=== PATIENT | male | born 1955 | race African-American/Black ===

== ENCOUNTER 2016-12-28 23:58 | Emergency (ER) | payer MEDICAID, OTHER ==
[2016-12-29] MEDS ORDERED: TRAMADOL HCL 50 MG TABLET PO ONE (01:18)
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
[2016-12-29 02:20] VITALS: BP 159/90
== END 2016-12-29 02:20 | disposition home or self-care (01) ==
LOC: ER 23:58
DX: S32.10XA Unspecified fracture of sacrum, initial encounter for closed fracture (principal); J98.11 Atelectasis; F07.81 Postconcussional syndrome; R51 Headache; M54.5 Low back pain; R10.2 Pelvic and perineal pain; M79.604 Pain in right leg; M79.605 Pain in left leg; V89.2XXA Person injured in unspecified motor-vehicle accident, traffic, initial encounter
CPT/HCPCS: 70450; 72125; 72131; 74176; 99284

== ENCOUNTER 2017-01-03 18:38 | Emergency (ER) | payer MEDICAID, OTHER ==
[2017-01-03 18:46] VITALS: BP 170/76
[2017-01-03] MEDS ORDERED: ACETAMINOPHEN 325 MG TABLET PO ONE (19:13)
[2017-01-03] MEDS ORDERED: IBUPROFEN 600 MG TABLET PO ONE (19:13)
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
== END 2017-01-03 20:01 | disposition home or self-care (01) ==
LOC: ER 18:38
DX: L03.116 Cellulitis of left lower limb (principal); M79.672 Pain in left foot
CPT/HCPCS: 99283

== ENCOUNTER 2017-01-04 14:15 | Emergency (ER) | payer MEDICAID, OTHER ==
[2017-01-04 14:33] VITALS: BP 128/86
[2017-01-04] MEDS ORDERED: IBUPROFEN 800 MG TABLET PO ONE (15:31)
[2017-01-04] MEDS ORDERED: SULFAMETHOXAZOLE/TRIMETHOPRIM 800-160 MG TABLET PO ONE (16:19)
[2017-01-04] MEDS ORDERED: CEPHALEXIN 500 MG CAPSULE PO ONE (16:19)
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
== END 2017-01-04 16:34 | disposition home or self-care (01) ==
LOC: ER 14:15
PROC: 0H9KXZZ Drainage of Right Lower Leg Skin, External Approach (ICD-10-PCS; principal; 2017-01-04)
DX: L02.415 Cutaneous abscess of right lower limb (principal); M79.604 Pain in right leg; F17.200 Nicotine dependence, unspecified, uncomplicated; Z59.8 Other problems related to housing and economic circumstances
CPT/HCPCS: 99284; 10060; J3490 ×2

== ENCOUNTER 2017-03-18 13:46 | Emergency (ER) | payer MEDICAID ==
--- NOTE | 2017-03-18 14:09 | ER Document Report ---
HPI - HPI Pain Level: 5 Past Medical History - Social History Family History: Reviewed & Not Pertinent - Past Medical History Cardiac Medical History: Reports: Hx Hypertension - not treated Renal/ Medical History: Denies: Hx Peritoneal Dialysis - Immunizations Hx Diphtheria, Pertussis, Tetanus Vaccination: No Hx Pneumococcal Vaccination: 01/13/15 Vertical Provider Document - INFECTION CONTROL TRAVEL OUTSIDE OF THE [place]. IN LAST 30 DAYS: No - RESPIRATORY O2 Sat by Pulse Oximetry: 92 Course - Vital Signs Vital signs: Temp Pulse Resp BP Pulse Ox 98.1 F 87 16 155/112 H 92 03/18/17 14:03 03/18/17 14:03 03/18/17 14:03 03/18/17 14:03 03/18/17 14:03
--- NOTE | 2017-03-18 14:33 | ER Document Report ---
ED General - General Chief Complaint: Foot Pain Stated Complaint: LEFT FOOT PAIN Time Seen by Provider: 03/18/17 14:05 Mode of Arrival: Ambulatory Information source: Patient Notes: 62-year-old male complaining of leg weakness, giving out on him since december, and shortness of breath when he walks long distances. He has a history of hypertension that is untreated. He does not have a doctor. His roommate encouraged him to come to the hospital today because this morning he had difficulty getting out of bed because of his legs and a headache. He denies headache, shortness of breath, chest pain, abdominal pain, dysuria or groin pain , or rash. TRAVEL OUTSIDE OF THE [place] IN LAST 30 DAYS: No - Related Data Allergies/Adverse Reactions: No Known Allergies Allergy (Verified 03/18/17 13:50) Past Medical History - General Information source: Patient - Social History Smoking Status: Current Every Day Smoker Frequency of alcohol use: Occasional Drug Abuse: None Lives with: Spouse/Significant other Family History: Reviewed & Not Pertinent Patient has suicidal ideation: No Patient has homicidal ideation: No - Past Medical History Cardiac Medical History: Reports: Hx Hypertension - not treated Renal/ Medical History: Denies: Hx Peritoneal Dialysis Surgical Hx: Negative - Immunizations Hx Diphtheria, Pertussis, Tetanus Vaccination: No Hx Pneumococcal Vaccination: 01/13/15 Review of Systems - Review of Systems Constitutional: No symptoms reported EENT: No symptoms reported Cardiovascular: No symptoms reported Respiratory: See HPI Gastrointestinal: No symptoms reported Genitourinary: No symptoms reported Male Genitourinary: No symptoms reported Musculoskeletal: See HPI Skin: No symptoms reported Hematologic/Lymphatic: No symptoms reported Neurological/Psychological: No symptoms reported Physical Exam - Vital signs Vitals: Temp Pulse Resp BP Pulse Ox 98.1 F 87 16 155/112 H 92 03/18/17 14:03 03/18/17 14:03 03/18/17 14:03 03/18/17 14:03 03/18/17 14:03 Interpretation: Hypertensive - General General appearance: Appears well, Alert In distress: None - HEENT Head: Normocephalic, Atraumatic Eyes: Normal Conjunctiva: Normal Pupils: PERRL Tympanic membrane: Normal Mucous membranes: Normal Pharynx: Normal Neck: Supple. No: Lymphadenopathy, Thyromegally - Respiratory Respiratory status: No respiratory distress Chest status: Nontender Breath sounds: Normal Chest palpation: Normal - Cardiovascular Rhythm: Regular Heart sounds: Normal auscultation Murmur: No - Abdominal Inspection: Normal Distension: No distension Bowel sounds: Normal Tenderness: Nontender. No: Tender Organomegaly: No organomegaly - Back Back: Normal, Nontender. No: Vertebra tenderness - Extremities General upper extremity: Normal inspection, Nontender, Normal color, Normal ROM , Normal temperature General lower extremity: Normal inspection, Nontender, Normal color, Normal ROM , Normal temperature, Normal weight bearing. No: Russell's sign - Neurological Neuro grossly intact: Yes Cognition: Normal Orientation: AAOx4 [place] Coma Scale Eye Opening: Spontaneous Cristal Coma Scale Verbal: Oriented [place] Coma Scale Motor: Obeys Commands [place] Coma Scale Total: 15 Speech: Normal Motor strength normal: LUE, RUE, LLE, RLE Sensory: Normal - Psychological Associated symptoms: Normal affect, Normal mood - Skin Skin Temperature: Warm Skin Moisture: Dry Skin Color: Normal Skin irregularity: negative: Rash Course - Re-evaluation Re-evalutation: 03/18/17 16:20 Patient states he feels better after the albuterol nebulizer I will prescribe a metered-dose inhaler. The lab work is negative the chest x-ray is negative the EKG is normal sinus rhythm I discussed this case with Dr. Rosen and he stated the patient can be discharged home with a internal medicine follow-up. - Vital Signs Vital signs: Temp Pulse Resp BP Pulse Ox 97.8 F 88 20 183/90 H 92 03/18/17 16:56 03/18/17 16:56 03/18/17 16:56 03/18/17 16:56 03/18/17 16:56 - Laboratory Result Diagrams: 03/18/17 14:49 03/18/17 14:49 Laboratory results interpreted by me: 03/18/17 03/18/17 03/18/17 14:49 14:49 14:49 Hgb 12.6 L Hct 37.5 L RDW 14.1 H Potassium 3.5 L Glucose 112 H Creatine Kinase 332 H Urine Blood SMALL H Ur Leukocyte Esterase MODERATE H - EKG Interpretation by Me EKG shows normal: Sinus rhythm Rate: Normal Rhythm: NSR Discharge - Discharge Clinical Impression: episodes of shortness of breath Leg weakness Qualifiers: Laterality: bilateral Qualified Code(s): R29.898 - Other symptoms and signs involving the musculoskeletal system Hypertension Qualifiers: Hypertension type: essential hypertension Qualified Code(s): I10 - Essential ( primary) hypertension Condition: Good Disposition: HOME, SELF-CARE Instructions: Family Physicians / Practices, Inhaled Bronchodilators ([facility]) Additional Instructions: see family practice of internal medicine doctor as soon as possible copy of all lags, ekg , chest xray given to you use the albuterol meter dose inhaler quit smoking to er if worse Prescriptions: Albuterol Sulfate [Proair HFA Inhalation Aerosol 8.5 gm MDI] 2 puff IH Q3HP PRN #1 [email or web address] PRN Reason: Referrals: JASPAL ORTIZ MD [ACTIVE STAFF] - Follow up tomorrow
[2017-03-18] MEDS ORDERED: ALBUTEROL SULFATE 0.083% NEB 2.5 MG/3 ML AMPUL NEB ONE (14:58)
[2017-03-18 15:13] LABS: ABSOLUTE EOSINOPHILS # (AUTO) 0.1 10^3/uL (0.0-0.6); ABSOLUTE LYMPHOCYTES (AUTO) 1.2 10^3/uL (0.5-4.7); ABSOLUTE MONOCYTES (AUTO) 0.6 10^3/uL (0.1-1.4); ABSOLUTE NEUT (AUTO) 3.8 10^3/uL (1.7-8.2); BASOPHILS % (AUTO) 0.5 % (0-2); EOSINOPHILS % (AUTO) 2.4 % (0-6); HEMATOCRIT 37.5 % (37.9-51.0); HEMOGLOBIN 12.6 g/dL (13.5-17.0); LYMPHOCYTES % (AUTO) 20.3 % (13-45); MEAN CORPUSCULAR HEMOGLOBIN 27.1 pg (27.0-33.4); MEAN CORPUSCULAR HGB CONC 33.6 g/dL (32.0-36.0); MEAN CORPUSCULAR VOLUME 81 fl (80-97); MONOCYTES % (AUTO) 10.5 % (3-13); PLATELET COUNT 271 10^3/uL (150-450); RED BLOOD COUNT 4.66 10^6/uL (4.35-5.55); RED CELL DISTRIBUTION WIDTH 14.1 % (11.5-14.0); SEGMENTED NEUTROPHILS % (AUTO) 66.3 % (42-78); TOTAL CELLS COUNTED % (AUTO) 100 %; WHITE BLOOD COUNT 5.8 10^3/uL (4.0-10.5)
[2017-03-18 15:14] LABS: APPEARANCE,URINE CLEAR; BILIRUBIN,URINE NEGATIVE (NEGATIVE); COLOR,URINE YELLOW; GLUCOSE, URINE NEGATIVE (NEGATIVE); KETONES,URINE NEGATIVE (NEGATIVE); LEUKOCYTE ESTERASE,URINE MODERATE (NEGATIVE); NITRITE,URINE NEGATIVE (NEGATIVE); PROTEIN,URINE NEGATIVE (NEGATIVE); URINE SPECIFIC GRAVITY 1.013; UROBILINOGEN,URINE NEGATIVE mg/dL (<2.0)
--- NOTE | 2017-03-18 15:23 | RADIOLOGY REPORT (SQ) ---
EXAM DESCRIPTION: CHEST PA/LAT COMPLETED DATE/TIME: 03/18/2017 3:10 pm REASON FOR STUDY: sob with exertion COMPARISON: 07/31/2014 EXAM PARAMETERS: NUMBER OF VIEWS: two views TECHNIQUE: Digital Frontal and Lateral radiographic views of the chest acquired. RADIATION DOSE: NA LIMITATIONS: none FINDINGS: LUNGS AND PLEURA: No opacities, masses or pneumothorax. No pleural effusion. MEDIASTINUM AND HILAR STRUCTURES: No masses or contour abnormalities. HEART AND VASCULAR STRUCTURES: Heart normal size. No evidence for failure. BONES: No acute findings. Moderate thoracic spondylosis. HARDWARE: None in the chest. OTHER: No other significant finding. IMPRESSION: NO SIGNIFICANT RADIOGRAPHIC FINDING IN THE CHEST. TECHNICAL DOCUMENTATION: JOB ID: [id number] [employer]- All Rights Reserved
[2017-03-18 15:30] LABS: ALANINE AMINOTRANSFERASE 26 U/L (21-72); ALBUMIN 3.6 g/dL (3.5-5.0); ALKALINE PHOSPHATASE 95 U/L (38-126); ANION GAP 12 (5-19); ASPARTATE AMINO TRANSFERASE 22 U/L (17-59); BILIRUBIN,DIRECT 0.2 mg/dL (0.0-0.4); BILIRUBIN,TOTAL 0.3 mg/dL (0.2-1.3); BLOOD UREA NITROGEN 10 mg/dL (7-20); CALCIUM 9.3 mg/dL (8.4-10.2); CARBON DIOXIDE 26 mmol/L (22-30); CHLORIDE 107 mmol/L (98-107); CREATINE KINASE 332 U/L (55-170); GLUCOSE 112 mg/dL (75-110); MAGNESIUM 1.8 mg/dL (1.6-2.3); POTASSIUM 3.5 mmol/L (3.6-5.0); SODIUM 144.5 mmol/L (137-145); TOTAL PROTEIN 6.6 g/dL (6.3-8.2)
[2017-03-18 15:41] LABS: CREATINE KINASE MB 3.04 ng/mL (<4.55); TROPONIN I 0.016 ng/mL
[2017-03-18] MEDS ORDERED: ALBUTEROL SULFATE HFA (90 MCG/PUFF) 200 PUFF/8.5 GM MDI IH ONE (16:23)
[2017-03-18 16:56] VITALS: BP 183/90
--- NOTE | 2017-03-19 09:22 | EKG REPORT ---
SEVERITY:- ABNORMAL ECG - SINUS RHYTHM PROBABLE LEFT ATRIAL ABNORMALITY LVH WITH SECONDARY REPOLARIZATION ABNORMALITY ANTERIOR ST ELEVATION, PROBABLY DUE TO LVH : Confirmed by: Daren Higginbotham 19-Mar-2017 09:21:08
== END 2017-03-18 16:55 | disposition home or self-care (01) ==
LOC: ER 13:46
DX: R06.02 Shortness of breath (principal); R53.1 Weakness; I10 Essential (primary) hypertension; R51 Headache; F17.200 Nicotine dependence, unspecified, uncomplicated
CPT/HCPCS: 93005; 94640; 99284; 36415; 82553; 82550; 83735; 85025; 80053; 81001; 84484; 71046; 93010; J3490

== ENCOUNTER 2017-03-19 15:39 | Emergency (ER) | payer MEDICAID ==
[2017-03-19] MEDS ORDERED: LISINOPRIL 10 MG TABLET PO ONE (16:35)
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
--- NOTE | 2017-03-19 17:52 | RADIOLOGY REPORT (SQ) ---
EXAM DESCRIPTION: CT HEAD WITHOUT COMPLETED DATE/TIME: 03/19/2017 5:29 pm REASON FOR STUDY: Left leg keeps giving out COMPARISON: None. TECHNIQUE: Axial images acquired through the brain without intravenous contrast. Images reviewed wi th bone, brain and subdural windows. Images stored on PACS. All CT scanners at this facility use dose modulation, iterative reconstruction, and/or weight based d osing when appropriate to reduce radiation dose to as low as reasonably achievable (ALARA). [facility]: Dose Right [facility]: CareDose [facility]: Dose Right [facility]: Teradose 4D [facility]: Smart PDV RADIATION DOSE: CT Rad equipment meets quality standard of care and radiation dose reduction techniq ues were employed. CTDIvol: 64.6 mGy. DLP: 1034 mGy-cm. mGy. LIMITATIONS: None. FINDINGS: VENTRICLES: Generalize compression bilateral. CEREBRUM: No masses. No hemorrhage. 3.9 mm midline shift. No evidence for acute infarction. Normal escobedo/white matter differentiation. No areas of low density in the white matter. CEREBELLUM: No masses. No hemorrhage. No alteration of density. No evidence for acute infarction. EXTRAAXIAL SPACES: There are bilateral acute and subacute mixed subdural hematomas. The largest is o n the right. Measures 2 cm. Frontal component is more acute with an isodense component along the co nvexities. Left subdural is 1.3 cm. Frontal component more acute with an isodense component along t he convexities. ORBITS AND GLOBE: No intra- or extraconal masses. Normal contour of globe without masses. CALVARIUM: No fracture. PARANASAL SINUSES: Chronic right maxillary sinus disease. SOFT TISSUES: No mass or hematoma. OTHER: No other significant finding. IMPRESSION: Bilateral combination acute/subacute subdural hematomas right larger than left with 3.9 mm midline shift. No herniation. Compression of the ipsilateral ventricles. EVIDENCE OF ACUTE STROKE: NO. COMMENT: Pertinent findings on the imaging study reported as a CRITICAL RESULT to REYNA HUNT MD at17:46 on 03/19/2017. Category of Critical Result: Subdural hematomas. Quality ID # [id number]: Final reports with documentation of one or more dose reduction techniques (e.g., Au tomated exposure control, adjustment of the mA and/or kV according to patient size, use of iterative reconstruction technique) TECHNICAL DOCUMENTATION: JOB ID: [id number] [employer]- All Rights Reserved
[2017-03-19] MEDS ORDERED: LEVETIRACETAM 500 MG TABLET PO ONE (19:29)
[2017-03-19] MEDS ORDERED: NICOTINE 14 MG/24 HR PATCH.TD24 TD ONE (22:53)
[2017-03-20 00:33] VITALS: BP 152/94
== END 2017-03-20 00:42 | disposition short-term general hospital (02) ==
LOC: ER 15:39
DX: S06.5X0A Traumatic subdural hemorrhage without loss of consciousness, initial encounter (principal); R42 Dizziness and giddiness; R51 Headache; F17.200 Nicotine dependence, unspecified, uncomplicated; V29.40XA Motorcycle driver injured in collision with unspecified motor vehicles in traffic accident, initial encounter
CPT/HCPCS: 99284; 70450; J3490 ×2

== ENCOUNTER 2017-04-19 09:45 | Emergency (ER) | payer MEDICAID ==
--- NOTE | 2017-04-19 11:03 | ER Document Report ---
HPI - HPI Pain Level: 5 - MUSCULOSKELETAL Musculoskeletal: REPORTS: Extremity pain Past Medical History - Social History Smoking Status: Current Every Day Smoker Chew tobacco use (# tins/day): No Frequency of alcohol use: None Drug Abuse: None Family History: Reviewed & Not Pertinent Patient has suicidal ideation: No Patient has homicidal ideation: No - Past Medical History Cardiac Medical History: Reports: Hx Hypertension - not treated Denies: Hx Congestive Heart Failure Pulmonary Medical History: Denies: Hx COPD Neurological Medical History: Denies: Hx Cerebrovascular Accident Endocrine Medical History: Denies: Hx Diabetes Mellitus Type 1, Hx Diabetes Mellitus Type 2 Renal/ Medical History: Denies: Hx Peritoneal Dialysis - Immunizations Hx Diphtheria, Pertussis, Tetanus Vaccination: No Hx Pneumococcal Vaccination: 01/13/15 Vertical Provider Document - INFECTION CONTROL TRAVEL OUTSIDE OF THE [place]. IN LAST 30 DAYS: No - RESPIRATORY O2 Sat by Pulse Oximetry: 97 Course - Vital Signs Vital signs: Temp Pulse Resp BP Pulse Ox 98.1 F 73 18 151/74 H 97 04/19/17 10:16 04/19/17 10:16 04/19/17 10:16 04/19/17 10:16 04/19/17 10:16
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
--- NOTE | 2017-04-19 11:58 | RADIOLOGY REPORT (SQ) ---
EXAM DESCRIPTION: CT HEAD WITHOUT COMPLETED DATE/TIME: 04/19/2017 11:36 am REASON FOR STUDY: recent dx subdural hematoma COMPARISON: 03/19/2017, 12/29/2016, 12/24/2016 CT brain exams TECHNIQUE: Axial images acquired through the brain without intravenous contrast. Images reviewed wi th bone, brain and subdural windows. Images stored on PACS. All CT scanners at this facility use dose modulation, iterative reconstruction, and/or weight based d osing when appropriate to reduce radiation dose to as low as reasonably achievable (ALARA). [facility]: Dose Right [facility]: CareDose [facility]: Dose Right [facility]: Teradose 4D [facility]: Smart Bubbl RADIATION DOSE: CT Rad equipment meets quality standard of care and radiation dose reduction techniq ues were employed. CTDIvol: 64.6 mGy. DLP: 1163 mGy-cm. mGy. LIMITATIONS: None. FINDINGS: Since the prior study 03/19/2017, patient has had surgery to extract bilateral subdural hemo rrhages. On the right side, an anterior frontal and posterior frontal kendell hole are present. In the inferior aspect of the right frontal region, a thin rim of residual subacute subdural hemorrhage is present 8 mm in thickness on axial image 19 (was 17 mm in thickness). On the left side, no residual subdural hemorrhage is identified. There is a left posterior frontal/t emporal kendell hole. Left posterior frontal dural calcification without hemorrhage is present adjacent to the coronal. VENTRICLES: Normal size and contour. CEREBRUM: No masses. No hemorrhage. No midline shift. No evidence for acute infarction. Old ischem ic change in the right caudate. Minimal bifrontal small vessel ischemic change. Mild bilateral basa l ganglia calcifications. No CT evidence of acute large territory ischemic change. CEREBELLUM: No masses. No hemorrhage. No alteration of density. No evidence for acute infarction. EXTRAAXIAL SPACES: As above. ORBITS AND GLOBE: No intra- or extraconal masses. Normal contour of globe without masses. CALVARIUM: No fracture. PARANASAL SINUSES: Right maxillary sinus mucous membrane thickening. SOFT TISSUES: No mass or hematoma. OTHER: No other significant finding. IMPRESSION: Post surgery for extraction of bilateral subdural hemorrhages since 03/19/2017. Minimal t hin rim right anterior frontal subdural fluid collection is present today, smaller than on 03/19/2017. No local mass effect. No significant left subdural fluid collection today. No CT evidence of acute large territory ischemic change, acute intracranial hemorrhage, mass effect, or midline shift. EVIDENCE OF ACUTE STROKE: NO. COMMENT: Quality ID # [id number]: Final reports with documentation of one or more dose reduction techniques (e.g., Automated exposure control, adjustment of the mA and/or kV according to patient size, use of iterative reconstruction technique) TECHNICAL DOCUMENTATION: JOB ID: [id number] [employer]- All Rights Reserved
--- NOTE | 2017-04-19 12:42 | EKG REPORT ---
SEVERITY:- ABNORMAL ECG - SINUS RHYTHM PROBABLE LEFT ATRIAL ABNORMALITY LEFT VENTRICULAR HYPERTROPHY ANTERIOR ST ELEVATION, PROBABLY DUE TO LVH : Confirmed by: Daren Higginbotham 19-Apr-2017 12:41:37
[2017-04-19 14:06] LABS: ABSOLUTE BASOPHILS # (AUTO) 0.1 10^3/uL (0.0-0.2); ABSOLUTE EOSINOPHILS # (AUTO) 0.1 10^3/uL (0.0-0.6); ABSOLUTE LYMPHOCYTES (AUTO) 1.2 10^3/uL (0.5-4.7); ABSOLUTE MONOCYTES (AUTO) 0.5 10^3/uL (0.1-1.4); ABSOLUTE NEUT (AUTO) 2.7 10^3/uL (1.7-8.2); BASOPHILS % (AUTO) 1.2 % (0-2); EOSINOPHILS % (AUTO) 3.1 % (0-6); HEMATOCRIT 34.8 % (37.9-51.0); HEMOGLOBIN 11.7 g/dL (13.5-17.0); LYMPHOCYTES % (AUTO) 25.7 % (13-45); MEAN CORPUSCULAR HEMOGLOBIN 26.7 pg (27.0-33.4); MEAN CORPUSCULAR HGB CONC 33.7 g/dL (32.0-36.0); MEAN CORPUSCULAR VOLUME 79 fl (80-97); MONOCYTES % (AUTO) 10.2 % (3-13); PLATELET COUNT 266 10^3/uL (150-450); RED BLOOD COUNT 4.39 10^6/uL (4.35-5.55); RED CELL DISTRIBUTION WIDTH 13.6 % (11.5-14.0); SEGMENTED NEUTROPHILS % (AUTO) 59.8 % (42-78); TOTAL CELLS COUNTED % (AUTO) 100 %; WHITE BLOOD COUNT 4.6 10^3/uL (4.0-10.5)
[2017-04-19 14:10] LABS: INTERNATIONAL RATION (INR) 1.01
[2017-04-19 14:11] LABS: PARTIAL THROMBOPLASTIN TIME 37.2 SEC (23.5-35.8)
[2017-04-19 14:30] LABS: ALANINE AMINOTRANSFERASE 29 U/L (21-72); ALBUMIN 3.8 g/dL (3.5-5.0); ALKALINE PHOSPHATASE 104 U/L (38-126); ANION GAP 8 (5-19); ASPARTATE AMINO TRANSFERASE 22 U/L (17-59); BILIRUBIN,DIRECT 0.1 mg/dL (0.0-0.4); BILIRUBIN,TOTAL 0.3 mg/dL (0.2-1.3); BLOOD UREA NITROGEN 8 mg/dL (7-20); CALCIUM 9.5 mg/dL (8.4-10.2); CARBON DIOXIDE 27 mmol/L (22-30); CHLORIDE 107 mmol/L (98-107); CREATINE KINASE 252 U/L (55-170); GLUCOSE 94 mg/dL (75-110); LIPASE 35.5 U/L (23-300); POTASSIUM 4.1 mmol/L (3.6-5.0); SODIUM 142.4 mmol/L (137-145); TOTAL PROTEIN 6.7 g/dL (6.3-8.2)
[2017-04-19 14:48] LABS: TROPONIN I < 0.012 ng/mL
--- NOTE | 2017-04-19 16:10 | ER Document Report ---
ED General - General Chief Complaint: Leg Pain Stated Complaint: LEG PAIN Time Seen by Provider: 04/19/17 11:03 Mode of Arrival: Ambulatory TRAVEL OUTSIDE OF THE [place] IN LAST 30 DAYS: No - HPI Patient complains to provider of: Patient complained of bilateral leg pain, head pain, chest pain Onset: This morning Associated symptoms: Body/muscle aches, Chest pain. denies: Diarrhea, Fever, Nausea, Vomiting, Shortness of breath, Weakness Exacerbated by: Movement Relieved by: Denies - Related Data Allergies/Adverse Reactions: No Known Allergies Allergy (Verified 04/19/17 09:53) Past Medical History - General Information source: Patient - Social History Smoking Status: Current Every Day Smoker Chew tobacco use (# tins/day): No Frequency of alcohol use: None Drug Abuse: None Family History: Reviewed & Not Pertinent Patient has suicidal ideation: No Patient has homicidal ideation: No - Past Medical History Cardiac Medical History: Reports: Hx Hypertension - not treated Denies: Hx Congestive Heart Failure Pulmonary Medical History: Reports: Hx Bronchitis Denies: Hx COPD Neurological Medical History: Reports: Other - Bilateral subdural hematomas recently drained. Denies: Hx Cerebrovascular Accident Endocrine Medical History: Denies: Hx Diabetes Mellitus Type 1, Hx Diabetes Mellitus Type 2 Renal/ Medical History: Denies: Hx Peritoneal Dialysis Malignancy Medical History: Reports None Musculoskeltal Medical History: Reports Hx Muscle Weakness Skin Medical History: Reports None Psychiatric Medical History: Reports: None Traumatic Medical History: Reports: None Past Surgical History: Reports: Hx Neurologic Surgery - drainage SDH - Immunizations Hx Diphtheria, Pertussis, Tetanus Vaccination: No Hx Pneumococcal Vaccination: 01/13/15 Review of Systems - Review of Systems Constitutional: Weakness. denies: Fever EENT: No symptoms reported Cardiovascular: See HPI Respiratory: No symptoms reported Gastrointestinal: No symptoms reported Genitourinary: No symptoms reported Male Genitourinary: No symptoms reported Musculoskeletal: See HPI Skin: No symptoms reported Hematologic/Lymphatic: No symptoms reported Neurological/Psychological: No symptoms reported Physical Exam - Vital signs Vitals: Temp Pulse Resp BP Pulse Ox 98.1 F 73 18 151/74 H 97 04/19/17 10:16 04/19/17 10:16 04/19/17 10:16 04/19/17 10:16 04/19/17 10:16 - Notes Notes: PHYSICAL EXAMINATION: GENERAL: Well-appearing, well-nourished and in no acute distress. HEAD: Atraumatic, normocephalic. EYES: Pupils equal round and reactive to light, extraocular movements intact, sclera anicteric, conjunctiva are normal. ENT: Nares patent, oropharynx clear without exudates. Moist mucous membranes. NECK: Normal range of motion, supple without lymphadenopathy LUNGS: Breath sounds clear to auscultation bilaterally and equal. No wheezes rales or rhonchi. HEART: Regular rate and rhythm without murmurs ABDOMEN: Soft, nontender, nondistended abdomen. No guarding, no rebound. No masses appreciated. Musculoskeletal: Normal range of motion, no pitting or edema. No cyanosis. No calf swelling or tenderness with palpation NEUROLOGICAL: Cranial nerves grossly intact. Normal speech, normal gait. Normal sensory, motor exams PSYCH: Normal mood, normal affect. SKIN: Warm, Dry, normal turgor, no rashes or lesions noted. Course - Re-evaluation Re-evalutation: 04/19/17 16:09 We did call [id number] in the electrical instrument technician stated that there was a left popliteal cyst no DVTs bilaterally. 04/19/17 20:24 Prior to discharge patient was up and ambulating the halls. He stated that he had a appointment with his humane agent and he had to leave. 04/19/17 20:27 Labs- All tests 24 hr 04/19/17 04/19/17 04/19/17 13:52 13:52 13:52 WBC 4.6 RBC 4.39 Hgb 11.7 L Hct 34.8 L MCV 79 L MCH 26.7 L MCHC 33.7 RDW 13.6 Plt Count 266 Seg Neutrophils % 59.8 Lymphocytes % 25.7 Monocytes % 10.2 Eosinophils % 3.1 Basophils % 1.2 Absolute Neutrophils 2.7 Absolute Lymphocytes 1.2 Absolute Monocytes 0.5 Absolute Eosinophils 0.1 Absolute Basophils 0.1 PT 14.0 INR 1.01 APTT 37.2 H Sodium 142.4 Potassium 4.1 Chloride 107 Carbon Dioxide 27 Anion Gap 8 BUN 8 Creatinine 0.75 Est GFR ( Amer) > 60 Est GFR (Non-Af Amer) > 60 Glucose 94 Calcium 9.5 Total Bilirubin 0.3 Direct Bilirubin 0.1 Neonat Total Bilirubin Not Reportable Neonat Direct Bilirubin Not Reportable Neonat Indirect Bili Not Reportable AST 22 ALT 29 Alkaline Phosphatase 104 Creatine Kinase 252 H CK-MB (CK-2) Troponin I Total Protein 6.7 Albumin 3.8 Lipase 35.5 04/19/17 13:52 WBC RBC Hgb Hct MCV MCH MCHC RDW Plt Count Seg Neutrophils % Lymphocytes % Monocytes % Eosinophils % Basophils % Absolute Neutrophils Absolute Lymphocytes Absolute Monocytes Absolute Eosinophils Absolute Basophils PT INR APTT Sodium Potassium Chloride Carbon Dioxide Anion Gap BUN Creatinine Est GFR ( Amer) Est GFR (Non-Af Amer) Glucose Calcium Total Bilirubin Direct Bilirubin Neonat Total Bilirubin Neonat Direct Bilirubin Neonat Indirect Bili AST ALT Alkaline Phosphatase Creatine Kinase CK-MB (CK-2) 1.20 Troponin I < 0.012 Total Protein Albumin Lipase 04/19/17 20:[address] 04/19/17 11:15 IMPRESSION: Post surgery for extraction of bilateral subdural hemorrhages since 03/19/2017. Minimal thin rim right anterior frontal subdural fluid collection is present today, smaller than on 03/19/2017. No local mass effect. No significant left subdural fluid collection today. No CT evidence of acute large territory ischemic change, acute intracranial hemorrhage, mass effect, or midline shift. EVIDENCE OF ACUTE STROKE: NO. - Vital Signs Vital signs: Temp Pulse Resp BP Pulse Ox 97.4 F 72 20 150/92 H 97 04/19/17 16:12 04/19/17 16:12 04/19/17 16:12 04/19/17 16:12 04/19/17 16:12 - Laboratory Result Diagrams: 04/19/17 13:52 04/19/17 13:52 Laboratory results interpreted by me: 04/19/17 04/19/17 04/19/17 13:52 13:52 13:52 Hgb 11.7 L Hct 34.8 L MCV 79 L MCH 26.7 L APTT 37.2 H Creatine Kinase 252 H - EKG Interpretation by Fl EKG shows normal: Sinus rhythm Rate: Normal Voltage: Consistant with LVH When compared to previous EKG there are: No significant change Discharge - Discharge Clinical Impression: Leg pain Disposition: HOME, SELF-CARE Instructions: Leg Pain Nonspecific ([facility]) Additional Instructions: Follow up with your physician tomorrow for further care or return to the ED IMMEDIATELY if symptoms worsen or new concerns occur. If you cannot afford to follow up with your primary care physician a list of low cost clinics have been provided at the end of your discharge papers as well. Referrals: [facility] [Provider Group] - Follow up as needed
[2017-04-19 16:13] VITALS: BP 150/92
--- NOTE | 2017-04-20 09:09 | XCELERA REPORT ---
[address] [address] Lower Extremity Venous Evaluation Name: GORDON HERNANDEZ Age: 62 yrs Gender: Male : 1955 Patient Status: Emergency Patient Location: ER Study Date: 04/19/2017 11:50 AM Procedure: Color flow and duplex imaging bilaterally of the veins of the lower extremities as well as the Common Femoral veins. Reason For Study: bilateral calf pain Ordering Physician: REEMA JOAQUIN Performed By: Karrie Rodrigues Right Sided Venous Evaluation Normal vessel filling wall to wall, compression and augmentation as well as Colour flow down to the infrageniculate veins. Left Sided Venous Evaluation Noon vascular mass, in Popliteal fossa, 2.2 x 2.6 x 3.6 cms. Normal vessel filling wall to wall, compression and augmentation as well as Colour flow down to the infrageniculate veins. Interpretation Summary No duplex evidence of DVT or obstruction in the bilateral lower extremities. Incidental finding of Left Bakers cyst. : REEMA JOAQUIN > Antonio Alas
== END 2017-04-19 16:19 | disposition home or self-care (01) ==
LOC: ER 09:45
DX: M79.605 Pain in left leg (principal); M79.604 Pain in right leg; M79.1 Myalgia; R07.9 Chest pain, unspecified; F17.200 Nicotine dependence, unspecified, uncomplicated
CPT/HCPCS: 36415; 70450; 80053; 82550; 82553; 83690; 84484; 85025; 85610; 85730; 93005; 93010; 93970; 99285

== ENCOUNTER 2018-03-23 23:02 | Emergency (ER) | payer MEDICARE, MEDICAID ==
[2018-03-23] MEDS ORDERED: HYDROCHLOROTHIAZIDE 25 MG TABLET PO ONE (23:42)
[2018-03-23] MEDS ORDERED: AMLODIPINE BESYLATE 10 MG TABLET PO ONE (23:42)
[2018-03-23] MEDS ORDERED: ALBUTEROL SULFATE 0.083% NEB 2.5 MG/3 ML AMPUL NEB ONE (23:43)
--- NOTE | 2018-03-23 23:49 | ER Document Report ---
ED General - General Chief Complaint: Shortness Of Breath Stated Complaint: SHORTNESS OF BREATH Time Seen by Provider: 03/23/18 23:37 Notes: Patient is a 63-year-old male presents with complaint of difficulty breathing. He is also has some nausea. No vomiting. He says he just feels weak or than normal. He says he feels as if he has been going downhill over the course of a year. He is noted to have very high blood pressure when he arrives. Patient says that he used to be on blood pressure medication but he still follow-up with his doctor stopped taking medication and she did not feel it was any help to him. He denies any chest pain. He says he is been coughing a lot has some shortness of breath. No fevers. He has some sore throat. Some nausea. No vomiting. No diarrhea. Last bowel movement was today and was normal. No blood in the stool. On exam his abdomen looks a little bit distended however the patient himself says this is normal. His says that this may be a little bit more distended than normal. Patient says he will occasionally have a headache but has not had any headache today. No weakness or numbness into the extremities. TRAVEL OUTSIDE OF THE [place] IN LAST 30 DAYS: No - Related Data Allergies/Adverse Reactions: No Known Allergies Allergy (Verified 03/24/18 05:47) Past Medical History - Social History Smoking Status: Current Every Day Smoker Frequency of alcohol use: Occasional Drug Abuse: None Family History: Reviewed & Not Pertinent - Past Medical History Cardiac Medical History: Reports: Hx Hypertension - not treated Denies: Hx Congestive Heart Failure Pulmonary Medical History: Reports: Hx Bronchitis Denies: Hx COPD Neurological Medical History: Denies: Hx Cerebrovascular Accident Endocrine Medical History: Denies: Hx Diabetes Mellitus Type 1, Hx Diabetes Mellitus Type 2 Renal/ Medical History: Denies: Hx Peritoneal Dialysis Musculoskeletal Medical History: Reports Hx Muscle Weakness Past Surgical History: Reports: Hx Neurologic Surgery - drainage SDH - Immunizations Hx Diphtheria, Pertussis, Tetanus Vaccination: No Hx Pneumococcal Vaccination: 01/13/15 Review of Systems - Review of Systems Notes: My Normal Review Basic REVIEW OF SYSTEMS: CONSTITUTIONAL : Denies fever, chills, or sweats. Denies recent illness. EENT: Throat. CARDIOVASCULAR: Denies chest pain. RESPIRATORY: Cough. Some shortness of breath. GASTROINTESTINAL: Denies abdominal pain. Nausea. Some mild abdominal distention. GENITOURINARY: Denies difficulty urinating, painful urination, burning, frequency, or blood in urine. MUSCULOSKELETAL: Denies neck or back pain or joint pain or swelling. SKIN: Denies rash or skin lesions. NEUROLOGICAL: Denies altered mental status or loss of consciousness. Denies headache. Denies weakness or paralysis or loss of use of either side. Denies problems with gait or speech. Denies sensory or motor loss. ALL OTHER SYSTEMS REVIEWED AND NEGATIVE. Physical Exam - Vital signs Vitals: Temp Pulse Resp BP Pulse Ox 98.0 F 70 29 H 215/91 H 93 03/23/18 23:13 03/23/18 23:13 03/23/18 23:13 03/23/18 23:13 03/23/18 23:13 - Notes Notes: General Appearance: Well nourished, alert, cooperative, no acute distress, no obvious discomfort. Vitals: reviewed, See vital signs table. Head: no swelling or tenderness to the head Eyes: PERRL, EOMI, Conjuctiva clear Mouth: No decreasd moisture Throat: No tonsillar inflammation, No airway obstruction, No lymphadenopathy Neck: Supple, no neck tenderness, No thyromegaly Lungs: Mucousy sounding breath sounds bilaterally. No wheezing. Slight tachypn ea. Heart: Normal rate, Regular rythm, No murmur, no rub Abdomen: Normal BS, soft, No rigidity, No abdominal tenderness, slightly distended abdomen, no guarding, no rebound, no abdominal masses, no organomegaly Extremities: strength 5/5 in all extremities, good pulses in all extremities, no swelling or tenderness in the extremities, no edema. Skin: warm, dry, appropriate color, no rash Neuro: speech clear, oriented x 3, normal affect, responds appropriately to questions. Cranial nerves II through XII are intact. Distal sensation intact. Patient moves all extremities without difficulty. Course - Re-evaluation Re-evalutation: 03/23/18 23:45 Patient does have some changes on his EKG. I did not suspect acute ST elevation NH at this time. Patient has no chest pain. He looks clinically well. He does have some shortness of breath however he does have what sounds to be a lot of mucus in his lungs and therefore given breathing treatment. Being his chest pain-free and the mild ST segment elevation he has is similar to his previous EKG I do not feel that he is a candidate for thrombolytics going forward for STEMI workup. I suspect a lot of this is related to his untreated hypertension. I will place him on medication for his hypertension. Blood work has been drawn including cardiac enzymes. He will get a breathing treatment. Chest x-rays been ordered. We will keep on the monitor and progress from here. 03/24/18 03:18 Patient was given some Lasix. He has urinated several times since then. Breathing is improving. He is currently resting comfortably with oxygen saturation 97%. He looks well. Is no distress. His blood pressure is improving since the blood pressure medications. His current blood pressure is 166/89. Patient any chest pain however I still did a troponin and delta troponin because of the nausea and weakness in the significant hypertension. His troponins have remained stable and did not show any evidence of him having any form of myocardial infarction. I informed patient that he needs to continue take the blood pressure medication as prescribed. Also prescribe him a low-dose Lasix to take every day. I will refer him to the milk receiver for further evaluation and management of his blood pressure. Patient currently does not have a primary care physician. Patient agrees to follow-up with a milk receiver. I strongly encouraged him to return to ER immediately if he has fevers, vomiting, any abdominal pain, or feels unwell. Dictation of this chart was performed using voice recognition software; therefore, there may be some unintended grammatical errors. - Vital Signs Vital signs: Temp Pulse Resp BP Pulse Ox 97.7 F 70 21 H 166/89 H 96 03/24/18 03:16 03/23/18 23:13 03/24/18 03:16 03/24/18 03:16 03/24/18 03:16 - Laboratory Result Diagrams: 03/23/18 23:35 03/23/18 23:35 Laboratory results interpreted by me: 03/23/18 03/23/18 23:35 23:35 Hgb 13.2 L RDW 14.2 H Chloride 110 H Glucose 129 H - EKG Interpretation by Me Additional EKG results interpreted by me: 03/23/18 23:44 EKG is reviewed and interpreted by me. EKG shows sinus rhythm with a rate of 60 bpm. Patient does have some ST segment elevation in the anterior precordial leads. These had this in the past and his previous EKG from 07/20/2017. He does have some increased elevation in lead V3 especially on the initial QRS complex however the next 2 within that lead look more like his previous EKG. No reciprocal ST segment depression. He does have some T wave inversions in the lateral leads that are new comparison to his previous EKG. He does have increasing LVH on his EKG likely causing a lot of these T wave inversions and changes. Discharge - Discharge Clinical Impression: Pulmonary vascular congestion, Nausea Hypertension Qualifiers: Hypertension type: unspecified Qualified Code(s): I10 - Essential (primary) hypertension Condition: Good Disposition: HOME, SELF-CARE Additional Instructions: You have high blood pressure. Fortunately this is responding to medications have given you. I will prescribe you the same medications and is important that you do take them. If you continue to not treat your blood pressure will eventually have long-term complications such as kidney problems, heart attacks, possible strokes, and other things that could prove fatal. Please take the blood pressure medications as prescribed. I have prescribed you small water pill. Please take this as prescribed and please follow-up with the milk receiver, Dr. Abdi. Please call his office this morning to make a close follow-up appointment. Please return to the ER immediately if you have chest pain, difficulty breathing, vomiting, any abdominal pain, any weakness or numbness into your legs or arms, headache, or if you feel unwell. Prescriptions: RX: Amlodipine Besylate [Norvasc 10 mg Tablet] 10 mg PO DAILY #30 tablet Furosemide [Lasix 20 mg Tablet] 20 mg PO QAM #30 tablet RX: Hydrochlorothiazide [Hydrodiuril 25 mg Tablet] 25 mg PO QAM #30 tablet RX: Potassium Chloride 10 meq PO DAILY #30 capsule.er Referrals: IVETH ABDI MD [ACTIVE STAFF] - 03/28/18 (call office this am to make the follow up appointment.)
[2018-03-23 23:56] LABS: ABSOLUTE EOSINOPHILS # (AUTO) 0.2 10^3/uL (0.0-0.6); ABSOLUTE LYMPHOCYTES (AUTO) 1.3 10^3/uL (0.5-4.7); ABSOLUTE MONOCYTES (AUTO) 0.5 10^3/uL (0.1-1.4); ABSOLUTE NEUT (AUTO) 3.4 10^3/uL (1.7-8.2); BASOPHILS % (AUTO) 0.6 % (0-2); EOSINOPHILS % (AUTO) 2.9 % (0-6); HEMATOCRIT 39.1 % (37.9-51.0); HEMOGLOBIN 13.2 g/dL (13.5-17.0); LYMPHOCYTES % (AUTO) 24.2 % (13-45); MEAN CORPUSCULAR HEMOGLOBIN 28.1 pg (27.0-33.4); MEAN CORPUSCULAR HGB CONC 33.8 g/dL (32.0-36.0); MEAN CORPUSCULAR VOLUME 83 fl (80-97); MONOCYTES % (AUTO) 9.5 % (3-13); PLATELET COUNT 247 10^3/uL (150-450); RED CELL DISTRIBUTION WIDTH 14.2 % (11.5-14.0); SEGMENTED NEUTROPHILS % (AUTO) 62.8 % (42-78); TOTAL CELLS COUNTED % (AUTO) 100 %; WHITE BLOOD COUNT 5.4 10^3/uL (4.0-10.5)
[2018-03-23 23:59] LABS: ALANINE AMINOTRANSFERASE 37 U/L (21-72); ALBUMIN 3.9 g/dL (3.5-5.0); ALKALINE PHOSPHATASE 106 U/L (38-126); ANION GAP 7 (5-19); ASPARTATE AMINO TRANSFERASE 26 U/L (17-59); BILIRUBIN,DIRECT 0.2 mg/dL (0.0-0.4); BILIRUBIN,TOTAL 0.3 mg/dL (0.2-1.3); BLOOD UREA NITROGEN 20 mg/dL (7-20); CARBON DIOXIDE 24 mmol/L (22-30); CHLORIDE 110 mmol/L (98-107); GLUCOSE 129 mg/dL (75-110); POTASSIUM 3.7 mmol/L (3.6-5.0); SODIUM 141.3 mmol/L (137-145); TOTAL PROTEIN 6.6 g/dL (6.3-8.2)
--- NOTE | 2018-03-24 00:27 | RADIOLOGY REPORT (SQ) ---
EXAM DESCRIPTION: XR ABDOMEN SUPINE AND ERECT WITH CHEST (ABD ACUTE SERIES) COMPLETED DATE/TME: 03/23/2018 23:48 CLINICAL HISTORY: 63 years, Male, abdominal distention, shortness of breath COMPARISON: Chest x-ray 03/18/2017 NUMBER OF VIEWS: 4 TECHNIQUE: Upright chest with supine and erect views of the abdomen LIMITATIONS: None. FINDINGS: Cardiomegaly. Coarse interstitial changes bilaterally with equivocal groundglass opacities in the perihilar regions, likely reflecting pulmonary edema. Atheromatous change thoracic aorta. No pneumothorax. No free air under the hemidiaphragms. Nonspecific bowel gas pattern. Nondilated air-filled loops of large and small bowel with scattered air-fluid levels likely reflect ileus. No free air IMPRESSION: Cardiomegaly with pulmonary edema pattern. Probable ileus. copyright 2010 [employer]- All Rights Reserved
[2018-03-24] MEDS ORDERED: FUROSEMIDE INJ/PF 40 MG/4 ML SDV IV ONE (00:50)
[2018-03-24] MEDS ORDERED: ONDANSETRON HCL INJ/PF 4 MG/2 ML SDV IV ONE (00:56)
[2018-03-24 03:41] VITALS: BP 166/89
--- NOTE | 2018-03-24 07:43 | EKG REPORT ---
SEVERITY:- ABNORMAL ECG - SINUS RHYTHM PROBABLE LEFT ATRIAL ABNORMALITY LVH WITH SECONDARY REPOLARIZATION ABNORMALITY : Confirmed by: Paul Carr MD 24-Mar-2018 07:42:57
== END 2018-03-24 03:38 | disposition home or self-care (01) ==
LOC: ER 23:02
DX: I11.9 Hypertensive heart disease without heart failure (principal); R09.89 Other specified symptoms and signs involving the circulatory and respiratory systems; R06.02 Shortness of breath; R11.0 Nausea; R53.1 Weakness; R05 Cough; J02.9 Acute pharyngitis, unspecified; F17.200 Nicotine dependence, unspecified, uncomplicated
CPT/HCPCS: 93005; 94640; 99285; 96374; 96375; 36415; 85025; 80053; 84484; 83880; 74022; 93010; J1940; J2405; A9270 ×2

== ENCOUNTER 2018-03-24 05:42 | Emergency (ER) | payer MEDICARE, MEDICAID ==
[2018-03-24 06:32] VITALS: BP 181/87
[2018-03-24] MEDS ORDERED: ACETAMINOPHEN 325 MG TABLET PO ONE (06:33)
--- NOTE | 2018-03-24 06:38 | ER Document Report ---
ED General - General Chief Complaint: Hand Pain Stated Complaint: CRAMPING Time Seen by Provider: 03/24/18 06:28 TRAVEL OUTSIDE OF THE [place] IN LAST 30 DAYS: No - HPI Notes: Patient is a 63-year-old male that presents to the emergency department for chief complaint of hand cramping. Patient states he was sitting in our waiting room and started to have cramping in both of his hands. He states the right was greater than the left. He is also complaining of some cramping in his neck. He states that he was just discharged from the emergency room and was laying in 1 of the chairs which is why his neck is hurting. He has not had any ride home since his previous visit in the ER. He states he is still not sure how he is going to get home. Patient is requesting a dose of Tylenol. He denies any current chest pain, shortness of breath, abdominal pain, nausea, vomiting, fevers or chills. Past Medical History: Reviewed in chart Past Surgical History: Reviewed in chart Social History: Reviewed in chart Family History: Reviewed and noncontributory for presenting illness Allergies: Reviewed, see documented allergy list. REVIEW OF SYSTEMS: CONSTITUTIONAL : No fever No chills No diaphoresis No recent illness EENT: No vision changes No congestion No sore throat CARDIOVASCULAR: No chest pain No palpitations RESPIRATORY: No shortness of breath No cough No difficulty breathing GASTROINTESTINAL: No abdominal pain No nausea No vomiting No diarrhea GENITOURINARY: No dysuria No hematuria No difficulty urinating MUSCULOSKELETAL: No back pain No leg pain Bilateral hand pain Neck pain SKIN: No rashes No lesions LYMPHATIC: No swollen, enlarged glands. NEUROLOGICAL: No lightheadedness No headache No weakness No paresthesias PSYCHIATRIC: No anxiety No depression PHYSICAL EXAMINATION: Vital signs reviewed, nursing noted reviewed. GENERAL: Well-appearing, well-nourished and in no acute distress. HEAD: Atraumatic, normocephalic. EYES: Eyes appear normal, extraocular movements intact, sclera anicteric, conjunctiva are normal. ENT: nares patent, oropharynx clear without exudates. Moist mucous membranes. NECK: Normal range of motion, supple without lymphadenopathy LUNGS: Breath mildly diminished bilaterally. No accessory muscle use. No wheezes rales or rhonchi. HEART: Regular rate and rhythm without murmurs ABDOMEN: Soft, nontender, normoactive bowel sounds. No rebound, guarding, or rigidity. No masses appreciated. EXTREMITIES: Nontender, good range of motion, no pitting or edema. NEUROLOGICAL: No focal neurological deficits. Moves all extremities spontaneously Motor and sensory grossly intact on exam. PSYCH: Normal mood, normal affect. SKIN: Warm, Dry, normal turgor, no rashes or lesions noted on exposed skin - Related Data Allergies/Adverse Reactions: No Known Allergies Allergy (Verified 03/24/18 05:47) Past Medical History - Social History Smoking Status: Unknown if Ever Smoked Family History: Reviewed & Not Pertinent Patient has suicidal ideation: No Patient has homicidal ideation: No - Past Medical History Cardiac Medical History: Reports: Hx Hypertension - not treated Denies: Hx Congestive Heart Failure Pulmonary Medical History: Reports: Hx Bronchitis Denies: Hx COPD Neurological Medical History: Denies: Hx Cerebrovascular Accident Endocrine Medical History: Denies: Hx Diabetes Mellitus Type 1, Hx Diabetes Mellitus Type 2 Renal/ Medical History: Denies: Hx Peritoneal Dialysis Musculoskeletal Medical History: Reports Hx Muscle Weakness Past Surgical History: Reports: Hx Neurologic Surgery - drainage SDH - Immunizations Hx Diphtheria, Pertussis, Tetanus Vaccination: No Hx Pneumococcal Vaccination: 01/13/15 Physical Exam - Vital signs Vitals: Temp Pulse Resp BP Pulse Ox 97.9 F 75 20 198/84 H 93 03/24/18 05:47 03/24/18 05:47 03/24/18 05:47 03/24/18 05:47 03/24/18 05:47 Course - Re-evaluation Re-evalutation: 03/24/18 06:38 Vitals reviewed. Nursing notes reviewed. Patient is hemodynamically stable. He was just discharged from the emergency room after having his troponins trended. He is hypertensive with history of hypertension and noncompliance with medication. Patient had no endorgan damage on blood work drawn just a few hours ago. He is in no respiratory distress. Currently he has no appreciable spasm in his hands or neck. He is not having chest pain and I do not feel this neck issue is related to ACS. He was laying in a chair trying to sleep which likely caused his neck pain. Patient was given a dose of Tylenol for his symptoms. He did receive Lasix prior to being discharged however his potassium was 3.7. I do not feel that repeating his potassium is currently indicated since he has no observable signs of spasm. Patient was encouraged to continue following with his primary care doctor as previously recommended. He is stable at discharge. - Vital Signs Vital signs: Temp Pulse Resp BP Pulse Ox 97.9 F 75 20 181/87 H 97 03/24/18 05:47 03/24/18 05:47 03/24/18 05:47 03/24/18 06:25 03/24/18 06:25 Discharge - Discharge Clinical Impression: Hand cramps, Neck pain Condition: Stable Disposition: HOME, SELF-CARE Additional Instructions: Please return to the emergency department if you have any worsening, or concern of your symptoms. Please return to the emergency department if you develop chest pain, difficulty breathing, severe abdominal pain, or ongoing vomiting. Please follow-up with your primary care physician in 2-3 days and any other recommended physicians. If prescribed, take all medications as directed. If you have any questions or concerns do not hesitate to return the emergency department for evaluation. Continue to follow with a primary care doctor for further blood pressure management. Take Tylenol or ibuprofen at home as needed for pain Stay well-hydrated
== END 2018-03-24 07:07 | disposition home or self-care (01) ==
LOC: ER 05:42
DX: R25.2 Cramp and spasm (principal); M54.2 Cervicalgia
CPT/HCPCS: 99283; A9270

== ENCOUNTER 2018-05-02 14:22 | Emergency (ER) | payer MEDICAID, MEDICARE ==
[2018-05-02] MEDS ORDERED: NORMAL SALINE 500 ML IV ONE (17:12)
--- NOTE | 2018-05-02 17:17 | ER Document Report ---
ED Medical Screen (RME) - General Chief Complaint: Dizziness Stated Complaint: DIZZY Time Seen by Provider: 05/02/18 17:08 Notes: Patient is a 63 year old male that presents to the emergency department for chief complaint of weakness. Symptoms have been going on for some time, even up to a year, but most recently in the past few weeks has been feeling more weak generally, not one side of the other. ROS: Other than noted above, the 12 point review of systems was reviewed with the patient and were negative, all pertinent findings are included in the HPI. PHYSICAL EXAMINATION: Vital signs reviewed. GENERAL: Well-appearing, well-nourished and in no acute distress. HEAD: Atraumatic, normocephalic. EYES: Pupils equal round extraocular movements intact, conjunctiva are normal. ENT: Nares patent NECK: Normal range of motion CV: Heart regular rate and rhythm LUNGS: No respiratory distress Musculoskeletal: Normal range of motion NEUROLOGICAL: Normal speech PSYCH: Normal mood, normal affect. MDM: Patient seen and examined for rapid initial assessment. Vital signs reviewed. A comprehensive ED assessment and evaluation of the patient, analysis of test results and completion of the medical decision making process will be conducted by additional ED providers. *Note is created using voice recognition software and may contain spelling, syntax or grammatical errors. TRAVEL OUTSIDE OF THE [place] IN LAST 30 DAYS: No - Related Data Allergies/Adverse Reactions: No Known Allergies Allergy (Verified 05/02/18 14:27) Past Medical History - Social History Frequency of alcohol use: None Drug Abuse: None - Past Medical History Cardiac Medical History: Reports: Hx Hypertension - not treated Denies: Hx Congestive Heart Failure Pulmonary Medical History: Reports: Hx Bronchitis Denies: Hx COPD Neurological Medical History: Denies: Hx Cerebrovascular Accident Endocrine Medical History: Denies: Hx Diabetes Mellitus Type 1, Hx Diabetes Mellitus Type 2 Renal/ Medical History: Denies: Hx Peritoneal Dialysis Musculoskeltal Medical History: Reports Hx Muscle Weakness Past Surgical History: Reports: Hx Neurologic Surgery - drainage SDH - Immunizations Hx Diphtheria, Pertussis, Tetanus Vaccination: No Physical Exam - Vital signs Vitals: Temp Pulse Resp BP Pulse Ox 97.7 F 58 L 20 161/83 H 97 05/02/18 15:11 05/02/18 15:11 05/02/18 15:11 05/02/18 15:11 05/02/18 15:11 Course - Vital Signs Vital signs: Temp Pulse Resp BP Pulse Ox 97.7 F 58 L 20 161/83 H 97 05/02/18 15:11 05/02/18 15:11 05/02/18 15:11 05/02/18 15:11 05/02/18 15:11
--- NOTE | 2018-05-02 17:36 | RADIOLOGY REPORT (SQ) ---
EXAM DESCRIPTION: CHEST SINGLE VIEW COMPLETED DATE/TIME: 05/02/2018 5:28 pm REASON FOR STUDY: weakness COMPARISON: 03/18/2017 EXAM PARAMETERS: NUMBER OF VIEWS: One view. TECHNIQUE: Single frontal radiographic view of the chest acquired. RADIATION DOSE: NA LIMITATIONS: None. FINDINGS: LUNGS AND PLEURA: No opacities, masses or pneumothorax. No pleural effusion. MEDIASTINUM AND HILAR STRUCTURES: No masses. Contour normal. HEART AND VASCULAR STRUCTURES: Heart normal in size. Normal vasculature. BONES: No acute findings. HARDWARE: None in the chest. OTHER: No other significant finding. IMPRESSION: NO ACUTE RADIOGRAPHIC FINDING IN THE CHEST. TECHNICAL DOCUMENTATION: JOB ID: [id number] [employer]- All Rights Reserved Reading location - IP/workstation name: [email or web address]
[2018-05-02 18:19] LABS: ABSOLUTE EOSINOPHILS # (AUTO) 0.2 10^3/uL (0.0-0.6); ABSOLUTE LYMPHOCYTES (AUTO) 1.3 10^3/uL (0.5-4.7); ABSOLUTE MONOCYTES (AUTO) 0.6 10^3/uL (0.1-1.4); BASOPHILS % (AUTO) 0.5 % (0-2); EOSINOPHILS % (AUTO) 3.3 % (0-6); HEMATOCRIT 40.1 % (37.9-51.0); HEMOGLOBIN 13.7 g/dL (13.5-17.0); LYMPHOCYTES % (AUTO) 24.9 % (13-45); MEAN CORPUSCULAR HEMOGLOBIN 27.8 pg (27.0-33.4); MEAN CORPUSCULAR HGB CONC 34.1 g/dL (32.0-36.0); MEAN CORPUSCULAR VOLUME 82 fl (80-97); MONOCYTES % (AUTO) 12.5 % (3-13); PLATELET COUNT 248 10^3/uL (150-450); RED BLOOD COUNT 4.92 10^6/uL (4.35-5.55); RED CELL DISTRIBUTION WIDTH 13.6 % (11.5-14.0); SEGMENTED NEUTROPHILS % (AUTO) 58.8 % (42-78); TOTAL CELLS COUNTED % (AUTO) 100 %; WHITE BLOOD COUNT 5.1 10^3/uL (4.0-10.5)
[2018-05-02 18:22] LABS: ALANINE AMINOTRANSFERASE 28 U/L (21-72); ALKALINE PHOSPHATASE 89 U/L (38-126); ANION GAP 7 (5-19); ASPARTATE AMINO TRANSFERASE 25 U/L (17-59); BILIRUBIN,DIRECT 0.1 mg/dL (0.0-0.4); BILIRUBIN,TOTAL 0.2 mg/dL (0.2-1.3); BLOOD UREA NITROGEN 25 mg/dL (7-20); CALCIUM 9.4 mg/dL (8.4-10.2); CARBON DIOXIDE 28 mmol/L (22-30); CHLORIDE 107 mmol/L (98-107); CREATINE KINASE 188 U/L (55-170); GLUCOSE 102 mg/dL (75-110); POTASSIUM 4.3 mmol/L (3.6-5.0); SODIUM 141.6 mmol/L (137-145); TOTAL PROTEIN 6.9 g/dL (6.3-8.2)
[2018-05-02] MEDS ORDERED: ASPIRIN 81 MG TABLET, CHEWABLE PO ONE (18:22)
--- NOTE | 2018-05-02 18:31 | EKG REPORT ---
SEVERITY:- ABNORMAL ECG - SINUS RHYTHM LEFT VENTRICULAR HYPERTROPHY : Confirmed by: Paul Carr MD 02-May-2018 18:30:17
--- NOTE | 2018-05-02 19:08 | ER Document Report ---
ED Dizziness/Weakness - General Chief Complaint: Dizziness Stated Complaint: DIZZY Time Seen by Provider: 05/02/18 19:08 Mode of Arrival: Ambulatory Information source: Patient Notes: HISTORY OF PRESENT ILLNESS: Patient is a 63-year-old male with a past medical history of several chronic health conditions including hypertension who presents with intermittent episodes of dizziness and "having no energy." Location: Global Onset: Sudden Provocation: None Quality: "Don't have no energy" Radiation: None Severity: Mild Timing: Intermittent Associated symptoms: Denies chest pain, shortness of breath, abdominal pain, nausea/vomiting REVIEW OF SYSTEMS: CONSTITUTIONAL : Denies fever or chills, no sweats. Denies recent illness. EENT: Denies eye, ear, throat, or mouth pain or symptoms. Denies nasal or sinus congestion. CARDIOVASCULAR: Denies chest pain. RESPIRATORY: Denies cough, cold, or chest congestion. Denies shortness of breath, difficulty breathing, or wheezing. GASTROINTESTINAL: Denies abdominal pain. Denies nausea, vomiting, or diarrhea. Denies constipation. GENITOURINARY: Denies difficulty urinating, painful urination, burning, frequency, or blood in urine. MUSCULOSKELETAL: Denies neck or back pain or joint pain or swelling. SKIN: Denies rash or skin lesions. HEMATOLOGIC : Denies easy bruising or bleeding. LYMPHATIC: Denies swollen, enlarged glands. NEUROLOGICAL: Denies altered mental status or loss of consciousness. Denies headache. Denies weakness or paralysis or loss of use of either side. Denies problems with gait or speech. Denies sensory or motor loss. PSYCHIATRIC: Denies anxiety or stress or depression. All other systems reviewed and negative. PHYSICAL EXAMINATION: GENERAL: Well-appearing, well-nourished and in no acute distress. HEAD: Atraumatic, normocephalic. No scalp deformity, depression, or crepitance. EYES: Pupils are 3 mm and equal/round/reactive to light, extraocular movements intact, sclera anicteric, conjunctiva are normal. ENT: Nares patent bilaterally, oropharynx clear without exudates or palatal petechia. Moist mucous membranes. No tonsil hypertrophy. NECK: Normal range of motion, supple without lymphadenopathy. LUNGS: Breath sounds present, equal, and clear to auscultation bilaterally. No wheezes, rales, or rhonchi. HEART: Regular rate and rhythm without murmurs, rubs, or gallops. 2+ peripheral pulses. Normal capillary refill. ABDOMEN: Soft, nontender, nondistended. Normoactive bowel sounds. No guarding, no rebound. No masses appreciated. BACK: Normal contour, no midline tenderness. Rectal exam deferred. GENITAL: Deferred. EXTREMITIES: Normal range of motion, no pitting or edema. No cyanosis. NEUROLOGICAL: No focal neurological deficits. Moves all extremities spontaneously and on command. PSYCH: Normal mood, normal affect. No suicidal thoughts/ideations. No homocidal thoughts/ideations. No hallucinations. SKIN: Warm, dry, normal turgor, no rashes or lesions noted. ASSESSMENT AND PLAN: This patient is a 63-year-old male who presents with general weakness and dizziness. Most likely represents viral syndrome versus UTI, cardiac is remote possibility but needs to be excluded. 1. Will obtain labs, urine, chest x-ray, EKG, cardiac enzymes, and CT head. 2. Will reassess after workup is complete. TRAVEL OUTSIDE OF THE [place] IN LAST 30 DAYS: No - Related Data Allergies/Adverse Reactions: No Known Allergies Allergy (Verified 05/02/18 14:27) Past Medical History - General Information source: Patient - Social History Smoking Status: Current Every Day Smoker Chew tobacco use (# tins/day): No Frequency of alcohol use: None Drug Abuse: None Lives with: Family Family History: Reviewed & Not Pertinent Patient has suicidal ideation: No Patient has homicidal ideation: No - Past Medical History Cardiac Medical History: Reports: Hx Hypertension - not treated Denies: Hx Congestive Heart Failure Pulmonary Medical History: Reports: Hx Bronchitis Denies: Hx COPD EENT Medical History: Reports: None Neurological Medical History: Reports: None. Denies: Hx Cerebrovascular Accident Endocrine Medical History: Reports: None. Denies: Hx Diabetes Mellitus Type 1, Hx Diabetes Mellitus Type 2 Renal/ Medical History: Reports: None. Denies: Hx Peritoneal Dialysis Malignancy Medical History: Reports None GI Medical History: Reports: None Musculoskeletal Medical History: Reports Hx Muscle Weakness Skin Medical History: Reports None Psychiatric Medical History: Reports: None Traumatic Medical History: Reports: None Infectious Medical History: Reports: None Past Surgical History: Reports: Hx Neurologic Surgery - drainage SDH - Immunizations Immunizations up to date: Yes Hx Diphtheria, Pertussis, Tetanus Vaccination: No Hx Pneumococcal Vaccination: 01/13/15 Physical Exam - Vital signs Vitals: Temp Pulse Resp BP Pulse Ox 97.7 F 58 L 20 161/83 H 97 05/02/18 15:11 05/02/18 15:11 05/02/18 15:11 05/02/18 15:11 05/02/18 15:11 Course - Re-evaluation Re-evalutation: 05/03/18 01:58 Blood work, including cardiac enzymes and urinalysis with drug screen, are normal. A head CT and chest x-ray are also both normal. Patient will be discharged home with return precautions and follow-up with his primary physician. Patient reports understanding and agreeing with the plan. - Vital Signs Vital signs: Temp Pulse Resp BP Pulse Ox 97.7 F 58 L 25 H 143/55 H 95 05/02/18 15:11 05/02/18 15:11 05/03/18 00:00 05/02/18 23:02 05/02/18 23:02 - Laboratory Result Diagrams: 05/02/18 17:45 05/02/18 17:45 Laboratory results interpreted by me: 05/02/18 05/03/18 17:45 00:25 BUN 25 H Creatine Kinase 188 H Ur Leukocyte Esterase TRACE H - Diagnostic Test Radiology reviewed: Image reviewed, Reports reviewed - EKG Interpretation by Me EKG shows normal: Sinus rhythm Rate: Normal Rhythm: NSR [place]/QRS: No: Right axis deviation, Left axis deviation, RBBB, LBBB, IVCD, LAHB/LAFB, LPHB/LPFB, Bifasicular block Voltage: No: Increased voltage, Consistant with LVH, Decreased voltage, Throughout, Limb leads P Waves: No: LSOANE, LAE, Absent, AV Dissociation, Other Heart block present: No: 1st Degree, Mobitz 1, Mobitz 2, CHB (3rd degree block) When compared to previous EKG there are: Previous EKG unavailable Discharge - Discharge Clinical Impression: Dizziness Condition: Good Disposition: HOME, SELF-CARE Instructions: Dizziness ([facility]) Additional Instructions: You have been evaluated in the Emergency Department for dizziness and weakness in your left leg. All of your blood work, including heart numbers and urine tests, were normal. A CT scan of your head and chest x-ray were also normal. Please follow-up with your primary physician as instructed in 1 week to be rechecked. Return to the Emergency Department if you experience confusion, disorientation, vision changes, difficulty walking, chest pain, difficulty breathing, or any other concerning symptoms. Print Language: Burkinan
[2018-05-03 00:56] LABS: APPEARANCE,URINE CLEAR; BILIRUBIN,URINE NEGATIVE (NEGATIVE); COLOR,URINE YELLOW; GLUCOSE, URINE NEGATIVE (NEGATIVE); KETONES,URINE NEGATIVE (NEGATIVE); LEUKOCYTE ESTERASE,URINE TRACE (NEGATIVE); NITRITE,URINE NEGATIVE (NEGATIVE); PROTEIN,URINE NEGATIVE (NEGATIVE); URINE SPECIFIC GRAVITY 1.014; UROBILINOGEN,URINE NEGATIVE mg/dL (<2.0)
--- NOTE | 2018-05-03 01:05 | RADIOLOGY REPORT (SQ) ---
EXAM DESCRIPTION: CT HEAD WITHOUT IV CONTRAST COMPLETED DATE/TME: 05/03/2018 00:08 CLINICAL HISTORY: 63 years, Male, Dizziness COMPARISON: April 19, 2017 Technique: Contiguous axial images of the brain were obtained without the administration of intravenous contrast. Coronal and sagittal reformats obtained and reviewed. This exam was performed according to our departmental dose-optimization program which includes use of Automated Exposure Control, adjustment of the mA and/or kV according to patient size and/or use of iterative reconstruction technique. Findings: Brain: Periventricular and deep white matter hypodensities, most commonly due to nonspecific white matter chronic microvascular ischemia.No hemorrhage. No territorial infarct. No mass effect. No herniation. Ventricles: Within normal limits for patient's age. Bones: No acute osseous abnormality. Multiple old kendell holes are noted. Paranasal sinuses: Unremarkable. Mastoid air cells: Unremarkable. Soft tissues: No acute abnormality. IMPRESSION: No acute intracranial abnormalities.
[2018-05-03 01:15] LABS: URINE AMPHETAMINES SCREEN NEGATIVE; URINE BARBITURATES SCREEN NEGATIVE; URINE BENZODIAZEPINES SCREEN NEGATIVE; URINE COCAINE SCREEN NEGATIVE; URINE MARIJUANA (THC) SCREEN NEGATIVE; URINE METHADONE SCREEN NEGATIVE; URINE PHENCYCLIDINE SCREEN NEGATIVE
[2018-05-03 02:18] VITALS: BP 165/72
== END 2018-05-03 02:18 | disposition home or self-care (01) ==
LOC: ER 14:22
DX: R42 Dizziness and giddiness (principal); R53.1 Weakness; I10 Essential (primary) hypertension; F17.200 Nicotine dependence, unspecified, uncomplicated
CPT/HCPCS: 93005; 99284; 96360; 96361; 36415; 80307 ×2; 82550; 84443; 85025; 80053; 81001; 84484; 71045; 70450; 93010; A9270; J7040

== ENCOUNTER 2018-05-03 16:48 | Inpatient (IN) | payer MEDICARE ==
--- NOTE | 2018-05-03 20:05 | ER Document Report ---
ED Medical Screen (RME) - General Chief Complaint: Dizziness Stated Complaint: DIZZINESS Time Seen by Provider: 05/03/18 19:50 Mode of Arrival: Wheelchair Information source: Patient Notes: Patient is a 63-year-old male who presents the emergency department with slurred speech and right sided weakness. Patient reports his symptoms started several days ago. He states he cannot walk. It is hard to understand patient as he is slurring his speech significantly. Patient was seen in this emergency department yesterday and had a full workup. I did speak with the physician who saw him last night to inquire what patient's presentation was at that time. We will proceed at this time with a head CT. Exam: Slurred speech. Alert, answering questions. Equal junior administrative assistant bilaterally. I have greeted and performed a rapid initial assessment of this patient. A comprehensive ED assessment and evaluation of the patient, analysis of test results and completion of the medical decision making process will be conducted by additional ED providers. Dictation of this chart was performed using voice recognition software; therefore, there may be some unintended grammatical errors. TRAVEL OUTSIDE OF THE [place] IN LAST 30 DAYS: No - Related Data Allergies/Adverse Reactions: No Known Allergies Allergy (Verified 05/03/18 16:51) Past Medical History - Social History Chew tobacco use (# tins/day): No Frequency of alcohol use: None Drug Abuse: None - Past Medical History Cardiac Medical History: Reports: Hx Hypertension - not treated Denies: Hx Congestive Heart Failure Pulmonary Medical History: Reports: Hx Bronchitis Denies: Hx COPD Neurological Medical History: Denies: Hx Cerebrovascular Accident Endocrine Medical History: Denies: Hx Diabetes Mellitus Type 1, Hx Diabetes Mellitus Type 2 Renal/ Medical History: Denies: Hx Peritoneal Dialysis Musculoskeltal Medical History: Reports Hx Muscle Weakness Past Surgical History: Reports: Hx Neurologic Surgery - drainage SDH - Immunizations Immunizations up to date: Yes Hx Diphtheria, Pertussis, Tetanus Vaccination: No Physical Exam - Vital signs Vitals: Temp Pulse Resp BP Pulse Ox 97.8 F 62 18 145/119 H 100 05/03/18 16:57 05/03/18 16:57 05/03/18 16:57 05/03/18 16:57 05/03/18 16:57 Course - Vital Signs Vital signs: Temp Pulse Resp BP Pulse Ox 97.8 F 62 18 145/119 H 100 05/03/18 16:57 05/03/18 19:55 05/03/18 19:55 05/03/18 19:55 05/03/18 19:55
--- NOTE | 2018-05-03 20:35 | RADIOLOGY REPORT (SQ) ---
EXAM DESCRIPTION: CT HEAD WITHOUT IV CONTRAST COMPLETED DATE/TME: 05/03/2018 20:03 CLINICAL HISTORY: 63 years, Male, SLURRED SPEECH COMPARISON: 04/19/2017 CT brain, CT brain from earlier on today's date TECHNIQUE: 196 Images stored on PACS. All CT scanners at this facility use dose modulation, iterative reconstruction, and/or weight based dosing when appropriate to reduce radiation dose to as low as reasonably achievable (ALARA). [facility]: Dose Right [facility]: CareDose [facility]: Dose Right [facility]: Teradose 4D [facility]: [employer] LIMITATIONS: None. FINDINGS: The globes are intact. Minor mucosal thickening of the ethmoid air cells and right maxillary sinus. No displaced or depressed skull fracture. Multiple kendell hole are present. Negative for intra or extra-axial hemorrhage. CT is limited for evaluation of acute infarct. No CT evidence for large or territorial acute infarct. No mass or midline shift. Mild age-appropriate atrophy with minor small vessel ischemic change. IMPRESSION: Negative for acute intracranial abnormality. Mild atrophy and small vessel ischemic change TECHNICAL DOCUMENTATION: Quality ID # [id number]: Final reports with documentation of one or more dose reduction techniques (e.g., Automated exposure control, adjustment of the mA and/or kV according to patient size, use of iterative reconstruction technique) copyright 2011 [employer]- All Rights Reserved
--- NOTE | 2018-05-04 00:19 | ER Document Report ---
ED General - General Chief Complaint: Dizziness Stated Complaint: DIZZINESS Time Seen by Provider: 05/03/18 19:50 Mode of Arrival: Wheelchair TRAVEL OUTSIDE OF THE [place] IN LAST 30 DAYS: No - HPI Notes: Patient is a 63-year-old male that presents to the emergency department for ief complaint of right-sided weakness and slurred speech. Patient states that he has had progressive weakness over the last few days. He believes Wednesday is when he started having a difficult time speaking. He states that his right arm and leg have also been weak for the last few days. He denies history of stroke in the past. He does have hypertension and has been noncompliant on medications. Patient is not under the care of a physician currently. Past Medical History: Hypertension Past Surgical History: Drainage of subdural hematoma Social History: Daily tobacco. Denies alcohol Family History: Reviewed and noncontributory for presenting illness Allergies: Reviewed, see documented allergy list. REVIEW OF SYSTEMS: CONSTITUTIONAL : No fever No chills No diaphoresis No recent illness EENT: No vision changes No congestion No sore throat CARDIOVASCULAR: No chest pain No palpitations RESPIRATORY: No shortness of breath No cough No difficulty breathing GASTROINTESTINAL: No abdominal pain No nausea No vomiting No diarrhea GENITOURINARY: No dysuria No hematuria No difficulty urinating MUSCULOSKELETAL: No back pain No leg pain No arm pain SKIN: No rashes No lesions LYMPHATIC: No swollen, enlarged glands. NEUROLOGICAL: No lightheadedness No headache weakness paresthesias Slurred speech PSYCHIATRIC: No anxiety No depression PHYSICAL EXAMINATION: Vital signs reviewed, nursing noted reviewed. GENERAL: Well-appearing, well-nourished and in no acute distress. HEAD: Atraumatic, normocephalic. EYES: Eyes appear normal, extraocular movements intact, sclera anicteric, conjunctiva are normal. ENT: nares patent, oropharynx clear without exudates. Moist mucous membranes. NECK: Normal range of motion, supple without lymphadenopathy LUNGS: Breath sounds clear to auscultation bilaterally and equal. No wheezes rales or rhonchi. HEART: Regular rate and rhythm without murmurs ABDOMEN: Soft, nontender, normoactive bowel sounds. No rebound, guarding, or rigidity. No masses appreciated. EXTREMITIES: Nontender, good range of motion, no pitting or edema. NEUROLOGICAL: NIH = 6, right upper and lower extremity weakness, right arm paresthesias, slurred speech PSYCH: Normal mood, normal affect. SKIN: Warm, Dry, normal turgor, no rashes or lesions noted on exposed skin - Related Data Allergies/Adverse Reactions: No Known Allergies Allergy (Verified 05/03/18 16:51) Past Medical History - General Information source: Patient - Social History Smoking Status: Current Every Day Smoker Chew tobacco use (# tins/day): No Frequency of alcohol use: None Drug Abuse: None Family History: Reviewed & Not Pertinent Patient has suicidal ideation: No Patient has homicidal ideation: No - Past Medical History Cardiac Medical History: Reports: Hx Hypertension - not treated Denies: Hx Congestive Heart Failure Pulmonary Medical History: Reports: Hx Bronchitis Denies: Hx COPD Neurological Medical History: Denies: Hx Cerebrovascular Accident Endocrine Medical History: Denies: Hx Diabetes Mellitus Type 1, Hx Diabetes Mellitus Type 2 Renal/ Medical History: Denies: Hx Peritoneal Dialysis Musculoskeletal Medical History: Reports Hx Muscle Weakness Past Surgical History: Reports: Hx Neurologic Surgery - drainage SDH - Immunizations Immunizations up to date: Yes Hx Diphtheria, Pertussis, Tetanus Vaccination: No Hx Pneumococcal Vaccination: 01/13/15 Physical Exam - Vital signs Vitals: Temp Pulse Resp BP Pulse Ox 97.8 F 62 18 145/119 H 100 05/03/18 16:57 05/03/18 16:57 05/03/18 16:57 05/03/18 16:57 05/03/18 16:57 Course - Re-evaluation Re-evalutation: 05/04/18 00:18 Vitals reviewed. Nursing notes reviewed. Patient symptoms started reportedly a few days ago. He was seen in the ED and on chart review had a normal workup yesterday. Patient has a history of subdural hematoma. His symptoms started greater than 4.5 hours ago when he is outside the window for TPA therefore it is not indicated. Repeat CT brain today is unchanged from yesterday. Plan to repeat blood work and admit to the hospital for stroke evaluation. Patient given aspirin in the ED. Head CT 05/03/18 20:03 IMPRESSION: Negative for acute intracranial abnormality. Mild atrophy and small vessel ischemic change TECHNICAL DOCUMENTATION: Quality ID # 436: Final reports with documentation of one or more dose reduction techniques (e.g., Automated exposure control, adjustment of the mA and/or kV according to patient size, use of iterative reconstruction technique) copyright 2010 [employer]- All Rights Reserved 05/04/18 01:39 Patient's EKG findings were discussed with Dr. Galvez who feels that this is LVH with strain and not acute STEMI. 05/04/18 02:29 Patient's lab work is unremarkable. His troponin is still negative. Patient passed swallow study. Patient will be admitted to the hospital for further management. 05/04/18 02:54 Patient's care discussed with Dr. Gamboa who accepted admission - Vital Signs Vital signs: Temp Pulse Resp BP Pulse Ox 97.8 F 76 22 H 147/83 H 98 05/03/18 16:57 05/04/18 02:36 05/04/18 02:36 05/04/18 02:36 05/04/18 02:36 - Laboratory Result Diagrams: 05/04/18 01:29 05/04/18 01:29 Laboratory results interpreted by me: 05/04/18 01:29 Chloride 110 H ALT 20 L - EKG Interpretation by Me Additional EKG results interpreted by me: 05/04/18 01:28 Interpreted by myself 0120: Normal sinus rhythm, rate 53, LVH, new T wave inversion in V6, again shown ST elevation V2-5 with J point transition Discharge - Discharge Clinical Impression: Right-sided muscle weakness, Right arm numbness, Slurred speech, Acute electrocardiogram changes Condition: Stable Disposition: ADMITTED INPATIENT Admitting Provider: Hospitalist Unit Admitted: Telemetry ED NIH Stroke Scale - NIH Stroke Scale *: 1. NIH scale should be completed with appropriate accompanying assessment tools. *: 2. The NIH should reflect what the patient is capable of doing and should not be coached by the clinician. 1a. Level of Consciousness: 0=Alert;keenly responsive -: 1=Drowsy -: 2=Obtunded -: 3=Coma/unresponsive or reflex to noxious stimuli. 1a. Responses: 0 1b. Orientation Questions: a. What month is it? -: b. How old are you? -: 0=Answers both questions correctly. -: 1=Answers one question correctly or patient is intubated or has orotracheal trauma. -: 2=Answers neither question correctly. 1b. Responses: 0 1c. Response to commands: a. Open and close eyes? -: b. Acid Plant Helper and release hand? -: Credit is given despite weakness. Demonstration of task is permitted. Substitute command if hands cannot be used. -: 0=Performs both tasks correctly -: 1=Performs one task correctly -: 2=Performs neither task correctly 1c. Responses: 0 2. Gaze: Establish eye contact and instruct patient to "Follow my finger" -: 0=Normal -: 1=Partial gaze palsy. Gaze is abnormal in one or both eyes, but where forced deviation or total gaze paresis is not present. -: 2=Forced deviation or total gaze paresis. 2. Responses: 0 3. Visual Lal: Sees fingers in all four quadrants. -: 0=No visual loss. -: 1=Partial hemianopsia. -: 2=Complete hemianopsia. -: 3=Bilateral hemianopsia (including Cortical blindness) 3. Responses: 0 4. Facial Movement: Instruct patient to: -: a. Show me your teeth -: b. Raise your eyebrows -: c. Close your eyes -: d. Smile -: 0=Normal symmetrical movement -: 1=Minor paralysis (flattened nasolabial fold, asymmetry on smiling). -: 2=Partial paralysis (total or near total paralysis of lower face). -: 3=Complete paralysis of upper and lower face 4. Responses: 0 5. Motor functions (left arm): Alternate sides and extend each arm with palms down (90 degrees if sitting or 45 degrees for supine). -: 0=No drift;limb holds for full 10 seconds. -: 1=Drift; limb holds but drifts down before full 10 seconds, but does not hit bed. -: 2=Some effort against gravity; limb cannot get to or maintain position. -: 3=No effort against gravity; limb falls. -: 4=No movement. -: UN=Amputation, joint fusion, explain in comments. 5. Responses (left arm): 0 5. Motor Functions (right arm): Alternate sides and extend each arm with palms down (90 degrees if sitting or 45 degrees for supine). -: 0=No drift;limb holds for full 10 seconds. -: 1=Drift; limb holds but drifts down before full 10 seconds, but does not hit bed. -: 2=Some effort against gravity; limb cannot get to or maintain position. -: 3=No effort against gravity; limb falls. -: 4=No movement. -: UN=Amputation, joint fusion, explain in comments. 5. Responses (right arm): 2 6. Motor Functions (left leg): With patient lying supine, alternate sides and extend each leg (30 degrees always while supine). -: 0=No drift, leg holds position for full 5 seconds -: 1=Drift; leg falls before full 5 seconds but does not hit bed. -: 2=Some effort against gravity, leg falls to bed but some effort against gravity. -: 3=No effort against gravity, leg falls to bed immediately. -: 4=No movement. -: UN=Amputation, joint fusion; explain in comments. 6. Responses (left leg): 0 6. Motor Functions (right leg): With patient lying supine, alternate sides and extend each leg (30 degrees always while supine). -: 0=No drift, leg holds position for full 5 seconds -: 1=Drift; leg falls before full 5 seconds but does not hit bed. -: 2=Some effort against gravity, leg falls to bed but some effort against gravity. -: 3=No effort against gravity, leg falls to bed immediately. -: 4=No movement. -: UN=Amputation, joint fusion; explain in comments. 6. Responses (right leg): 2 7. Limb Ataxia: With eyes open instruct patient to: -: a. "Touch your finger to your nose". -: b. "Touch your heel to your bowie" -: 0=Absent -: 1=Present in one limb. -: 2=Present in two limbs. -: UN=Amputation or joint fusion; explain in comments. 7. Responses: 0 8. Sensory: Test sensation using pinprick or noxious stimuli. Test as many body parts as possible. -: 0=Normal;no sensory loss -: 1=Mile to moderate sensory loss (patient feels pin prick but is less sharp on affected side). -: 2=Severe or total sensory loss. 8. Responses: 1 9. Best Language: Instruct patient to: -: a. "Describe what you see in this picture." -: b. "Name the items in this picture." -: c. "Read these sentences." -: 0=No aphasia, normal -: 1=Mild to moderate aphasia. -: 2=Severe aphasia -: 3=Mute, global aphasia, no usable speech or auditory comprehension. 9. Responses: 0 10. Articulation, Dysarthia: Instruct patient to: -: "Read these words" or "Repeat these words" -: 0=Normal -: 1=Mild to moderate; patient may slur some words but can be understood without difficulty. -: 2=Severe; patients speech so slurred as to be unintelligible in the absence of dysphasia. -: UN=Intubated or other physical barrier, explain in comments. 10. Responses: 1 11. Extinction or inattention: 0=No abnormality -: 1= Visual, tactile, auditory, spatial, or personal inattention or extinction to bilateral simulation in one or the sensory modalities. -: 2=Profound marty-inattention or marty-inattention to more than one modality; does not recognize own hand. 11. Responses: 0 Total Score: 6
--- NOTE | 2018-05-04 00:54 | RADIOLOGY REPORT (SQ) ---
EXAM DESCRIPTION: XR CHEST 1 VIEW COMPLETED DATE/TME: 05/04/2018 00:04 CLINICAL HISTORY: 63 years, Male, slurred speech Comparison: May 02, 2017 5:37 PM FINDINGS: No focal lung consolidation. No pleural effusion. No pneumothorax. Cardiac and mediastinal silhouette is unremarkable. No acute osseous abnormality. Soft tissues are unremarkable. IMPRESSION: No acute findings. No focal lung consolidation.
[2018-05-04 01:41] LABS: ABSOLUTE EOSINOPHILS # (AUTO) 0.1 10^3/uL (0.0-0.6); ABSOLUTE LYMPHOCYTES (AUTO) 1.4 10^3/uL (0.5-4.7); ABSOLUTE MONOCYTES (AUTO) 0.5 10^3/uL (0.1-1.4); ABSOLUTE NEUT (AUTO) 3.1 10^3/uL (1.7-8.2); BASOPHILS % (AUTO) 0.8 % (0-2); EOSINOPHILS % (AUTO) 2.3 % (0-6); HEMATOCRIT 40.1 % (37.9-51.0); HEMOGLOBIN 13.6 g/dL (13.5-17.0); LYMPHOCYTES % (AUTO) 26.6 % (13-45); MEAN CORPUSCULAR HEMOGLOBIN 27.5 pg (27.0-33.4); MEAN CORPUSCULAR HGB CONC 33.9 g/dL (32.0-36.0); MEAN CORPUSCULAR VOLUME 81 fl (80-97); MONOCYTES % (AUTO) 10.1 % (3-13); PLATELET COUNT 228 10^3/uL (150-450); RED BLOOD COUNT 4.96 10^6/uL (4.35-5.55); RED CELL DISTRIBUTION WIDTH 13.4 % (11.5-14.0); SEGMENTED NEUTROPHILS % (AUTO) 60.2 % (42-78); TOTAL CELLS COUNTED % (AUTO) 100 %; WHITE BLOOD COUNT 5.1 10^3/uL (4.0-10.5)
[2018-05-04] MEDS ORDERED: ASPIRIN 81 MG TABLET, CHEWABLE PO ONE ×2 (01:48→02:02)
[2018-05-04 01:57] LABS: ALANINE AMINOTRANSFERASE 20 U/L (21-72); ALBUMIN 3.9 g/dL (3.5-5.0); ALKALINE PHOSPHATASE 80 U/L (38-126); ANION GAP 7 (5-19); ASPARTATE AMINO TRANSFERASE 24 U/L (17-59); BILIRUBIN,DIRECT 0.2 mg/dL (0.0-0.4); BILIRUBIN,TOTAL 0.5 mg/dL (0.2-1.3); BLOOD UREA NITROGEN 20 mg/dL (7-20); CALCIUM 9.1 mg/dL (8.4-10.2); CARBON DIOXIDE 27 mmol/L (22-30); CHLORIDE 110 mmol/L (98-107); GLUCOSE 92 mg/dL (75-110); POTASSIUM 3.9 mmol/L (3.6-5.0); SODIUM 143.5 mmol/L (137-145); TOTAL PROTEIN 6.8 g/dL (6.3-8.2)
[2018-05-04 01:58] LABS: PROTHROMBIN TIME 14.3 SEC (11.4-15.4)
[2018-05-04 01:59] LABS: INTERNATIONAL RATION (INR) 1.06; PARTIAL THROMBOPLASTIN TIME 32.3 SEC (23.5-35.8)
[2018-05-04] MEDS ORDERED: ASPIRIN 600 MG SUPP, RECTAL PR ONE (01:59)
[2018-05-04] MEDS ORDERED: ONDANSETRON HCL INJ/PF 4 MG/2 ML SDV IV PRN (02:57)
[2018-05-04] MEDS ORDERED: DOCUSATE SODIUM 100 MG CAPSULE PO PRN (02:57)
[2018-05-04] MEDS ORDERED: LABETALOL HCL INJ 20 MG/4 ML DISP.SYRIN IV PRN (02:57)
[2018-05-04] MEDS ORDERED: ONDANSETRON 4 MG TAB.RAPDIS PO PRN (02:57)
[2018-05-04] MEDS ORDERED: ACETAMINOPHEN 325 MG TABLET PO PRN (02:57)
[2018-05-04] MEDS ORDERED: MAGNESIUM HYDROXIDE SUSP 30 ML UDCUP PO PRN (02:57)
[2018-05-04] MEDS ORDERED: TRAMADOL HCL 50 MG TABLET PO PRN (02:57)
[2018-05-04] MEDS ORDERED: NALBUPHINE HCL INJ 10 MG/1 ML AMPULE IV PRN (03:10)
[2018-05-04] MEDS ORDERED: MAG HYDROX/AL HYDROX/SIMETH SUSP 30 ML UDCUP PO PRN (03:10)
[2018-05-04] MEDS ORDERED: ALBUTEROL SULFATE 0.083% NEB 2.5 MG/3 ML AMPUL NEB PRN (03:10)
--- NOTE | 2018-05-04 06:50 | PDOC H&P ---
History of Present Illness Admission Date/PCP: 05/04/2018 No PCP Patient complains of: Right-sided weakness with slurred speech History of Present Illness: GORDON HERNANDEZ is a 63 year old male who presented to the emergency room with a 3-day history of right-sided weakness and slurring of speech. He indicates that his problem began when he woke 3 days ago and noticed that his right side d id not want to move well and was very weak and he was unable to stand up or walk. He also noticed that he had slurred speech when he tried to call for help. His symptoms have persisted unchanged since onset. He rates his weakness as severe. He denies accompanying symptoms: specifically denying chest pain, palpitations, syncope and seizure activity. He admits to a history of hypertension and further admits that he has not taken medications for quite some time. He denies prior similar episodes and has not identified any aggravating or ameliorating factors for his current weakness or slurring of speech. In the emergency room he was found to have a negative initial evaluation on CT scan and no significant abnormalities on his laboratory workup. Patient was subsequently admitted to the [facility] for further evaluation and treatment. Past Medical History Cardiac Medical History: Reports: Hypertension - not treated Denies: Atrial Fibrillation, Congestive Heart Failure, Coronary Artery Disease Pulmonary Medical History: Reports: Bronchitis Denies: Asthma, Chronic Obstructive Pulmonary Disease (COPD) EENT Medical History: Reports: None Neurological Medical History: Denies: Hemorrhagic CVA, Ischemic CVA, Seizures Endocrine Medical History: Denies: Diabetes Mellitus Type 1, Diabetes Mellitus Type 2, Hyperthyroidism, Hypothyroidism Renal/ Medical History: Denies: Chronic Kidney Disease, Nephrolithiasis Malignancy Medical History: Reports: None GI Medical History: Denies: Cirrhosis, Hepatitis Musculoskeltal Medical History: Denies: Arthritis, Gout Skin Medical History: Denies: Eczema, Psoriasis Psychiatric Medical History: Reports: Tobacco Dependency Denies: Alcohol Dependency, Substance Abuse Traumatic Medical History: Reports: None Hematology: Denies: Anemia, Bleeding Tendencies Infectious Medical History: Reports: None Past Surgical History Past Surgical History: Reports: None Social History Information Source: Patient Lives with: Alone Smoking Status: Current Every Day Smoker Frequency of Alcohol Use: Occasional Hx Recreational Drug Use: No Drugs: None Hx Prescription Drug Abuse: No - Advance Directive Resuscitation Status: Full Code Surrogate healthcare decision maker:: His friend Sheron Peguero Family History Family History: Malignancy. denies: CAD, DM, Hypertension Parental Family History Reviewed: Yes Children Family History Reviewed: No Sibling(s) Family History Reviewed.: Yes Medication/Allergy Home Medications: Cyclobenzaprine HCl [Flexeril 5 mg Tablet] 5 mg PO TID #15 tablet 11/22/15 Hydrocodone/Acetaminophen [Vicodin 5-300 mg Tablet] 0.5 - 2 tab PO ASDIR PRN #10 tab 11/22/15 Hydrocodone/Acetaminophen [Liberty 5-325 mg Tablet] 2 tab PO Q6H PRN #15 tab 12/29/16 Walker [Folding Walker] 1 each MC ASDIR PRN #1 each 12/29/16 Cephalexin Monohydrate [Keflex 500 mg Capsule] 500 mg PO BID #20 capsule 01/03/17 Sulfamethoxazole/Trimethoprim [Bactrim Ds Tablet] 1 each PO BID #20 tablet 01/03/17 Silver Sulfadiazine [Silvadene 1% Cream 400 gm] 1 applic TP BID 14 Days #1 jar 01/19/17 Albuterol Sulfate [Proair HFA Inhalation Aerosol 8.5 gm MDI] 2 puff IH Q3HP PRN #1 hfa.aer.ad 03/18/17 Amlodipine Besylate [Norvasc 10 mg Tablet] 10 mg PO DAILY #30 tablet 03/24/18 Furosemide [Lasix 20 mg Tablet] 20 mg PO QAM #30 tablet 03/24/18 Hydrochlorothiazide [Hydrodiuril 25 mg Tablet] 25 mg PO QAM #30 tablet 03/24/18 Potassium Chloride 10 meq PO DAILY #30 capsule.er 03/24/18 Allergies/Adverse Reactions: No Known Allergies Allergy (Verified 05/03/18 16:51) Review of Systems Constitutional: PRESENT: as per HPI, weakness. ABSENT: chills, fever(s), headache(s) Eyes: PRESENT: visual disturbances - Patient reports feeling like his vision might be a little more blurry than usual over the last several days.. ABSENT: o ther Ears: ABSENT: hearing changes, other Nose, Mouth, and Throat: ABSENT: mouth pain, sore throat Cardiovascular: ABSENT: chest pain, dyspnea on exertion, orthropnea, palpitations Respiratory: ABSENT: cough, dyspnea Gastrointestinal: ABSENT: abdominal pain, constipation, diarrhea, nausea, vomiting Genitourinary: ABSENT: dysuria, hematuria Musculoskeletal: ABSENT: deformity, joint swelling Integumentary: ABSENT: pruritus, rash Neurological: PRESENT: as per HPI, abnormal gait, abnormal speech, focal weakness. ABSENT: confusion, convulsions, memory loss, syncope Psychiatric: ABSENT: anxiety, depression Endocrine: ABSENT: cold intolerance, heat intolerance Hematologic/Lymphatic: ABSENT: easy bleeding, easy bruising Physical Exam Vital Signs: Temp Pulse Resp BP Pulse Ox 97.8 F 76 22 H 147/83 H 98 05/03/18 16:57 05/04/18 02:36 05/04/18 02:36 05/04/18 02:36 05/04/18 02:36 Intake & Output 05/02/18 05/03/18 05/04/18 23:59 23:59 23:59 Weight 91 kg General appearance: PRESENT: no acute distress, cooperative Head exam: PRESENT: atraumatic, normocephalic Eye exam: PRESENT: conjunctiva pink, EOMI. ABSENT: scleral icterus Ear exam: PRESENT: normal external ear exam. ABSENT: bleeding, drainage Mouth exam: PRESENT: dry mucosa, neck supple Neck exam: ABSENT: thyromegaly, tracheal deviation Respiratory exam: PRESENT: clear to auscultation snow, symmetrical, unlabored Cardiovascular exam: PRESENT: clicks, gallop, RRR, rubs Pulses: PRESENT: normal radial pulses, normal dorsalis pedis pul Vascular exam: PRESENT: normal capillary refill. ABSENT: pallor GI/Abdominal exam: PRESENT: normal bowel sounds, soft. ABSENT: tenderness Rectal exam: PRESENT: deferred Extremities exam: ABSENT: joint swelling, pedal edema Musculoskeletal exam: ABSENT: deformity, dislocation, full ROM - Weakness of the right upper and lower extremities noted bilaterally Neurological exam: PRESENT: alert, awake, oriented to person, oriented to place, oriented to time, oriented to situation, motor sensory deficit - Right upper extremity and lower extremity weakness present bilaterally. ABSENT: CN II-XII grossly intact - Right facial nerve distribution (central seventh) muscle weakness is noted. Psychiatric exam: PRESENT: appropriate affect, normal mood Skin exam: PRESENT: dry, intact, warm. ABSENT: jaundice, rash, urticaria Results Laboratory Results: 05/04/18 01:29 05/04/18 01:29 05/04/18 05/04/18 01:29 01:29 WBC 5.1 RBC 4.96 Hgb 13.6 Hct 40.1 MCV 81 MCH 27.5 MCHC 33.9 RDW 13.4 Plt Count 228 Seg Neutrophils % 60.2 Lymphocytes % 26.6 Monocytes % 10.1 Eosinophils % 2.3 Basophils % 0.8 Absolute Neutrophils 3.1 Absolute Lymphocytes 1.4 Absolute Monocytes 0.5 Absolute Eosinophils 0.1 Absolute Basophils 0.0 Sodium 143.5 Potassium 3.9 Chloride 110 H Carbon Dioxide 27 Anion Gap 7 BUN 20 Creatinine 0.87 Est GFR ( Amer) > 60 Est GFR (Non-Af Amer) > 60 Glucose 92 Calcium 9.1 Total Bilirubin 0.5 AST 24 ALT 20 L Alkaline Phosphatase 80 Total Protein 6.8 Albumin 3.9 05/04/18 01:29 Troponin I 0.014 Impressions: Head CT 05/03/18 20:03 IMPRESSION: Negative for acute intracranial abnormality. Mild atrophy and small vessel ischemic change TECHNICAL DOCUMENTATION: Quality ID # 436: Final reports with documentation of one or more dose reduction techniques (e.g., Automated exposure control, adjustment of the mA and/or kV according to patient size, use of iterative reconstruction technique) copyright 2011 [employer]- All Rights Reserved Chest X-Ray 05/04/18 00:04 IMPRESSION: No acute findings. No focal lung consolidation. Assessment & Plan - Diagnosis (1) Acute ischemic cerebrovascular accident (CVA) involving right middle cerebral artery territory Is this a current diagnosis for this admission?: Yes Plan: Patient be treated with the stroke protocol on [facility]. He will undergo an MRI and an MRA as well as a carotid Doppler study and a echocardiogram. He will utilize Nubain 10 mg IV every 3 hours as needed for pain. (2) HTN (hypertension), malignant Is this a current diagnosis for this admission?: Yes Plan: Patient be treated with antihypertensive therapy initiated in the emergency room and continued utilizing IV hydralazine and or labetalol as needed to control his blood pressure. An ongoing stable dose of antihypertensive will be chosen by his hospitalist later today and therapy will be continued thereafter. (3) Medical non-compliance Is this a current diagnosis for this admission?: Yes Plan: Patient is encouraged to comply with the medical regiment and will be strongly advised that his regimen be kept to a very simple fewest number of pills taken the fewest times daily and being of the lowest possible cost. - Time Time Spent: 30 to 50 Minutes Critical Time spent with patient: Less than 15 minutes Smoking Cessation Education: 3 to 10 minutes Medications reviewed and adjusted accordingly: No - no meds Anticipated discharge: Home with Homehealth, SNF, Acute Rehab - Inpatient Certification Based on my medical assessment, after consideration of the patient's comorbidities, presenting symptoms, or acuity I expect that the services needed warrant INPATIENT care.: Yes I certify that my determination is in accordance with my understanding of Medicare's requirements for reasonable and necessary INPATIENT services [42 CFR 412.3e].: Yes Medical Necessity: Need Close Monitoring Due to Risk of Patient Decompensation, Need For Continuous Telemetry Monitoring, Need for Neurological Checks, Risk of Complication if Not Cared For in Hospital
--- NOTE | 2018-05-04 07:51 | EKG REPORT ---
SEVERITY:- ABNORMAL ECG - SINUS RHYTHM LEFT VENTRICULAR HYPERTROPHY ST ELEVATIONS ANTERIOR LEADS UNCHANGED FROM 2013 EKGS. : Confirmed by: Paul Carr MD 04-May-2018 07:50:12
[2018-05-04 07:53] LABS: CREATINE KINASE MB 1.48 ng/mL (<4.55); TROPONIN I 0.018 ng/mL
[2018-05-04] MEDS: LEVALBUTEROL HCL NEB 1.25 MG/3 ML AMPUL NEB SCH ×2 (07:53→17:06)
[2018-05-04] MEDS: BUDESONIDE NEB 0.5 MG/2 ML AMPUL NEB SCH ×2 (07:53→21:04)
[2018-05-04] MEDS: IPRATROPIUM BROMIDE 0.02% NEB 0.5 MG/2.5 ML AMPUL NEB SCH ×2 (07:53→17:06)
[2018-05-04] MEDS: FONDAPARINUX SODIUM INJ 2.5 MG/0.5 ML DISP.SYRIN SUBCUT SCH ×2 (08:45→09:21)
[2018-05-04 08:50] LABS: APPEARANCE,URINE CLEAR; BILIRUBIN,URINE NEGATIVE (NEGATIVE); COLOR,URINE YELLOW; GLUCOSE, URINE NEGATIVE (NEGATIVE); KETONES,URINE NEGATIVE (NEGATIVE); LEUKOCYTE ESTERASE,URINE SMALL (NEGATIVE); NITRITE,URINE NEGATIVE (NEGATIVE); PROTEIN,URINE NEGATIVE (NEGATIVE); URINE SPECIFIC GRAVITY 1.018; UROBILINOGEN,URINE NEGATIVE mg/dL (<2.0)
[2018-05-04] MEDS: ATENOLOL 50 MG TABLET PO SCH (09:18)
[2018-05-04] MEDS: CLOPIDOGREL BISULFATE 75 MG TABLET PO SCH (09:18)
[2018-05-04] MEDS: NICOTINE 21 MG/24 HR PATCH.TD24 TD PRN (09:18)
--- NOTE | 2018-05-04 13:36 | RADIOLOGY REPORT (SQ) ---
EXAM DESCRIPTION: CAROTID DOPPLER COMPLETED DATE/TIME: 05/04/2018 1:27 pm REASON FOR STUDY: Acute CVA COMPARISON: None. TECHNIQUE: Grayscale ultrasound, Doppler velocity and spectra, and color Doppler images acquired of the extra-cranial carotid and vertebral arteries. Images stored on PACS. LIMITATIONS: None. FINDINGS: RIGHT CAROTID CCA Velocities: Within normal limits. ICA Velocities Peak systolic 0.66 m/s. End diastolic 0.12 m/s. Proximal ICA/CCA peak systolic ratio 0.9. Mild partially calcified plaque in the bulb. LEFT CAROTID CCA Velocities: Within normal limits. ICA Velocities Peak systolic 1.11 m/s. End diastolic 0.31 m/s. Proximal ICA/CCA peak systolic ratio 1.2. Mild homogeneous plaque in the distal CCA. VERTEBRAL ARTERIES: Antegrade flow. Normal waveforms. SUBCLAVIAN ARTERIES: Not imaged. OTHER: No other significant finding. IMPRESSION: NO HEMODYNAMICALLY SIGNIFICANT STENOSIS. COMMENT: Quality ID #[id number]: Velocity criteria are extrapolated from the diameter data as defined by t he Society of Radiologists in Ultrasound Consensus Conference. Radiology 2003: 229; 340-346. TECHNICAL DOCUMENTATION: JOB ID: [id number] [employer]- All Rights Reserved Reading location - IP[facility]workstation name: [email or web address]
[2018-05-04 15:19] LABS: CREATINE KINASE MB 1.42 ng/mL (<4.55); TROPONIN I 0.016 ng/mL
--- NOTE | 2018-05-04 16:48 | XCELERA REPORT ---
[address] [address] Transthoracic Echocardiogram Report Name: GORDON HERNANDEZ Age: 63 yrs Gender: Male : 1955 Patient Status: Inpatient Patient Location: [place] [address]^A Study Date: 05/04/2018 09:19 AM Height: 68 in Weight: 200 lb BSA: 2.0 m2 Procedure: A two-dimensional transthoracic echocardiogram with color flow and Doppler was performed. Study Quality: Fair. Reason For Study: acute cva History: CVA. Ordering Physician: DUGLAS SUBRAMANIAN Performed By: Esthela Saucedo Interpretation Summary There is no obvious cardiac source of embolus noted on this transthoracic echocardiogram. Follow-up with a OLESYA is suggested if cardiac source is still suspected. The left ventricle is normal in size. There is moderate to severe concentric left ventricular hypertrophy. LV EF is > than 60% Left ventricular systolic function is normal. Doppler measurements suggest impaired left ventricular relaxation, which is associated with grade I/IV or mild diastolic dysfunction The left ventricular wall motion is normal. There is no thrombus. There is no ventricular septal defect visualized. The right ventricle is grossly normal size. The right ventricular systolic function is normal. The right atrium is normal. The left atrial size is normal. The interatrial septum is intact with no evidence for an atrial septal defect. There is no Doppler evidence for an interatrial shunt There is no evidence of mitral valve prolapse. There is no vegetation seen on the mitral valve. There is no mitral valve stenosis. There is no mitral regurgitation noted. There is no aortic valvular vegetation. There is mild aortic stenosis There is a peak gradient of 19 mm of Hg. No hemodynamically significant valvular aortic stenosis. There is no LVOT obstruction. No aortic regurgitation is present. There is no tricuspid stenosis. There is a trace amount of tricuspid regurgitation Unable to calculate RVSP due lack of TR jet. There is no pulmonic valvular stenosis. There is a trace amount of pulmonic regurgitation The aortic root is normal size. The inferior vena cava appeared normal and decreased > 50% with respiration (RAP 5-10 mmHg) There is no pericardial effusion. There is no obvious cardiac source of embolus noted on this transthoracic echocardiogram. Follow-up with a OLESYA is suggested if cardiac source is still suspected MMode/2D Measurements & Calculations RVDd: 3.2 cm LVIDd: 5.1 cm FS: 30.4 % Ao root diam: 3.4 cm IVSd: 1.7 cm LVIDs: 3.5 cm EDV(Teich): LVPWd: 1.7 cm 121.6 ml Ao root area: ESV(Teich): 8.8 cm2 51.6 ml LA dimension: EF(Teich): 57.5 % 3.8 cm LVLd ap4: 8.2 cm SV(MOD-sp4): EDV(MOD-sp4): 63.0 ml 110.0 ml LVLs ap4: 6.7 cm ESV(MOD-sp4): 47.0 ml EF(MOD-sp4): 57.3 % Doppler Measurements & Calculations MV E max bruce: MV P1/2t max bruce: Ao V2 max: LV V1 max P.1 cm/sec 71.6 cm/sec 219.9 cm/sec 5.3 mmHg MV A max bruce: MV P1/2t: 85.7 msec Ao max PG: LV V1 max: 76.0 cm/sec MVA(P1/2t): 2.6 cm2 19.3 mmHg 115.5 cm/sec MV E/A: 0.94 MV dec slope: 244.5 cm/sec2 MV dec time: 0.29 sec PA V2 max: MV P1/2t-pr_phl: 92.8 cm/sec 85.7 msec PA max P.4 mmHg Left Ventricle The left ventricle is normal in size. There is moderate to severe concentric left ventricular hypertrophy. LV EF is > than 60%. Left ventricular systolic function is normal. Doppler measurements suggest impaired left ventricular relaxation, which is associated with grade I/IV or mild diastolic dysfunction. The left ventricular wall motion is normal. There is no thrombus. There is no ventricular septal defect visualized. Right Ventricle The right ventricle is grossly normal size. The right ventricle is not well visualized secondary to technical limitations. The right ventricular systolic function is normal. Atria The right atrium is normal. The left atrial size is normal. The interatrial septum is intact with no evidence for an atrial septal defect. There is no Doppler evidence for an interatrial shunt. Mitral Valve There is no evidence of mitral valve prolapse. There is no vegetation seen on the mitral valve. There is no mitral valve stenosis. There is no mitral regurgitation noted. Aortic Valve There is no aortic valvular vegetation. There is mild aortic stenosis. There is a peak gradient of 19 mm of Hg. No hemodynamically significant valvular aortic stenosis. There is no LVOT obstruction. No aortic regurgitation is present. Tricuspid Valve There is no tricuspid stenosis. There is a trace amount of tricuspid regurgitation. Unable to calculate RVSP due lack of TR jet. Pulmonic Valve There is no pulmonic valvular stenosis. There is a trace amount of pulmonic regurgitation. Great Vessels The aortic root is normal size. The inferior vena cava appeared normal and decreased > 50% with respiration (RAP 5-10 mmHg). Effusions There is no pericardial effusion. : DUGLAS SUBRAMANIAN Lakshmi
[2018-05-04 20:48] LABS: CREATINE KINASE MB 1.51 ng/mL (<4.55); TROPONIN I 0.021 ng/mL
--- NOTE | 2018-05-04 22:28 | RADIOLOGY REPORT (SQ) ---
EXAM DESCRIPTION: MR BRAIN ANGIOGRAPHY WITHOUT IV CONTRAST COMPLETED DATE/TME: 05/04/2018 03:05 CLINICAL HISTORY: 63 years, Male, Acute cva COMPARISON: CT brain 05/03/2018 TECHNIQUE: 359 Images stored on PACS.Axial 2-D MRA images of the brain were obtained with 3-D [id number] reconstructions. LIMITATIONS: None. FINDINGS: The vertebral arteries appear unremarkable.. Negative for basilar tip aneurysm. The vertebral arteries appear codominant. However, a somewhat attenuated appearance to the left anterior inferior cerebellar and superior cerebellar artery is suggested concerning for slow flow and/or partial occlusion. The petrous portions of the bilateral internal carotid arteries are widely patent. Remaining portions of the internal carotid arteries show at least mild to moderate atheromatous changes of the cavernous and supraclinoid right ICA but are otherwise patent. 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 No MRA evidence for vascular encasement, or displacement. No MRA evidence for aneurysm or arteriovenous malformation. IMPRESSION: Attenuated appearance to the left superior cerebellar artery, and left anterior inferior cerebellar artery, which could reflect slow flow and/or partial occlusion. No other MRA evidence for vascular stenosis. At least mild to moderate atheromatous changes of the right cavernous and supraclinoid ICA. copyright 2010 [employer]- All Rights Reserved
--- NOTE | 2018-05-04 22:34 | RADIOLOGY REPORT (SQ) ---
EXAM DESCRIPTION: MR BRAIN WITHOUT IV CONTRAST COMPLETED DATE/TME: 05/04/2018 00:00 CLINICAL HISTORY: 63 years, Male, acute left hemisphere cva COMPARISON: CT brain 05/03/2018 TECHNIQUE: 273 Images stored on PACS. LIMITATIONS: None. FINDINGS: Sagittal midline anatomic structures demonstrate an unremarkable appearance to the pituitary and suprasellar regions. The globes are intact. The coastal thickening of the ethmoid air cells and right maxillary sinus. Normal flow void in visualized intracranial vessels. The visualized cranial nerve complex sees are unremarkable. There is no intra or extra-axial hemorrhage. Diffusion-weighted sequences demonstrates an approximately 1.6 x 1.0 cm area of diffusion restriction of the left jignesh. This shows low signal on ADC map consistent with acute pontine infarct. No other areas of acute infarct. No mass or midline shift. Diffuse atrophy. Areas of increased FLAIR/T2 white matter signal in the periventricular and subcortical regions, consistent with sequelae of small vessel ischemic change. Multiple kendell hole defects in the frontoparietal regions bilaterally. IMPRESSION: Acute left pontine infarct. Diffuse atrophy with small vessel ischemic change. Minor mucosal thickening of the right maxillary sinus and ethmoid air cells. copyright 2010 [employer]- All Rights Reserved
[2018-05-05] MEDS: LEVALBUTEROL HCL NEB 1.25 MG/3 ML AMPUL NEB SCH ×3 (00:07→16:24)
[2018-05-05] MEDS: IPRATROPIUM BROMIDE 0.02% NEB 0.5 MG/2.5 ML AMPUL NEB SCH ×3 (00:07→16:24)
[2018-05-05 06:19] LABS: HEMATOCRIT 39.1 % (37.9-51.0); HEMOGLOBIN 13.5 g/dL (13.5-17.0); MEAN CORPUSCULAR HEMOGLOBIN 27.7 pg (27.0-33.4); MEAN CORPUSCULAR HGB CONC 34.4 g/dL (32.0-36.0); MEAN CORPUSCULAR VOLUME 81 fl (80-97); PLATELET COUNT 228 10^3/uL (150-450); RED BLOOD COUNT 4.85 10^6/uL (4.35-5.55); RED CELL DISTRIBUTION WIDTH 13.3 % (11.5-14.0); WHITE BLOOD COUNT 4.6 10^3/uL (4.0-10.5)
[2018-05-05 06:40] LABS: ANION GAP 9 (5-19); BLOOD UREA NITROGEN 19 mg/dL (7-20); CARBON DIOXIDE 24 mmol/L (22-30); CHLORIDE 110 mmol/L (98-107); CHOLESTEROL 139.65 mg/dL (0-200); GLUCOSE 95 mg/dL (75-110); POTASSIUM 4.2 mmol/L (3.6-5.0); SODIUM 142.7 mmol/L (137-145); TRIGLYCERIDES 48 mg/dL (<150)
[2018-05-05 06:51] LABS: DIRECT LDL 93 mg/dL (<100)
[2018-05-05] MEDS: BUDESONIDE NEB 0.5 MG/2 ML AMPUL NEB SCH ×2 (07:39→20:28)
[2018-05-05] MEDS: CLOPIDOGREL BISULFATE 75 MG TABLET PO SCH (09:50)
[2018-05-05] MEDS: ATENOLOL 50 MG TABLET PO SCH (09:50)
[2018-05-05] MEDS: FONDAPARINUX SODIUM INJ 2.5 MG/0.5 ML DISP.SYRIN SUBCUT SCH (09:50)
[2018-05-05] MEDS: NICOTINE 21 MG/24 HR PATCH.TD24 TD PRN (14:16)
--- NOTE | 2018-05-05 16:47 | PDOC PROGRESS REPORT ---
Subjective Progress Note for:: 05/05/18 Subjective:: No acute events overnight. MRI brain shows left pontine infarct, diffuse atrophy and small vessel ischemic changes, Doppler no hemodynamically significant stenosis, 2D echo left ventricular ejection fraction more than 60%, mild diastolic dysfunction, no thrombus. On my encounter patient is alert and oriented with severe dysarthria and right- sided weakness. Patient living at home with his sister and does not work at this point. Denies any fever, chills, nausea, vomiting, diarrhea, constipation or any urinary symptoms. Received PT OT and recommendation is to discharge to SNF rehab. Patient received ST and recommendation is pain liquids with regular diet. Reason For Visit: ACUTE LEFT HEMISPHERE ISCHEMIC CVA Physical Exam Vital Signs: Temp Pulse Resp BP Pulse Ox 98.0 F 54 L 16 127/75 H 98 05/05/18 10:51 05/05/18 16:00 05/05/18 16:00 05/05/18 16:00 05/05/18 16:00 Intake & Output 05/04/18 05/05/18 05/06/18 06:59 06:59 06:59 Intake Total 237 592 Output Total 350 600 Balance -113 -8 Weight 91 kg 88.1 kg General appearance: PRESENT: no acute distress, well-developed, well-nourished Head exam: PRESENT: atraumatic, normocephalic Eye exam: PRESENT: conjunctiva pink, EOMI, PERRLA. ABSENT: scleral icterus Neck exam: ABSENT: carotid bruit, JVD, lymphadenopathy, thyromegaly Respiratory exam: PRESENT: clear to auscultation snow. ABSENT: rales, rhonchi, wheezes Cardiovascular exam: PRESENT: RRR. ABSENT: diastolic murmur, rubs, systolic murmur GI/Abdominal exam: PRESENT: normal bowel sounds, soft. ABSENT: distended, guarding, mass, organolmegaly, rebound, tenderness Extremities exam: PRESENT: full ROM. ABSENT: calf tenderness, clubbing, pedal edema Neurological exam: PRESENT: alert, awake, oriented to person, oriented to place, motor sensory deficit - Alert and oriented to self and place. Significant dysarthria. Right facial droop, tongue deviation to the right, right lower and upper extremity strength 0/5. Left lower upper extremity strength 5 out of 5. Right lower upper extremity decreased sensation throughout, left upper lower extremity sensation intact. Reflexes right side 0/2 flexors left side 2/2 Psychiatric exam: PRESENT: appropriate affect, normal mood. ABSENT: homicidal ideation, suicidal ideation Results Laboratory Results: 05/05/18 05:13 05/05/18 05:13 05/05/18 05/05/18 05:13 05:13 WBC 4.6 RBC 4.85 Hgb 13.5 Hct 39.1 MCV 81 MCH 27.7 MCHC 34.4 RDW 13.3 Plt Count 228 Sodium 142.7 Potassium 4.2 Chloride 110 H Carbon Dioxide 24 Anion Gap 9 BUN 19 Creatinine 0.91 Est GFR ( Amer) > 60 Est GFR (Non-Af Amer) > 60 Glucose 95 Calcium 9.0 Triglycerides 48 Cholesterol 139.65 LDL Cholesterol Direct 93 VLDL Cholesterol 10.0 HDL Cholesterol 38 L 05/04/18 05/04/18 05/04/18 01:29 07:13 07:13 Creatine Kinase 222 H CK-MB (CK-2) 1.48 Troponin I 0.014 0.018 05/04/18 05/04/18 05/04/18 14:16 14:16 20:13 Creatine Kinase 247 H 279 H CK-MB (CK-2) 1.42 Troponin I 0.016 05/04/18 20:13 Creatine Kinase CK-MB (CK-2) 1.51 Troponin I 0.021 Impressions: Head CT 05/03/18 20:03 IMPRESSION: Negative for acute intracranial abnormality. Mild atrophy and small vessel ischemic change TECHNICAL DOCUMENTATION: Quality ID # [id number]: Final reports with documentation of one or more dose reduction techniques (e.g., Automated exposure control, adjustment of the mA and/or kV according to patient size, use of iterative reconstruction technique) copyright 2011 [employer]- All Rights Reserved Head MRI 05/04/18 00:00 IMPRESSION: Acute left pontine infarct. Diffuse atrophy with small vessel ischemic change. Minor mucosal thickening of the right maxillary sinus and ethmoid air cells. copyright 2011 [employer]- All Rights Reserved Chest X-Ray 05/04/18 00:04 IMPRESSION: No acute findings. No focal lung consolidation. Carotid Doppler Study 05/04/18 03:03 IMPRESSION: NO HEMODYNAMICALLY SIGNIFICANT STENOSIS. Brain MRI with MRA 05/04/18 03:05 IMPRESSION: Attenuated appearance to the left superior cerebellar artery, and left anterior inferior cerebellar artery, which could reflect slow flow and/or partial occlusion. No other MRA evidence for vascular stenosis. At least mild to moderate atheromatous changes of the right cavernous and supraclinoid ICA. copyright 2010 [employer]- All Rights Reserved Assessment & Plan - Diagnosis (1) Right pontine cerebrovascular accident Is this a current diagnosis for this admission?: Yes Plan: Continue PT OT ST. Discharge to rehab when ready. Continue aspirin, statins, beta-blockers. Optimize blood pressure. 05/04/2018. 2D echo LVEF more than 60%. Grade 1/4 mild diastolic dysfunction. No thrombus. 05/04/2018. MRI brain acute left pontine infarct. 05/04/2018. MRI brain attenuated appearance to the left superior cerebellar a rtery and left anterior inferior cerebellar artery. 05/03/2018. CT head negative for any acute abnormalities. 05/04/2018. EKG sinus rhythm LVH. (2) HTN (hypertension) Is this a current diagnosis for this admission?: No Plan: Not controlled. Continue atenolol, hydralazine, adjust meds as needed. (3) Dysarthria Is this a current diagnosis for this admission?: Yes Plan: As per problem #1. (4) Dysphagia Qualifiers: Dysphagia type: oropharyngeal phase Qualified Code(s): R13.12 - Dysphagia, oropharyngeal phase Is this a current diagnosis for this admission?: Yes Plan: Due to problem #1. Continue speech therapy.
[2018-05-05] MEDS: ATORVASTATIN CALCIUM 40 MG TABLET PO SCH (22:06)
[2018-05-06] MEDS: IPRATROPIUM BROMIDE 0.02% NEB 0.5 MG/2.5 ML AMPUL NEB SCH ×3 (00:17→16:37)
[2018-05-06] MEDS: LEVALBUTEROL HCL NEB 1.25 MG/3 ML AMPUL NEB SCH ×3 (00:17→16:37)
[2018-05-06 06:26] LABS: HEMATOCRIT 40.5 % (37.9-51.0); MEAN CORPUSCULAR HEMOGLOBIN 27.9 pg (27.0-33.4); MEAN CORPUSCULAR HGB CONC 34.6 g/dL (32.0-36.0); MEAN CORPUSCULAR VOLUME 81 fl (80-97); PLATELET COUNT 205 10^3/uL (150-450); RED BLOOD COUNT 5.02 10^6/uL (4.35-5.55); RED CELL DISTRIBUTION WIDTH 13.1 % (11.5-14.0); WHITE BLOOD COUNT 8.1 10^3/uL (4.0-10.5)
[2018-05-06 06:37] LABS: ANION GAP 7 (5-19); BLOOD UREA NITROGEN 19 mg/dL (7-20); CARBON DIOXIDE 24 mmol/L (22-30); CHLORIDE 110 mmol/L (98-107); GLUCOSE 116 mg/dL (75-110); SODIUM 141.4 mmol/L (137-145)
[2018-05-06] MEDS: BUDESONIDE NEB 0.5 MG/2 ML AMPUL NEB SCH ×2 (07:56→20:41)
[2018-05-06] MEDS: FONDAPARINUX SODIUM INJ 2.5 MG/0.5 ML DISP.SYRIN SUBCUT SCH (08:26)
--- NOTE | 2018-05-06 09:50 | RADIOLOGY REPORT (SQ) ---
EXAM DESCRIPTION: CHEST SINGLE VIEW COMPLETED DATE/TIME: 05/06/2018 9:24 am REASON FOR STUDY: rule out aspiration COMPARISON: Chest films 05/04/2018, 05/02/2018, 03/18/2017 EXAM PARAMETERS: NUMBER OF VIEWS: One view. TECHNIQUE: Single frontal radiographic view of the chest acquired. RADIATION DOSE: NA LIMITATIONS: None. FINDINGS: LUNGS AND PLEURA: Right middle lobe airspace disease is present, worrisome for early or de veloping pneumonia. Left lung well inflated and clear. No right or left pleural effusion. No pneumothorax. MEDIASTINUM AND HILAR STRUCTURES: No masses. Contour normal. HEART AND VASCULAR STRUCTURES: Borderline cardiomegaly BONES: No acute findings. HARDWARE: None in the chest. OTHER: No other significant finding. IMPRESSION: Right middle lobe airspace disease worrisome for pneumonia TECHNICAL DOCUMENTATION: JOB ID: [id number] [employer]- All Rights Reserved Reading location - IP/workstation name: [email or web address]
[2018-05-06] MEDS: CLOPIDOGREL BISULFATE 75 MG TABLET PO SCH (11:18)
[2018-05-06] MEDS: ATENOLOL 50 MG TABLET PO SCH (11:18)
[2018-05-06 13:02] LABS: ARTERIAL BLOOD FIO2 4L; ARTERIAL BLOOD HCO3 24.7 mmol/L (20-24); ARTERIAL BLOOD O2 SATURATION 97.5 % (94-98); ARTERIAL BLOOD PCO2 36.6 mmHg (35-45); ARTERIAL BLOOD PH 7.45 (7.35-7.45); ARTERIAL BLOOD PO2 93.7 mmHg (80-100); ARTERIAL BLOOD TOTAL CO2 25.8 mmol/L (23-27)
--- NOTE | 2018-05-06 13:26 | RADIOLOGY REPORT (SQ) ---
EXAM DESCRIPTION: CT HEAD WITHOUT COMPLETED DATE/TIME: 05/06/2018 1:12 pm REASON FOR STUDY: AMS COMPARISON: MRI brain 05/04/2018 CT brain 05/03/2018, 04/19/2017, 12/29/2016 TECHNIQUE: Axial images acquired through the brain without intravenous contrast. Images reviewed wi th bone, brain and subdural windows. Additional sagittal and coronal reconstructions were generated. Images stored on PACS. All CT scanners at this facility use dose modulation, iterative reconstruction, and/or weight based d osing when appropriate to reduce radiation dose to as low as reasonably achievable (ALARA). [facility]: Dose Right [facility]: CareDose [facility]: Dose Right [facility]: Teradose 4D [facility]: Tapit RADIATION DOSE: CT Rad equipment meets quality standard of care and radiation dose reduction techniq ues were employed. CTDIvol: 49.9 - 49.9 mGy. DLP: 2010 mGy-cm. mGy. LIMITATIONS: Motion artifact, patient scanned twice FINDINGS: VENTRICLES: Normal size and contour. CEREBRUM: No masses. No hemorrhage. No midline shift. No evidence for acute infarction. Minimal bi frontal low-attenuation from small vessel ischemic change. Old lacunar infarcts in the bifrontal jack p periventricular white matter and right caudate. CEREBELLUM: There is a moderate size acute nonhemorrhagic pontine infarct unchanged from MRI brain . This is best shown on axial series 6, image 15/37. Remainder of the posterior fossa structures are otherwise unremarkable. No mass effect or midline sh ift. No acute hemorrhage. EXTRAAXIAL SPACES: No fluid collections. No masses. ORBITS AND GLOBE: No intra- or extraconal masses. Normal contour of globe without masses. CALVARIUM: No fracture. PARANASAL SINUSES: No fluid or mucosal thickening. SOFT TISSUES: No mass or hematoma. OTHER: No other significant finding. IMPRESSION: Moderate size acute nonhemorrhagic left pontine infarct unchanged from MRI 05/04/2018. EVIDENCE OF ACUTE STROKE: YES. COMMENT: Quality ID # [id number]: Final reports with documentation of one or more dose reduction techniques (e.g., Automated exposure control, adjustment of the mA and/or kV according to patient size, use of iterative reconstruction technique) TECHNICAL DOCUMENTATION: JOB ID: [id number] [employer] All Rights Reserved Reading location - IP/workstation name: [email or web address]
--- NOTE | 2018-05-06 14:51 | PDOC PROGRESS REPORT ---
Subjective Progress Note for:: 05/06/18 Subjective:: 05/05/2018. No acute events overnight. MRI brain shows left pontine infarct, diffuse atrophy and small vessel ischemic changes, Doppler no hemodynamically significant stenosis, 2D echo left ventricular ejection fraction more than 60%, mild diastolic dysfunction, no thrombus. On my encounter patient is alert and oriented with severe dysarthria and right- sided weakness. Patient living at home with his sister and does not work at this point. Denies any fever, chills, nausea, vomiting, diarrhea, constipation or any urinary symptoms. Received PT OT and recommendation is to discharge to SNF rehab. Patient received ST and recommendation is pain liquids with regular diet. 05/06/2018. Patient has worsening of his neurological symptoms. Appears more somnolent but arousable, worsening aphasia, does not follow command. Repeat CT did not show any new infarct. Family was contacted about his CODE STATUS. Patient has 2 kids were out of state but he does not communicate with him. His sister who lives here in [place] stopped by after conversation with the patient decided to have the patient full code. Reason For Visit: ACUTE LEFT HEMISPHERE ISCHEMIC CVA Physical Exam Vital Signs: Temp Pulse Resp BP Pulse Ox 98.5 F 69 20 171/61 H 98 05/06/18 11:44 05/06/18 11:44 05/06/18 11:44 05/06/18 11:44 05/06/18 11:44 Intake & Output 05/05/18 05/06/18 05/07/18 06:59 06:59 06:59 Intake Total 237 1192 325 Output Total 350 1350 250 Balance -113 -158 75 Weight 88.1 kg 88.6 kg General appearance: PRESENT: no acute distress Head exam: PRESENT: atraumatic, normocephalic Respiratory exam: PRESENT: clear to auscultation snow. ABSENT: rales, rhonchi, w heezes Cardiovascular exam: PRESENT: RRR. ABSENT: diastolic murmur, rubs, systolic murmur GI/Abdominal exam: PRESENT: normal bowel sounds, soft. ABSENT: distended, guarding, mass, organolmegaly, rebound, tenderness Neurological exam: PRESENT: altered, aphasic Results Laboratory Results: 05/06/18 05:16 05/06/18 05:16 05/06/18 05/06/18 05/06/18 05:16 05:16 12:48 WBC 8.1 RBC 5.02 Hgb 14.0 Hct 40.5 MCV 81 MCH 27.9 MCHC 34.6 RDW 13.1 Plt Count 205 Carbonic Acid 1.10 HCO3/H2CO3 Ratio 22:1 ABG pH 7.45 ABG pCO2 36.6 ABG pO2 93.7 ABG HCO3 24.7 H ABG O2 Saturation 97.5 ABG Base Excess 1.0 FiO2 4L Sodium 141.4 Potassium 4.0 Chloride 110 H Carbon Dioxide 24 Anion Gap 7 BUN 19 Creatinine 0.95 Est GFR ( Amer) > 60 Est GFR (Non-Af Amer) > 60 Glucose 116 H Calcium 9.0 05/04/18 05/04/18 05/04/18 01:29 07:13 07:13 Creatine Kinase 222 H CK-MB (CK-2) 1.48 Troponin I 0.014 0.018 05/04/18 05/04/18 05/04/18 14:16 14:16 20:13 Creatine Kinase 247 H 279 H CK-MB (CK-2) 1.42 Troponin I 0.016 05/04/18 20:13 Creatine Kinase CK-MB (CK-2) 1.51 Troponin I 0.021 Impressions: Head MRI 05/04/18 00:00 IMPRESSION: Acute left pontine infarct. Diffuse atrophy with small vessel ischemic change. Minor mucosal thickening of the right maxillary sinus and ethmoid air cells. copyright 2010 [employer]- All Rights Reserved Carotid Doppler Study 05/04/18 03:03 IMPRESSION: NO HEMODYNAMICALLY SIGNIFICANT STENOSIS. Brain MRI with MRA 05/04/18 03:05 IMPRESSION: Attenuated appearance to the left superior cerebellar artery, and left anterior inferior cerebellar artery, which could reflect slow flow and/or partial occlusion. No other MRA evidence for vascular stenosis. At least mild to moderate atheromatous changes of the right cavernous and supraclinoid ICA. copyright 2010 [employer]- All Rights Reserved Head CT 05/06/18 00:00 IMPRESSION: Moderate size acute nonhemorrhagic left pontine infarct unchanged from MRI 05/04/2018. EVIDENCE OF ACUTE STROKE: YES. Chest X-Ray 05/06/18 08:58 IMPRESSION: Right middle lobe airspace disease worrisome for pneumonia Assessment & Plan - Diagnosis (1) Right pontine cerebrovascular accident Is this a current diagnosis for this admission?: Yes Plan: Worsening neurological symptoms is likely secondary to evolution of the acute pontine infarct. Repeat CT did not show any new stroke. Chest x-ray showed right middle lobe pneumonia. ABG unremarkable. Continue PT OT ST. Discharge to rehab when ready. Continue aspirin, statins, beta-blockers. Optimize blood pressure. 05/04/2018. 2D echo LVEF more than 60%. Grade 1/4 mild diastolic dysfunction. No thrombus. 05/04/2018. MRI brain acute left pontine infarct. 05/04/2018. MRI brain attenuated appearance to the left superior cerebellar artery and left anterior inferior cerebellar artery. 05/03/2018. CT head negative for any acute abnormalities. 05/04/2018. EKG sinus rhythm LVH. (2) HTN (hypertension) Is this a current diagnosis for this admission?: No Plan: Not controlled. Systolic blood pressure 130s-170s. Saturating 98% on room air. Goal of systolic blood pressure between 150-170 for the next 24 hours. Patient's care was discussed with from [facility] who suggested to keep systolic blood pressure between 150-170 for the next 24 hours and it would be safe to continue aspirin 325, and Lovenox VT prophylaxis dosage. Repeat CT head tomorrow. (3) Dysarthria Is this a current diagnosis for this admission?: Yes Plan: As per problem #1. (4) Dysphagia Qualifiers: Dysphagia type: oropharyngeal phase Qualified Code(s): R13.12 - Dysphagia, oropharyngeal phase Is this a current diagnosis for this admission?: Yes Plan: Due to problem #1. Continue speech therapy. (5) Aspiration pneumonia Is this a current diagnosis for this admission?: Yes Plan: 05/06/2018 CXR Right middle lobe airspace disease possibly pneumonia likely due to aspiration as patient has severe dysphagia. Started on ceftriaxone for presumptive aspiration pneumonia. Follow-up cultures.
[2018-05-06] MEDS ORDERED: DEXTROSE 5%-NORMAL SALINE 1,000 ML IV PRN (14:55)
[2018-05-06] MEDS ORDERED: NALBUPHINE HCL INJ 10 MG/1 ML AMPULE IV PRN (15:00)
[2018-05-06] MEDS ORDERED: ONDANSETRON 4 MG TAB.RAPDIS PO PRN (15:30)
[2018-05-06] MEDS ORDERED: ONDANSETRON HCL INJ/PF 4 MG/2 ML SDV IV PRN (15:30)
[2018-05-06] MEDS: CEFTRIAXONE 1 GM/D5W RTU 1 GM/50 ML RTUPB IV SCH (15:56)
[2018-05-06] MEDS: ATORVASTATIN CALCIUM 40 MG TABLET PO SCH (22:02)
[2018-05-07] MEDS: LEVALBUTEROL HCL NEB 1.25 MG/3 ML AMPUL NEB SCH ×3 (00:34→17:57)
[2018-05-07] MEDS: IPRATROPIUM BROMIDE 0.02% NEB 0.5 MG/2.5 ML AMPUL NEB SCH ×3 (00:34→16:30)
[2018-05-07 05:25] LABS: ABSOLUTE LYMPHOCYTES (AUTO) 0.7 10^3/uL (0.5-4.7); ABSOLUTE MONOCYTES (AUTO) 0.8 10^3/uL (0.1-1.4); ABSOLUTE NEUT (AUTO) 4.9 10^3/uL (1.7-8.2); BASOPHILS % (AUTO) 0.3 % (0-2); EOSINOPHILS % (AUTO) 0.7 % (0-6); HEMATOCRIT 39.8 % (37.9-51.0); HEMOGLOBIN 13.8 g/dL (13.5-17.0); MEAN CORPUSCULAR HEMOGLOBIN 27.7 pg (27.0-33.4); MEAN CORPUSCULAR HGB CONC 34.5 g/dL (32.0-36.0); MEAN CORPUSCULAR VOLUME 80 fl (80-97); MONOCYTES % (AUTO) 12.4 % (3-13); PLATELET COUNT 176 10^3/uL (150-450); RED BLOOD COUNT 4.97 10^6/uL (4.35-5.55); RED CELL DISTRIBUTION WIDTH 13.7 % (11.5-14.0); SEGMENTED NEUTROPHILS % (AUTO) 75.6 % (42-78); TOTAL CELLS COUNTED % (AUTO) 100 %; WHITE BLOOD COUNT 6.4 10^3/uL (4.0-10.5)
[2018-05-07 05:41] LABS: ALANINE AMINOTRANSFERASE 36 U/L (21-72); ALBUMIN 3.7 g/dL (3.5-5.0); ALKALINE PHOSPHATASE 75 U/L (38-126); ANION GAP 10 (5-19); ASPARTATE AMINO TRANSFERASE 34 U/L (17-59); BILIRUBIN,DIRECT 0.2 mg/dL (0.0-0.4); BILIRUBIN,TOTAL 0.4 mg/dL (0.2-1.3); BLOOD UREA NITROGEN 18 mg/dL (7-20); CALCIUM 8.8 mg/dL (8.4-10.2); CARBON DIOXIDE 23 mmol/L (22-30); CHLORIDE 109 mmol/L (98-107); GLUCOSE 112 mg/dL (75-110); POTASSIUM 4.3 mmol/L (3.6-5.0); SODIUM 142.4 mmol/L (137-145); TOTAL PROTEIN 6.6 g/dL (6.3-8.2)
--- NOTE | 2018-05-07 07:23 | RADIOLOGY REPORT (SQ) ---
CLINICAL HISTORY: Routine Stroke follow up COMPARISON: May 06, 2018. TECHNIQUE: CT HEAD WITHOUT IV CONTRAST on 05/07/2018 7:00 AM PURIFICATION OPERATOR This exam was performed according to our departmental dose-optimization program, which includes automated exposure control, adjustment of the mA and/or kV according to patient size and/or use of iterative reconstruction technique. FINDINGS: There is no acute hemorrhage, mass effect or midline shift. Hernández-white differentiation is preserved. There is no hydrocephalus. There is no significant volume loss for age. There are mild patchy hypodensities within the periventricular and subcortical white matter, consistent with microangiopathic ischemic changes. Bilateral kendell holes are present. Orbits and globes are unremarkable. The paranasal sinuses are clear. Mastoid air cells are clear. IMPRESSION: No acute intracranial findings.
[2018-05-07] MEDS: BUDESONIDE NEB 0.5 MG/2 ML AMPUL NEB SCH ×2 (08:46→20:03)
[2018-05-07] MEDS: CEFTRIAXONE 1 GM/D5W RTU 1 GM/50 ML RTUPB IV SCH (11:22)
[2018-05-07] MEDS: CLOPIDOGREL BISULFATE 75 MG TABLET PO SCH (11:22)
[2018-05-07] MEDS: ENOXAPARIN SODIUM INJ 40 MG/0.4 ML DISP.SYRIN SUBCUT SCH (11:22)
--- NOTE | 2018-05-07 14:42 | PDOC PROGRESS REPORT ---
Subjective Progress Note for:: 05/07/18 Subjective:: 05/05/2018. No acute events overnight. MRI brain shows left pontine infarct, diffuse atrophy and small vessel ischemic changes, Doppler no hemodynamically significant stenosis, 2D echo left ventricular ejection fraction more than 60%, mild diastolic dysfunction, no thrombus. On my encounter patient is alert and oriented with severe dysarthria and right- sided weakness. Patient living at home with his sister and does not work at this point. Denies any fever, chills, nausea, vomiting, diarrhea, constipation or any urinary symptoms. Received PT OT and recommendation is to discharge to SNF rehab. Patient received ST and recommendation is pain liquids with regular diet. 05/06/2018. Patient has worsening of his neurological symptoms. Appears more somnolent but arousable, worsening aphasia, does not follow command. Repeat CT did not show any new infarct. Family was contacted about his CODE STATUS. Patient has 2 kids were out of state but he does not communicate with him. His sister who lives here in [place] stopped by after conversation with the patient decided to have the patient full code. 05/07/2018. No acute events overnight. Repeat CT head does not show any acute infarct. And has had improvement of his altered mental status. Patient is alert oriented x3 however with marked dysarthria. He has right facial droop, tongue deviating to the right side, and right hemiparesis. Denies any fever, chills, nausea, vomiting, diarrhea, constipation. Saturating 100% on room air, blood pressure maintained between 140s and 170s. Receiving daily PT/OT. Reason For Visit: TIA, DECONDITIONING Physical Exam Vital Signs: Temp Pulse Resp BP Pulse Ox 100 F 56 L 18 158/57 H 100 05/07/18 12:00 05/07/18 12:00 05/07/18 12:00 05/07/18 12:00 05/07/18 12:00 Intake & Output 05/06/18 05/07/18 05/08/18 06:59 06:59 06:59 Intake Total 1192 300 277 Output Total 1350 950 420 Balance -158 -650 -143 Weight 88.6 kg 87.3 kg General appearance: PRESENT: no acute distress, well-developed, well-nourished Head exam: PRESENT: atraumatic, normocephalic Eye exam: PRESENT: EOMI, PERRLA Respiratory exam: PRESENT: clear to auscultation snow. ABSENT: rales, rhonchi, wheezes Cardiovascular exam: PRESENT: RRR. ABSENT: diastolic murmur, rubs, systolic murmur GI/Abdominal exam: PRESENT: normal bowel sounds, soft. ABSENT: distended, guarding, mass, organolmegaly, rebound, tenderness Extremities exam: PRESENT: full ROM. ABSENT: calf tenderness, clubbing, pedal edema Neurological exam: PRESENT: alert, awake, oriented to person, oriented to place, oriented to time, oriented to situation, CN II-XII grossly intact - Dysarthria, Rt Facial Droop, Tongue Deviating Rt. Rt U/L/E St 0/5. Lt U/L/E St 5/5. ABSENT: motor sensory deficit Results Laboratory Results: 05/07/18 05:06 05/07/18 05:06 05/07/18 05/07/18 05:06 05:06 WBC 6.4 RBC 4.97 Hgb 13.8 Hct 39.8 MCV 80 MCH 27.7 MCHC 34.5 RDW 13.7 Plt Count 176 Seg Neutrophils % 75.6 Lymphocytes % 11.0 L Monocytes % 12.4 Eosinophils % 0.7 Basophils % 0.3 Absolute Neutrophils 4.9 Absolute Lymphocytes 0.7 Absolute Monocytes 0.8 Absolute Eosinophils 0.0 Absolute Basophils 0.0 Sodium 142.4 Potassium 4.3 Chloride 109 H Carbon Dioxide 23 Anion Gap 10 BUN 18 Creatinine 0.90 Est GFR ( Amer) > 60 Est GFR (Non-Af Amer) > 60 Glucose 112 H Calcium 8.8 Magnesium 2.2 Total Bilirubin 0.4 AST 34 ALT 36 Alkaline Phosphatase 75 Total Protein 6.6 Albumin 3.7 05/04/18 05/04/18 05/04/18 01:29 07:13 07:13 Creatine Kinase 222 H CK-MB (CK-2) 1.48 Troponin I 0.014 0.018 05/04/18 05/04/18 05/04/18 14:16 14:16 20:13 Creatine Kinase 247 H 279 H CK-MB (CK-2) 1.42 Troponin I 0.016 05/04/18 20:13 Creatine Kinase CK-MB (CK-2) 1.51 Troponin I 0.021 Impressions: Head MRI 05/04/18 00:00 IMPRESSION: Acute left pontine infarct. Diffuse atrophy with small vessel ischemic change. Minor mucosal thickening of the right maxillary sinus and ethmoid air cells. copyright 2010 [employer]- All Rights Reserved Carotid Doppler Study 05/04/18 03:03 IMPRESSION: NO HEMODYNAMICALLY SIGNIFICANT STENOSIS. Brain MRI with MRA 05/04/18 03:05 IMPRESSION: Attenuated appearance to the left superior cerebellar artery, and left anterior inferior cerebellar artery, which could reflect slow flow and/or partial occlusion. No other MRA evidence for vascular stenosis. At least mild to moderate atheromatous changes of the right cavernous and supraclinoid ICA. copyright 2010 [employer]- All Rights Reserved Chest X-Ray 05/06/18 08:58 IMPRESSION: Right middle lobe airspace disease worrisome for pneumonia Head CT 05/07/18 07:00 IMPRESSION: No acute intracranial findings. Assessment & Plan - Diagnosis (1) Right pontine cerebrovascular accident Is this a current diagnosis for this admission?: Yes Plan: Stable neurological symptoms. Still status much improved since yesterday. Repeat CT head on 05/07/2018 no acute changes. Continue PT OT ST. Discharge to rehab when ready. Continue aspirin, statins, b eta-blockers. Optimize blood pressure. 05/07/2018. Head CT no acute changes. 05/06/2018. Head CT no acute changes. 05/04/2018. 2D echo LVEF more than 60%. Grade 1/4 mild diastolic dysfunction. No thrombus. 05/05/2018. MRI brain acute left pontine infarct. 05/04/2018. MRI brain attenuated appearance to the left superior cerebellar artery and left anterior inferior cerebellar artery. 05/03/2018. CT head negative for any acute abnormalities. 05/04/2018. EKG sinus rhythm LVH. (2) HTN (hypertension) Is this a current diagnosis for this admission?: No Plan: Not controlled. Systolic blood pressure 130s-170s. Saturating 98% on room air. Goal of systolic blood pressure between 130-150 for the next 24 hours. 05/04/2018 patient's care was discussed with from [facility] who suggested to keep systolic blood pressure between 150- 170 for the next 24 hours and it would be safe to continue aspirin 325, and Lovenox VT prophylaxis dosage. Repeat CT head tomorrow. (3) Dysarthria Is this a current diagnosis for this admission?: Yes Plan: As per problem #1. (4) Dysphagia Qualifiers: Dysphagia type: oropharyngeal phase Qualified Code(s): R13.12 - Dysphagia, oropharyngeal phase Is this a current diagnosis for this admission?: Yes Plan: Due to problem #1. Continue speech therapy. (5) Aspiration pneumonia Is this a current diagnosis for this admission?: Yes Plan: 05/06/2018 CXR Right middle lobe airspace disease possibly pneumonia likely due to aspiration as patient has severe dysphagia. ABG within normal limits. No leukocytosis or bandemia. Saturating 100% on room air. Day 2 IV ceftriaxone. Follow-up cultures. (6) Gram-positive bacteremia Is this a current diagnosis for this admission?: Yes Plan: 05/06/2018. Blood culture +1/2 gram-positive cocci. Likely contamination. Follow sensitivity and susceptibility. Day 2 ceftriaxone. Will switch antibiotics once susceptibilities available.
[2018-05-07] MEDS: ATORVASTATIN CALCIUM 40 MG TABLET PO SCH (21:07)
[2018-05-08] MEDS: IPRATROPIUM BROMIDE 0.02% NEB 0.5 MG/2.5 ML AMPUL NEB SCH ×2 (00:17→09:52)
[2018-05-08] MEDS: LEVALBUTEROL HCL NEB 1.25 MG/3 ML AMPUL NEB SCH ×2 (00:17→09:52)
[2018-05-08 06:07] LABS: ABSOLUTE EOSINOPHILS # (AUTO) 0.2 10^3/uL (0.0-0.6); ABSOLUTE MONOCYTES (AUTO) 0.8 10^3/uL (0.1-1.4); ABSOLUTE NEUT (AUTO) 2.9 10^3/uL (1.7-8.2); BASOPHILS % (AUTO) 0.4 % (0-2); HEMOGLOBIN 13.4 g/dL (13.5-17.0); LYMPHOCYTES % (AUTO) 20.3 % (13-45); MEAN CORPUSCULAR HEMOGLOBIN 27.6 pg (27.0-33.4); MEAN CORPUSCULAR HGB CONC 34.2 g/dL (32.0-36.0); MEAN CORPUSCULAR VOLUME 81 fl (80-97); MONOCYTES % (AUTO) 16.1 % (3-13); PLATELET COUNT 193 10^3/uL (150-450); RED BLOOD COUNT 4.83 10^6/uL (4.35-5.55); RED CELL DISTRIBUTION WIDTH 13.4 % (11.5-14.0); SEGMENTED NEUTROPHILS % (AUTO) 59.2 % (42-78); TOTAL CELLS COUNTED % (AUTO) 100 %; WHITE BLOOD COUNT 4.9 10^3/uL (4.0-10.5)
[2018-05-08 06:30] LABS: ALANINE AMINOTRANSFERASE 56 U/L (21-72); ALBUMIN 3.6 g/dL (3.5-5.0); ALKALINE PHOSPHATASE 79 U/L (38-126); ANION GAP 12 (5-19); ASPARTATE AMINO TRANSFERASE 45 U/L (17-59); BILIRUBIN,DIRECT 0.2 mg/dL (0.0-0.4); BILIRUBIN,TOTAL 0.4 mg/dL (0.2-1.3); BLOOD UREA NITROGEN 21 mg/dL (7-20); CALCIUM 8.1 mg/dL (8.4-10.2); CARBON DIOXIDE 21 mmol/L (22-30); CHLORIDE 109 mmol/L (98-107); GLUCOSE 105 mg/dL (75-110); POTASSIUM 4.1 mmol/L (3.6-5.0); TOTAL PROTEIN 6.1 g/dL (6.3-8.2)
[2018-05-08] MEDS: BUDESONIDE NEB 0.5 MG/2 ML AMPUL NEB SCH (09:52)
--- NOTE | 2018-05-08 10:20 | PDOC PROGRESS REPORT ---
Subjective Progress Note for:: 05/08/18 Subjective:: 05/05/2018. No acute events overnight. MRI brain shows left pontine infarct, diffuse atrophy and small vessel ischemic changes, Doppler no hemodynamically significant stenosis, 2D echo left ventricular ejection fraction more than 60%, mild diastolic dysfunction, no thrombus. On my encounter patient is alert and oriented with severe dysarthria and right- sided weakness. Patient living at home with his sister and does not work at this point. Denies any fever, chills, nausea, vomiting, diarrhea, constipation or any urinary symptoms. Received PT OT and recommendation is to discharge to SNF rehab. Patient received ST and recommendation is pain liquids with regular diet. 05/06/2018. Patient has worsening of his neurological symptoms. Appears more somnolent but arousable, worsening aphasia, does not follow command. Repeat CT did not show any new infarct. Family was contacted about his CODE STATUS. Patient has 2 kids were out of state but he does not communicate with him. His sister who lives here in [place] stopped by after conversation with the patient decided to have the patient full code. 05/07/2018. No acute events overnight. Repeat CT head does not show any acute infarct. And has had improvement of his altered mental status. Patient is alert oriented x3 however with marked dysarthria. He has right facial droop, tongue deviating to the right side, and right hemiparesis. Denies any fever, chills, nausea, vomiting, diarrhea, constipation. Saturating 100% on room air, blood pressure maintained between 140s and 170s. Receiving daily PT/OT. 05/08/2018. No acute events overnight. Patient vitals have been stable. Neurologically unchanged. Patient has significant dysarthria and not cooperating with [employer]. On my encounter when asked his name he got irritated saying everybody is asking me that and i do not like it because of my speech problem. He is alert and oriented x3 does not seem to be in any acute distress still has right-sided hemiparesis with significant dysarthria. He is p.o. tolerant. Reason For Visit: TIA, DECONDITIONING Physical Exam Vital Signs: Temp Pulse Resp BP Pulse Ox 97.8 F 55 L 20 148/72 H 99 05/08/18 08:20 05/08/18 08:20 05/08/18 08:20 05/08/18 08:20 05/08/18 08:20 Intake & Output 05/07/18 05/08/18 05/09/18 06:59 06:59 06:59 Intake Total 300 514 248 Output Total 950 1720 Balance -650 -1206 248 Weight 87.3 kg 87.1 kg General appearance: PRESENT: no acute distress, well-developed, well-nourished Head exam: PRESENT: atraumatic, normocephalic Eye exam: PRESENT: EOMI, PERRLA Respiratory exam: PRESENT: clear to auscultation snow. ABSENT: rales, rhonchi, wheezes Cardiovascular exam: PRESENT: RRR. ABSENT: diastolic murmur, rubs, systolic murmur GI/Abdominal exam: PRESENT: normal bowel sounds, soft. ABSENT: distended, guarding, mass, organolmegaly, rebound, tenderness Extremities exam: PRESENT: full ROM. ABSENT: calf tenderness, clubbing, pedal edema Neurological exam: PRESENT: alert, awake, oriented to person, oriented to place, oriented to time, oriented to situation, motor sensory deficit - CN II-XII grossly intact except for Dysarthria, Rt Facial Droop, Tongue Deviating Rt. Rt U/L/E St 0/5. Lt U/L/E St 5/5. Skin exam: PRESENT: dry, intact, warm. ABSENT: cyanosis, rash Results Laboratory Results: 05/08/18 05:34 05/08/18 05:34 05/08/18 05/08/18 05:34 05:34 WBC 4.9 RBC 4.83 Hgb 13.4 L Hct 39.0 MCV 81 MCH 27.6 MCHC 34.2 RDW 13.4 Plt Count 193 Seg Neutrophils % 59.2 Lymphocytes % 20.3 Monocytes % 16.1 H Eosinophils % 4.0 Basophils % 0.4 Absolute Neutrophils 2.9 Absolute Lymphocytes 1.0 Absolute Monocytes 0.8 Absolute Eosinophils 0.2 Absolute Basophils 0.0 Sodium 142.0 Potassium 4.1 Chloride 109 H Carbon Dioxide 21 L Anion Gap 12 BUN 21 H Creatinine 0.83 Est GFR ( Amer) > 60 Est GFR (Non-Af Amer) > 60 Glucose 105 Calcium 8.1 L Magnesium 2.1 Total Bilirubin 0.4 AST 45 ALT 56 Alkaline Phosphatase 79 Total Protein 6.1 L Albumin 3.6 05/04/18 05/04/18 05/04/18 01:29 07:13 07:13 Creatine Kinase 222 H CK-MB (CK-2) 1.48 Troponin I 0.014 0.018 05/04/18 05/04/18 05/04/18 14:16 14:16 20:13 Creatine Kinase 247 H 279 H CK-MB (CK-2) 1.42 Troponin I 0.016 05/04/18 20:13 Creatine Kinase CK-MB (CK-2) 1.51 Troponin I 0.021 Impressions: Head MRI 05/04/18 00:00 IMPRESSION: Acute left pontine infarct. Diffuse atrophy with small vessel ischemic change. Minor mucosal thickening of the right maxillary sinus and ethmoid air cells. copyright 2010 [employer]- All Rights Reserved Carotid Doppler Study 05/04/18 03:03 IMPRESSION: NO HEMODYNAMICALLY SIGNIFICANT STENOSIS. Brain MRI with MRA 05/04/18 03:05 IMPRESSION: Attenuated appearance to the left superior cerebellar artery, and left anterior inferior cerebellar artery, which could reflect slow flow and/or partial occlusion. No other MRA evidence for vascular stenosis. At least mild to moderate atheromatous changes of the right cavernous and supraclinoid ICA. copyright 2010 [employer]- All Rights Reserved Chest X-Ray 05/06/18 08:58 IMPRESSION: Right middle lobe airspace disease worrisome for pneumonia Head CT 05/07/18 07:00 IMPRESSION: No acute intracranial findings. Assessment & Plan - Diagnosis (1) Right pontine cerebrovascular accident Is this a current diagnosis for this admission?: Yes Plan: Stable neurological symptoms unchanged from yesterday. Repeat CT head on 05/07/2018 no acute changes. Continue PT OT ST. Discharge to rehab when ready. Continue aspirin, statins, beta-blockers. Optimize blood pressure. 05/07/2018. Head CT no acute changes. 05/06/2018. Head CT no acute changes. 05/04/2018. 2D echo LVEF more than 60%. Grade 1/4 mild diastolic dysfunction. No thrombus. 05/05/2018. MRI brain acute left pontine infarct. 05/04/2018. MRI brain attenuated appearance to the left superior cerebellar artery and left anterior inferior cerebellar artery. 05/03/2018. CT head negative for any acute abnormalities. 05/04/2018. EKG sinus rhythm LVH. (2) HTN (hypertension) Is this a current diagnosis for this admission?: No Plan: Not controlled. Systolic blood pressure 130-150.. Saturating 98% on room air. Start on low-dose ramipril. Adjust dosage as needed. Goal of systolic blood pressure 120-130. 05/04/2018 patient's care was discussed with from [facility] who suggested to keep systolic blood pressure between 150- 170 for the next 24 hours and it would be safe to continue aspirin 325, and Lovenox VT prophylaxis dosage. Repeat CT head tomorrow. (3) Dysarthria Is this a current diagnosis for this admission?: Yes Plan: As per problem #1. (4) Dysphagia Qualifiers: Dysphagia type: oropharyngeal phase Qualified Code(s): R13.12 - Dysphagia, oropharyngeal phase Is this a current diagnosis for this admission?: Yes Plan: Due to problem #1. Continue speech therapy. (5) Aspiration pneumonia Is this a current diagnosis for this admission?: Yes Plan: 05/06/2018 CXR Right middle lobe airspace disease possibly pneumonia likely due to aspiration as patient has severe dysphagia. ABG within normal limits. No leukocytosis or bandemia. Saturating 100% on room air. Day 3 IV ceftriaxone. Follow-up cultures. (6) Gram-positive bacteremia Is this a current diagnosis for this admission?: Yes Plan: 05/06/2018. Blood culture +1/2 gram-positive cocci. Likely contamination. Follow sensitivity and susceptibility. Day 3 ceftriaxone. Will switch antibiotics once susceptibilities available.
[2018-05-08] MEDS: CLOPIDOGREL BISULFATE 75 MG TABLET PO SCH (10:57)
[2018-05-08] MEDS ORDERED: RAMIPRIL 2.5 MG CAPSULE PO SCH (11:00)
[2018-05-08] MEDS ORDERED: LEVALBUTEROL HCL NEB 1.25 MG/3 ML AMPUL NEB PRN (11:00)
[2018-05-08] MEDS ORDERED: IPRATROPIUM BROMIDE 0.02% NEB 0.5 MG/2.5 ML AMPUL NEB PRN (11:01)
[2018-05-08] MEDS: ENOXAPARIN SODIUM INJ 40 MG/0.4 ML DISP.SYRIN SUBCUT SCH (11:09)
[2018-05-08] MEDS: ASPIRIN 81 MG TABLET, CHEWABLE PO SCH (11:09)
[2018-05-08] MEDS: CEFTRIAXONE 1 GM/D5W RTU 1 GM/50 ML RTUPB IV SCH (11:09)
[2018-05-08] MEDS: TRAZODONE HCL 50 MG TABLET PO PRN (21:56)
[2018-05-08] MEDS: ATORVASTATIN CALCIUM 40 MG TABLET PO SCH (21:56)
[2018-05-09 07:05] LABS: ABSOLUTE EOSINOPHILS # (AUTO) 0.2 10^3/uL (0.0-0.6); ABSOLUTE MONOCYTES (AUTO) 0.6 10^3/uL (0.1-1.4); ABSOLUTE NEUT (AUTO) 2.3 10^3/uL (1.7-8.2); BASOPHILS % (AUTO) 0.2 % (0-2); EOSINOPHILS % (AUTO) 3.8 % (0-6); LYMPHOCYTES % (AUTO) 23.7 % (13-45); MEAN CORPUSCULAR HEMOGLOBIN 27.5 pg (27.0-33.4); MEAN CORPUSCULAR HGB CONC 34.1 g/dL (32.0-36.0); MEAN CORPUSCULAR VOLUME 81 fl (80-97); MONOCYTES % (AUTO) 15.4 % (3-13); PLATELET COUNT 214 10^3/uL (150-450); RED BLOOD COUNT 4.72 10^6/uL (4.35-5.55); RED CELL DISTRIBUTION WIDTH 13.1 % (11.5-14.0); SEGMENTED NEUTROPHILS % (AUTO) 56.9 % (42-78); TOTAL CELLS COUNTED % (AUTO) 100 %; WHITE BLOOD COUNT 4.1 10^3/uL (4.0-10.5)
[2018-05-09 07:27] LABS: ALANINE AMINOTRANSFERASE 58 U/L (21-72); ALBUMIN 3.5 g/dL (3.5-5.0); ALKALINE PHOSPHATASE 78 U/L (38-126); ANION GAP 9 (5-19); ASPARTATE AMINO TRANSFERASE 45 U/L (17-59); BILIRUBIN,DIRECT 0.2 mg/dL (0.0-0.4); BILIRUBIN,TOTAL 0.5 mg/dL (0.2-1.3); BLOOD UREA NITROGEN 20 mg/dL (7-20); CARBON DIOXIDE 23 mmol/L (22-30); CHLORIDE 110 mmol/L (98-107); GLUCOSE 104 mg/dL (75-110); POTASSIUM 4.4 mmol/L (3.6-5.0); TOTAL PROTEIN 6.4 g/dL (6.3-8.2)
[2018-05-09] MEDS ORDERED: RAMIPRIL 2.5 MG CAPSULE PO SCH (10:00)
[2018-05-09] MEDS: ASPIRIN 81 MG TABLET, CHEWABLE PO SCH (10:48)
[2018-05-09] MEDS: RAMIPRIL 5 MG CAPSULE PO SCH (10:48)
[2018-05-09] MEDS: ENOXAPARIN SODIUM INJ 40 MG/0.4 ML DISP.SYRIN SUBCUT SCH (10:48)
--- NOTE | 2018-05-09 11:22 | PDOC PROGRESS REPORT ---
Subjective Progress Note for:: 05/09/18 Subjective:: 05/05/2018. No acute events overnight. MRI brain shows left pontine infarct, diffuse atrophy and small vessel ischemic changes, Doppler no hemodynamically significant stenosis, 2D echo left ventricular ejection fraction more than 60%, mild diastolic dysfunction, no thrombus. On my encounter patient is alert and oriented with severe dysarthria and right- sided weakness. Patient living at home with his sister and does not work at this point. Denies any fever, chills, nausea, vomiting, diarrhea, constipation or any urinary symptoms. Received PT OT and recommendation is to discharge to SNF rehab. Patient received ST and recommendation is pain liquids with regular diet. 05/06/2018. Patient has worsening of his neurological symptoms. Appears more somnolent but arousable, worsening aphasia, does not follow command. Repeat CT did not show any new infarct. Family was contacted about his CODE STATUS. Patient has 2 kids were out of state but he does not communicate with him. His sister who lives here in [place] stopped by after conversation with the patient decided to have the patient full code. 05/07/2018. No acute events overnight. Repeat CT head does not show any acute infarct. And has had improvement of his altered mental status. Patient is alert oriented x3 however with marked dysarthria. He has right facial droop, tongue deviating to the right side, and right hemiparesis. Denies any fever, chills, nausea, vomiting, diarrhea, constipation. Saturating 100% on room air, blood pressure maintained between 140s and 170s. Receiving daily PT/OT. 05/08/2018. No acute events overnight. Patient vitals have been stable. Neurologically unchanged. Patient has significant dysarthria and not cooperating with [employer]. On my encounter when asked his name he got irritated saying everybody is asking me that and i do not like it because of my speech problem. He is alert and oriented x3 does not seem to be in any acute distress still has right-sided hemiparesis with significant dysarthria. He is p.o. tolerant. 2018. No acute events overnight. Vitals stable. Neurologically unchanged. Significant dysarthria and right upper and lower extremity hemiparesis. She is very anxious to leave for rehab. Denies any fever, nausea, vomiting, diarrhea, constipation or any urinary symptoms. Patient is p.o. tolerant receiving PT while in hospital. Having normal bowel and bladder movements. Reason For Visit: TIA, DECONDITIONING Physical Exam Vital Signs: Temp Pulse Resp BP Pulse Ox 98.0 F 54 L 14 153/59 H 96 05/09/18 07:09 05/09/18 10:24 05/09/18 10:24 05/09/18 07:09 05/09/18 10:24 Intake & Output 05/08/18 05/09/18 05/10/18 06:59 06:59 06:59 Intake Total 514 1170 Output Total 1720 1245 Balance -1206 -75 Weight 87.1 kg 87.1 kg General appearance: PRESENT: no acute distress, well-developed, well-nourished Head exam: PRESENT: atraumatic, normocephalic Respiratory exam: PRESENT: clear to auscultation snow. ABSENT: rales, rhonchi, wheezes GI/Abdominal exam: PRESENT: normal bowel sounds, soft. ABSENT: distended, guarding, mass, organolmegaly, rebound, tenderness Extremities exam: PRESENT: full ROM. ABSENT: calf tenderness, clubbing, pedal edema Neurological exam: PRESENT: alert, awake, oriented to person, oriented to place, oriented to time, oriented to situation, motor sensory deficit - CN II-XII grossly intact except for Dysarthria, Rt Facial Droop, Tongue Deviating Rt. Rt U/L/E St 0/5. Lt U/L/E St 5/5. Results Laboratory Results: 05/09/18 05:54 05/09/18 05:54 05/09/18 05/09/18 05:54 05:54 WBC 4.1 RBC 4.72 Hgb 13.0 L Hct 38.0 MCV 81 MCH 27.5 MCHC 34.1 RDW 13.1 Plt Count 214 Seg Neutrophils % 56.9 Lymphocytes % 23.7 Monocytes % 15.4 H Eosinophils % 3.8 Basophils % 0.2 Absolute Neutrophils 2.3 Absolute Lymphocytes 1.0 Absolute Monocytes 0.6 Absolute Eosinophils 0.2 Absolute Basophils 0.0 Sodium 142.0 Potassium 4.4 Chloride 110 H Carbon Dioxide 23 Anion Gap 9 BUN 20 Creatinine 0.83 Est GFR ( Amer) > 60 Est GFR (Non-Af Amer) > 60 Glucose 104 Calcium 9.0 Magnesium 2.2 Total Bilirubin 0.5 AST 45 ALT 58 Alkaline Phosphatase 78 Total Protein 6.4 Albumin 3.5 05/06/18 13:58 Blood Blood Culture - Final Mrsa (Meth Resis Staph Aureus) 05/04/18 05/04/18 05/04/18 01:29 07:13 07:13 Creatine Kinase 222 H CK-MB (CK-2) 1.48 Troponin I 0.014 0.018 05/04/18 05/04/18 05/04/18 14:16 14:16 20:13 Creatine Kinase 247 H 279 H CK-MB (CK-2) 1.42 Troponin I 0.016 05/04/18 20:13 Creatine Kinase CK-MB (CK-2) 1.51 Troponin I 0.021 Impressions: Head MRI 05/04/18 00:00 IMPRESSION: Acute left pontine infarct. Diffuse atrophy with small vessel ischemic change. Minor mucosal thickening of the right maxillary sinus and ethmoid air cells. copyright 2010 [employer]- All Rights Reserved Carotid Doppler Study 05/04/18 03:03 IMPRESSION: NO HEMODYNAMICALLY SIGNIFICANT STENOSIS. Brain MRI with MRA 05/04/18 03:05 IMPRESSION: Attenuated appearance to the left superior cerebellar artery, and left anterior inferior cerebellar artery, which could reflect slow flow and/or partial occlusion. No other MRA evidence for vascular stenosis. At least mild to moderate atheromatous changes of the right cavernous and supraclinoid ICA. copyright 2010 [employer]- All Rights Reserved Chest X-Ray 05/06/18 08:58 IMPRESSION: Right middle lobe airspace disease worrisome for pneumonia Head CT 05/07/18 07:00 IMPRESSION: No acute intracranial findings. Assessment & Plan - Diagnosis (1) MRSA (methicillin resistant staph aureus) culture positive Is this a current diagnosis for this admission?: Yes Plan: 05/06/2018. Had worsening neurological symptoms had a repeat CT head which was negative for any acute stroke and chest x-ray was done which showed some suspicion for pneumonia. Patient was started on ceftriaxone for presumptive aspiration pneumonia and blood cultures were obtained. 05/09/2018 patient blood culture came back positive for MRSA 03/16. Sure if this contamination or not. Patient is asymptomatic, afebrile, no leukocytosis. We will switch to vancomycin, repeat blood cultures and consult ID for further recommendation. (2) Right pontine cerebrovascular accident Is this a current diagnosis for this admission?: Yes Plan: Stable neurological symptoms unchanged from yesterday. Alert oriented x3. Repeat CT head on 05/07/2018 no acute changes. Continue PT OT ST. Discharge to rehab when ready. Continue aspirin, statins, beta-blockers. Optimize blood pressure. 05/07/2018. Head CT no acute changes. 05/06/2018. Head CT no acute changes. 05/04/2018. 2D echo LVEF more than 60%. Grade 1/4 mild diastolic dysfunction. No thrombus. 05/05/2018. MRI brain acute left pontine infarct. 05/04/2018. MRI brain attenuated appearance to the left superior cerebellar artery and left anterior inferior cerebellar artery. 05/03/2018. CT head negative for any acute abnormalities. 05/04/2018. EKG sinus rhythm LVH. (3) HTN (hypertension) Is this a current diagnosis for this admission?: No Plan: Not controlled. Systolic blood pressure 130-150.. Saturating 98% on room air. Increase ramipril or 5 mg p.o. daily. Adjust dosage as needed. Goal of systolic blood pressure 120-130. 05/04/2018 patient's care was [facility] who suggested to keep systolic blood pressure between 150- 170 for the next 24 hours and it would be safe to continue aspirin 325, and Lovenox VT prophylaxis dosage. Repeat CT head tomorrow. (4) Dysarthria Is this a current diagnosis for this admission?: Yes Plan: As per problem #1. (5) Dysphagia Qualifiers: Dysphagia type: oropharyngeal phase Qualified Code(s): R13.12 - Dysphagia, oropharyngeal phase Is this a current diagnosis for this admission?: Yes Plan: Improved. Patient is p.o. tolerant. (6) Aspiration pneumonia Is this a current diagnosis for this admission?: Yes Plan: 05/06/2018 CXR Right middle lobe airspace disease possibly pneumonia likely due to aspiration as patient has severe dysphagia. ABG within normal limits. No leukocytosis or bandemia. Saturating 100% on room air. No signs of pneumonia. DC ceftriaxone. 4 days of IV ceftriaxone in total.
[2018-05-09] MEDS ORDERED: VANCOMYCIN HCL 0 MG in DEXTROSE 5%-WATER 250 ML IV NR (11:30)
[2018-05-09] MEDS ORDERED: VANCOMYCIN HCL 1,000 MG in DEXTROSE 5%-WATER 250 ML IV ONE (14:00)
--- NOTE | 2018-05-09 17:26 | Progress Note ---
Provider Note Provider Note: ID consult Note Asked to review patient's chart by Dr Mckeon. Pt not seen or examined. Pt is a 63 year old obese man with PMH including prior subdural hematoma, HTN and tobacco use who was admitted on 05/03/18 with 3 day hx of R sided weakness and slurred speech on exam he had R hemiparesis, dysarthria, R facial weakness, and R tongue deviation. MRI of the brain showed acute L pontine infarct. MRA showed attenuated appearance of L superior cerebellar artery and L AICA and mild- moderate atheromatous changes of the cavernous and supraclinoid R ICA. TTE did not show any obvious cardiac source of embolus; study quality was fair and no ASD, MVP, MV vegetation or AoV vegetation were seen. Initial CXR showed no infiltrate. Repeat CXR on 05/06 were read as showing RML airspace present worrisome for early or developing pneumonia, and blood cultures were drawn at that point. Rocephin was started, and then changed to vancomycin after one bottle of the four drawn on 05/06/18 grew MRSA. Impression/Recommendations MRSA in blood cultures, possible MRSA bacteremia - Pt has had no murmur noted on exam, no true fever, no leukocytosis, no subjective c/o constitutional complaints. - Careful examination of the patient should be undertaken to look for a source of MRSA bacteremia (e.g. infected PIV site or rash) and evaluate whether there any clinical evidence of complications are present (e.g. new onset joint pain and swelling or bony spinal tenderness on percussion/palpation). - Stroke and Staph aureus bacteremia should raise concern for endocarditis, but isolated posterior circulation infarct is less likely to be the result of cardioembolism, TTE was negative, only 1 bottle grew MRSA. - I agree that in absence of any other findings, this clinical scenario is consistent with either 1. contamination 2. true MRSA bacteremia with nosocomial onset from a removable focus (e.g. infected PIV) or from transient bacteremia from violation of his skin with PIV placement - Agree with repeat blood cultures. - If the repeat blood cultures show no growth and exam is benign, I would continue 2 weeks of vancomycin from date of negative blood cultures. Migue Daley MD REPLACED BY [facility] Infectious Diseases pager [phone]
[2018-05-09] MEDS ORDERED: HALOPERIDOL LACTATE INJ 5 MG/1 ML VIAL IM ONE (18:30)
[2018-05-09] MEDS: TRAZODONE HCL 50 MG TABLET PO PRN (22:03)
[2018-05-09] MEDS: ATORVASTATIN CALCIUM 40 MG TABLET PO SCH (22:04)
[2018-05-09] MEDS: HYDRALAZINE HCL INJ/PF 20 MG/1 ML SDV IV PRN (22:04)
[2018-05-09] MEDS: VANCOMYCIN HCL 1,250 MG in DEXTROSE 5%-WATER 250 ML IV SCH (22:11)
[2018-05-09] MEDS ORDERED: CHLORPROMAZINE HCL INJ 25 MG/1 ML AMPULE IV PRN (23:51)
[2018-05-10] MEDS ORDERED: CHLORPROMAZINE HCL INJ 25 MG/1 ML AMPULE ONE (00:40)
[2018-05-10 06:36] LABS: ABSOLUTE EOSINOPHILS # (AUTO) 0.1 10^3/uL (0.0-0.6); ABSOLUTE LYMPHOCYTES (AUTO) 1.1 10^3/uL (0.5-4.7); ABSOLUTE MONOCYTES (AUTO) 0.6 10^3/uL (0.1-1.4); ABSOLUTE NEUT (AUTO) 2.9 10^3/uL (1.7-8.2); BASOPHILS % (AUTO) 0.4 % (0-2); EOSINOPHILS % (AUTO) 2.7 % (0-6); HEMATOCRIT 38.8 % (37.9-51.0); HEMOGLOBIN 13.2 g/dL (13.5-17.0); MEAN CORPUSCULAR HEMOGLOBIN 27.7 pg (27.0-33.4); MEAN CORPUSCULAR VOLUME 81 fl (80-97); MONOCYTES % (AUTO) 12.9 % (3-13); PLATELET COUNT 240 10^3/uL (150-450); RED BLOOD COUNT 4.78 10^6/uL (4.35-5.55); RED CELL DISTRIBUTION WIDTH 13.2 % (11.5-14.0); TOTAL CELLS COUNTED % (AUTO) 100 %; WHITE BLOOD COUNT 4.8 10^3/uL (4.0-10.5)
[2018-05-10 07:03] LABS: ALANINE AMINOTRANSFERASE 70 U/L (21-72); ALBUMIN 3.7 g/dL (3.5-5.0); ALKALINE PHOSPHATASE 86 U/L (38-126); ANION GAP 9 (5-19); ASPARTATE AMINO TRANSFERASE 52 U/L (17-59); BILIRUBIN,DIRECT 0.2 mg/dL (0.0-0.4); BILIRUBIN,TOTAL 0.6 mg/dL (0.2-1.3); BLOOD UREA NITROGEN 20 mg/dL (7-20); CALCIUM 9.4 mg/dL (8.4-10.2); CARBON DIOXIDE 27 mmol/L (22-30); CHLORIDE 106 mmol/L (98-107); GLUCOSE 110 mg/dL (75-110); POTASSIUM 4.7 mmol/L (3.6-5.0); SODIUM 141.7 mmol/L (137-145); TOTAL PROTEIN 6.7 g/dL (6.3-8.2)
[2018-05-10] MEDS: RAMIPRIL 5 MG CAPSULE PO SCH (10:35)
[2018-05-10] MEDS: ASPIRIN 81 MG TABLET, CHEWABLE PO SCH (10:36)
[2018-05-10] MEDS: VANCOMYCIN HCL 1,250 MG in DEXTROSE 5%-WATER 250 ML IV SCH ×2 (10:36→21:42)
[2018-05-10] MEDS: ENOXAPARIN SODIUM INJ 40 MG/0.4 ML DISP.SYRIN SUBCUT SCH (10:36)
--- NOTE | 2018-05-10 16:02 | PDOC PROGRESS REPORT ---
Subjective Progress Note for:: 05/10/18 Subjective:: This is a 63 yr old male who presented with right sided weakness and slurred speech and was found to have a left pontine infarct on MRI. 05/06/2018. Patient has worsening of his neurological symptoms. Appears more somnolent but arousable, worsening aphasia, does not follow command. Repeat CT did not show any new infarct. Family was contacted about his CODE STATUS. Patient has 2 kids were out of state but he does not communicate with him. His sister who lives here in [place] stopped by after conversation with the patient decided to have the patient full code. 05/07/2018. No acute events overnight. Repeat CT head does not show any acute infarct. And has had improvement of his altered mental status. Patient is alert oriented x3 however with marked dysarthria. He has right facial droop, tongue deviating to the right side, and right hemiparesis. Denies any fever, chills, nausea, vomiting, diarrhea, constipation. Saturating 100% on room air, blood pressure maintained between 140s and 170s. Receiving daily PT/OT. 05/08/2018. No acute events overnight. Patient vitals have been stable. Neurologically unchanged. Patient has significant dysarthria and not cooperating with MENDS. On my encounter when asked his name he got irritated saying everybody is asking me that and i do not like it because of my speech problem. He is alert and oriented x3 does not seem to be in any acute distress still has right-sided hemiparesis with significant dysarthria. He is p.o. tolerant. 05/09/2018. No acute events overnight. Vitals stable. Neurologically unchanged. Significant dysarthria and right upper and lower extremity hemiparesis. He is very anxious to leave for rehab. Denies any fever, nausea, vomiting, diarrhea, constipation or any urinary symptoms. Patient is p.o. tolerant receiving PT while in hospital. Having normal bowel and bladder movements. 05/10/18: Assumed care today. Plan was to transfer patient to rehab yesterday but he was found to have MRSA bacteremia. Otherwise, no acute issues overnight. No acute neurologic issues. Pending repeat blood cultures. Reason For Visit: TIA, DECONDITIONING Physical Exam Vital Signs: Temp Pulse Resp BP Pulse Ox 98.3 F 135 H 16 123/61 91 L 02/26/19 11:51 05/10/18 11:51 05/10/18 11:51 05/10/18 11:51 05/10/18 11:51 Intake & Output 05/09/18 05/10/18 05/11/18 06:59 06:59 06:59 Intake Total 1170 1782 250 Output Total 1245 975 Balance -75 807 250 Weight 192 lb 0.362 oz 212 lb 1.355 oz General appearance: PRESENT: no acute distress, well-developed, well-nourished Head exam: PRESENT: atraumatic, normocephalic Eye exam: PRESENT: conjunctiva pink, EOMI, PERRLA. ABSENT: scleral icterus Ear exam: PRESENT: normal external ear exam Mouth exam: PRESENT: moist, tongue midline Neck exam: ABSENT: carotid bruit, JVD, lymphadenopathy, thyromegaly Respiratory exam: PRESENT: clear to auscultation snow. ABSENT: rales, rhonchi, wheezes Cardiovascular exam: PRESENT: RRR. ABSENT: diastolic murmur, rubs, systolic murmur Pulses: PRESENT: normal dorsalis pedis pul GI/Abdominal exam: PRESENT: normal bowel sounds, soft. ABSENT: distended, guarding, mass, organolmegaly, rebound, tenderness Rectal exam: PRESENT: deferred Neurological exam: PRESENT: alert, awake, oriented to person, oriented to place, oriented to time, oriented to situation, motor sensory deficit - right sided weakness 1/5 Results Laboratory Results: 05/10/18 06:20 05/10/18 06:20 05/10/18 05/10/18 06:20 06:20 WBC 4.8 RBC 4.78 Hgb 13.2 L Hct 38.8 MCV 81 MCH 27.7 MCHC 34.0 RDW 13.2 Plt Count 240 Seg Neutrophils % 61.0 Lymphocytes % 23.0 Monocytes % 12.9 Eosinophils % 2.7 Basophils % 0.4 Absolute Neutrophils 2.9 Absolute Lymphocytes 1.1 Absolute Monocytes 0.6 Absolute Eosinophils 0.1 Absolute Basophils 0.0 Sodium 141.7 Potassium 4.7 Chloride 106 Carbon Dioxide 27 Anion Gap 9 BUN 20 Creatinine 0.95 Est GFR ( Amer) > 60 Est GFR (Non-Af Amer) > 60 Glucose 110 Calcium 9.4 Magnesium 2.2 Total Bilirubin 0.6 AST 52 ALT 70 Alkaline Phosphatase 86 Total Protein 6.7 Albumin 3.7 05/06/18 13:58 Blood Blood Culture - Final Mrsa (Meth Resis Staph Aureus) 05/04/18 05/04/18 05/04/18 01:29 07:13 07:13 Creatine Kinase 222 H CK-MB (CK-2) 1.48 Troponin I 0.014 0.018 05/04/18 05/04/18 05/04/18 14:16 14:16 20:13 Creatine Kinase 247 H 279 H CK-MB (CK-2) 1.42 Troponin I 0.016 05/04/18 20:13 Creatine Kinase CK-MB (CK-2) 1.51 Troponin I 0.021 Impressions: Head MRI 05/04/18 00:00 IMPRESSION: Acute left pontine infarct. Diffuse atrophy with small vessel ischemic change. Minor mucosal thickening of the right maxillary sinus and ethmoid air cells. copyright 2010 [employer]- All Rights Reserved Carotid Doppler Study 05/04/18 03:03 IMPRESSION: NO HEMODYNAMICALLY SIGNIFICANT STENOSIS. Brain MRI with MRA 05/04/18 03:05 IMPRESSION: Attenuated appearance to the left superior cerebellar artery, and left anterior inferior cerebellar artery, which could reflect slow flow and/or partial occlusion. No other MRA evidence for vascular stenosis. At least mild to moderate atheromatous changes of the right cavernous and supraclinoid ICA. copyright 2010 [employer]- All Rights Reserved Chest X-Ray 05/06/18 08:58 IMPRESSION: Right middle lobe airspace disease worrisome for pneumonia Head CT 05/07/18 07:00 IMPRESSION: No acute intracranial findings. Assessment & Plan - Diagnosis (1) Right pontine cerebrovascular accident Is this a current diagnosis for this admission?: Yes Plan: Stable neurological status. He has residual right sided weakness. Alert oriented x3. Repeat CT head on 05/07/2018 shows no acute changes. Continue aspirin, statins, beta-blockers. Continue to optimize blood pressure. Echo LVEF more than 60%. Grade 1/4 mild diastolic dysfunction. No thrombus. (2) MRSA (methicillin resistant staph aureus) culture positive Is this a current diagnosis for this admission?: Yes Plan: First set of blood cultures grew MRSA 1/2. ?Contamination vs bacteremia from PIV. Noted ID recommendations to continue vancomycin 2 weeks from negative blood cultures. Will order for PICC line placement. - Time Time Spent with patient: 25-34 minutes
[2018-05-10] MEDS: ATORVASTATIN CALCIUM 40 MG TABLET PO SCH (21:42)
[2018-05-11] MEDS: ENOXAPARIN SODIUM INJ 40 MG/0.4 ML DISP.SYRIN SUBCUT SCH (09:30)
[2018-05-11] MEDS: VANCOMYCIN HCL 1,250 MG in DEXTROSE 5%-WATER 250 ML IV SCH ×2 (09:30→22:34)
[2018-05-11] MEDS: RAMIPRIL 5 MG CAPSULE PO SCH (09:30)
[2018-05-11] MEDS: ASPIRIN 81 MG TABLET, CHEWABLE PO SCH (09:30)
[2018-05-11 10:47] LABS: VANCOMYCIN,TROUGH 16.5 ug/mL (5.0-20.0)
[2018-05-11] MEDS ORDERED: NORMAL SALINE 10 ML SDV (AFTER EACH USE) IV PRN (15:00)
--- NOTE | 2018-05-11 15:47 | RADIOLOGY REPORT (SQ) ---
EXAM DESCRIPTION: PICC INSERTION; U/S GUIDE FOR VASCULAR ACCESS; FLUORO/CV PLACEMENT COMPLETED DATE/TIME: 05/11/2018 2:26 pm REASON FOR STUDY: care home antibiotics; IV ABX COMPARISON: None. FLUOROSCOPY TIME: 19 seconds 2 images saved to PACS. TECHNIQUE: Fluoroscopic and ultrasound guided PICC placement. LIMITATIONS: None. PROCEDURE: After written consent and assessment were obtained, the patient was brought into the fluo roscopy room and placed supine on the table. Ultrasound evaluation of potential access sites were per formed. After successfully identifying a patent left basilic vein, the left arm was prepped and drape d in a sterile fashion along with the ultrasound probe. The entry site was anesthetized with 1% lidoc eyad. A 21 gauge 7 cm needle was advanced through the skin and into the basilic vein under live ultra sound guidance. An ultrasound image was saved to PACS confirming access site. A .018 guide wire was then inserted through the needle and into the venous system. The needle was then removed and an 11 b lade scalpel was used to make a 1cm skin incision. A 5 fr peel-away sheath was advanced over the wir e and into the venous system. A measurement was then made using the existing wire and live fluoroscop ic guidance. The wire was then removed and trimmed. The PICC was advanced through the peel-away sheat h and into the venous system. The peel-away sheath was removed and the catheter was adhered to the pa tients arm with a stat lock. The catheter was then aspirated and flushed and a sterile bandage was pl aced over the access site. A fluoroscopic spot image was saved to PACS confirming the catheter tip w ithin the superior vena cava. IMPRESSION: SUCCESSFUL PLACEMENT OF A 5 FR DUAL LUMEN 44 CM PICC IN THE LEFT BASILIC VEIN. COMMENT: Patient medication list reviewed: Yes- Quality ID# 130:Eligible professional attests to doc umenting in the medical record they obtained, updated, or reviewed the patient's current medications. . Quality ID 145: Final reports for procedures using fluoroscopy that document radiation exposure katy karen, or exposure time and number of fluorographic images (if radiation exposure indices are not avail able) Quality ID #76: The patient was prepped and draped using maximum sterile barrier technique including cap, mask, sterile gown, sterile gloves, a large sterile sheet, hand hygiene, and 2% Chlorhexidine fo r cutaneous antisepsis. When ultrasound is used, sterile ultrasound techniques are followed requiring sterile gel and sterile probes. TECHNICAL DOCUMENTATION: JOB ID: [id number] [employer]- All Rights Reserved rev-07/30 Reading location - IP/workstation name: [email or web address]
--- NOTE | 2018-05-11 16:35 | PDOC PROGRESS REPORT ---
Subjective Progress Note for:: 05/11/18 Subjective:: No adverse events overnight. No new complaints. Vital signs been stable. He is been afebrile. He said he feels like he has no improvement in his right- sided extremities. Reason For Visit: TIA, DECONDITIONING Physical Exam Vital Signs: Temp Pulse Resp BP Pulse Ox 99.6 F 61 16 110/81 97 05/11/18 15:23 05/11/18 13:21 05/11/18 13:21 05/11/18 11:14 05/11/18 13:21 Intake & Output 05/10/18 05/11/18 05/12/18 06:59 06:59 06:59 Intake Total 1782 1150 250 Output Total 975 350 450 Balance 807 800 -200 Weight 96.2 kg 107 kg General appearance: PRESENT: no acute distress, well-developed, well-nourished Respiratory exam: PRESENT: clear to auscultation snow. ABSENT: rales, rhonchi, w heezes Cardiovascular exam: PRESENT: RRR. ABSENT: diastolic murmur, rubs, systolic murmur Pulses: PRESENT: normal dorsalis pedis pul GI/Abdominal exam: PRESENT: normal bowel sounds, soft. ABSENT: distended, guarding, mass, organolmegaly, rebound, tenderness Neurological exam: PRESENT: alert, awake, oriented to person, oriented to place, oriented to time, oriented to situation, motor sensory deficit - right sided weakness 1/5 Results Laboratory Results: 05/10/18 06:20 05/10/18 06:20 05/06/18 14:18 Blood Blood Culture - Final NO GROWTH IN 5 DAYS 05/04/18 05/04/18 05/04/18 01:29 07:13 07:13 Creatine Kinase 222 H CK-MB (CK-2) 1.48 Troponin I 0.014 0.018 05/04/18 05/04/18 05/04/18 14:16 14:16 20:13 Creatine Kinase 247 H 279 H CK-MB (CK-2) 1.42 Troponin I 0.016 05/04/18 20:13 Creatine Kinase CK-MB (CK-2) 1.51 Troponin I 0.021 Impressions: Head MRI 05/04/18 00:00 IMPRESSION: Acute left pontine infarct. Diffuse atrophy with small vessel ischemic change. Minor mucosal thickening of the right maxillary sinus and ethmoid air cells. copyright 2010 [employer]- All Rights Reserved Carotid Doppler Study 05/04/18 03:03 IMPRESSION: NO HEMODYNAMICALLY SIGNIFICANT STENOSIS. Brain MRI with MRA 05/04/18 03:05 IMPRESSION: Attenuated appearance to the left superior cerebellar artery, and left anterior inferior cerebellar artery, which could reflect slow flow and/or partial occlusion. No other MRA evidence for vascular stenosis. At least mild to moderate atheromatous changes of the right cavernous and supraclinoid ICA. copyright 2010 [employer]- All Rights Reserved Chest X-Ray 05/06/18 08:58 IMPRESSION: Right middle lobe airspace disease worrisome for pneumonia Head CT 05/07/18 07:00 IMPRESSION: No acute intracranial findings. Guidance Fluoroscopy 05/11/18 00:00 IMPRESSION: SUCCESSFUL PLACEMENT OF A 5 FR DUAL LUMEN 44 CM PICC IN THE LEFT BASILIC VEIN. Interventional Vascular Procedure 05/11/18 00:00 IMPRESSION: SUCCESSFUL PLACEMENT OF A 5 FR DUAL LUMEN 44 CM PICC IN THE LEFT BASILIC VEIN. PICC Line Insertion 05/11/18 00:00 IMPRESSION: SUCCESSFUL PLACEMENT OF A 5 FR DUAL LUMEN 44 CM PICC IN THE LEFT BASILIC VEIN. Assessment & Plan - Diagnosis (1) Acute ischemic cerebrovascular accident (CVA) involving right middle cerebral artery territory Is this a current diagnosis for this admission?: Yes Plan: Continue risk factor reduction along with aspirin and statin. Plan is for [facility] to go [facility]. (2) Gram-positive bacteremia Is this a current diagnosis for this admission?: Yes Plan: Showing a MRSA. 2 weeks of vancomycin per infectious disease. If his blood cultures are negative tomorrow, I will be for 72 hours, we will plan to disc harge him to [facility] facility at that time. If blood cultures are positive, we will have to send him for a [facility]. - Time Time Spent with patient: 25-34 minutes
[2018-05-11] MEDS: ATORVASTATIN CALCIUM 40 MG TABLET PO SCH (22:31)
[2018-05-11] MEDS: HYDRALAZINE HCL INJ/PF 20 MG/1 ML SDV IV PRN (22:32)
[2018-05-11] MEDS: NORMAL SALINE 10 ML SDV (SCHEDULED) IV SCH (22:34)
[2018-05-12] MEDS: RAMIPRIL 5 MG CAPSULE PO SCH (09:36)
[2018-05-12] MEDS: ASPIRIN 81 MG TABLET, CHEWABLE PO SCH (09:36)
[2018-05-12] MEDS: VANCOMYCIN HCL 1,250 MG in DEXTROSE 5%-WATER 250 ML IV SCH (09:36)
[2018-05-12] MEDS: NORMAL SALINE 10 ML SDV (SCHEDULED) IV SCH (09:37)
[2018-05-12] MEDS: ENOXAPARIN SODIUM INJ 40 MG/0.4 ML DISP.SYRIN SUBCUT SCH (09:37)
--- NOTE | 2018-05-12 13:21 | PDOC TRANSFER SUMMARY ---
General - Admit/Disc Date/PCP Admission Date/Primary Care Provider: 05/04/18 02:58 Discharge Date: 05/12/18 - Discharge Diagnosis (1) Acute ischemic cerebrovascular accident (CVA) involving right middle cerebral artery territory Is this a current diagnosis for this admission?: Yes Summary: He has some persistent left-sided deficits and some facial droop but has been eating and drinking without difficulty. He is on aspirin and a statin. He has had adjustments to his blood pressure medication regimen to bring him under better control. Physical therapy has recommended halfway for rehab. (2) Gram-positive bacteremia Is this a current diagnosis for this admission?: Yes Summary: He had one blood culture returned positive for MRSA. It is uncertain why the blood cultures were drawn in the first place. We started him empirically on vancomycin, and consulted infectious disease. Their recommendation was to repeat the cultures, and if they were negative to continue him on IV vancomycin for 2 weeks, and then repeat the cultures. At this point he is negative on his repeat cultures for 72 hours. He needs 11 more days of IV vancomycin. At that time once completed, he will need repeat blood cultures drawn. If those cultures are negative, he can have his PICC line removed. - Additional Information Resuscitation Status: Full Code Discharge Diet: Cardiac Discharge Activity: Supervised Activity Home Medications: Amlodipine Besylate [Norvasc 10 mg Tablet] 10 mg PO DAILY 05/04/18 Furosemide [Lasix 20 mg Tablet] 20 mg PO QAM 05/04/18 Multivit-Minerals/Folic Acid [Centrum Vitamints Chew Tab] 400 mcg PO DAILY 05/04/18 Phenylephrine HCl [Sudafed PE] 10 mg PO Q4HP PRN 05/04/18 Potassium Chloride [Klor-Con M10] 10 meq PO DAILY 05/04/18 Aspirin [Aspirin 81 mg Chewable Tablet] 81 mg PO DAILY tab.chew 05/12/18 Atorvastatin Calcium [Lipitor 40 mg Tablet] 80 mg PO QHS tablet 05/12/18 Ramipril [Altace 5 mg Capsule] 5 mg PO DAILY capsule 05/12/18 Vancomycin HCl [Vancocin Inj 1000 mg Vial] 1,250 mg IV Q12 vial 05/12/18 History of Present Illness Admission Date/PCP: 05/04/18 02:58 History of Present Illness: GORDON HERNANDEZ is a 63 year old male who presented to the emergency room with a 3-day history of right-sided weakness and slurring of speech. He indicates that his problem began when he woke 3 days ago and noticed that his right side did not want to move well and was very weak and he was unable to stand up or walk. He also noticed that he had slurred speech when he tried to call for help. His symptoms have persisted unchanged since onset. He rates his weakness as severe. He denies accompanying symptoms: specifically denying chest pain, palpitations, syncope and seizure activity. He admits to a history of hypertension and further admits that he has not taken medications for quite some time. He denies prior similar episodes and has not identified any aggravating or ameliorating factors for his current weakness or slurring of speech. In the emergency room he was found to have a negative initial evaluation on CT scan and no significant abnormalities on his laboratory workup. Patient was subsequently admitted to the [facility] for further evaluation and treatment. Hospital Course Hospital Course: He was symptomatic for 3 days before he ever sought medical attention. He is not had any improvement in his deficits since his initial presentation. He is on aspirin and a statin, and is being sent to a halfway facility for physical therapy. At one point some blood cultures were drawn for uncertain reason, and 1 of the 4 bottles turned positive for MRSA. He is not really showing any signs of infection at this time, but was empirically started on vancomycin and infectious disease was consulted. Their recommendations are as noted above. Today is day 3 of 14 of vancomycin. His labs and examination were reassuring and he was discharged in good condition. Physical Exam Vital Signs: Temp Pulse Resp BP Pulse Ox 98.5 F 61 16 120/59 L 96 05/12/18 11:44 05/12/18 11:44 05/12/18 11:44 05/12/18 11:44 05/12/18 11:44 Intake & Output 05/11/18 05/12/18 05/13/18 06:59 06:59 06:59 Intake Total 1150 1000 605 Output Total 350 900 300 Balance 800 100 305 Weight 107 kg 106.3 kg General appearance: PRESENT: no acute distress, well-developed, well-nourished Respiratory exam: PRESENT: clear to auscultation snow. ABSENT: rales, rhonchi, wheezes Cardiovascular exam: PRESENT: RRR. ABSENT: diastolic murmur, rubs, systolic murmur Pulses: PRESENT: normal dorsalis pedis pul GI/Abdominal exam: PRESENT: normal bowel sounds, soft. ABSENT: distended, guarding, mass, organolmegaly, rebound, tenderness Neurological exam: PRESENT: alert, awake, oriented to person, oriented to place, oriented to time, oriented to situation, motor sensory deficit - right sided weakness / Results Laboratory Results: 05/10/18 06:20 05/10/18 06:20 05/06/18 14:18 Blood Blood Culture - Final NO GROWTH IN 5 DAYS 05/04/18 05/04/18 05/04/18 01:29 07:13 07:13 Creatine Kinase 222 H CK-MB (CK-2) 1.48 Troponin I 0.014 0.018 05/04/18 05/04/18 05/04/18 14:16 14:16 20:13 Creatine Kinase 247 H 279 H CK-MB (CK-2) 1.42 Troponin I 0.016 05/04/18 20:13 Creatine Kinase CK-MB (CK-2) 1.51 Troponin I 0.021 Impressions: Head MRI 05/04/18 00:00 IMPRESSION: Acute left pontine infarct. Diffuse atrophy with small vessel ischemic change. Minor mucosal thickening of the right maxillary sinus and ethmoid air cells. copyright 2010 [employer]- All Rights Reserved Carotid Doppler Study 05/04/18 03:03 IMPRESSION: NO HEMODYNAMICALLY SIGNIFICANT STENOSIS. Brain MRI with MRA 05/04/18 03:05 IMPRESSION: Attenuated appearance to the left superior cerebellar artery, and left anterior inferior cerebellar artery, which could reflect slow flow and/or partial occlusion. No other MRA evidence for vascular stenosis. At least mild to moderate atheromatous changes of the right cavernous and supraclinoid ICA. copyright 2011 [employer]- All Rights Reserved Chest X-Ray 05/06/18 08:58 IMPRESSION: Right middle lobe airspace disease worrisome for pneumonia Head CT 05/07/18 07:00 IMPRESSION: No acute intracranial findings. Guidance Fluoroscopy 05/11/18 00:00 IMPRESSION: SUCCESSFUL PLACEMENT OF A 5 FR DUAL LUMEN 44 CM PICC IN THE LEFT BASILIC VEIN. Interventional Vascular Procedure 05/11/18 00:00 IMPRESSION: SUCCESSFUL PLACEMENT OF A 5 FR DUAL LUMEN 44 CM PICC IN THE LEFT BASILIC VEIN. PICC Line Insertion 05/11/18 00:00 IMPRESSION: SUCCESSFUL PLACEMENT OF A 5 FR DUAL LUMEN 44 CM PICC IN THE LEFT BASILIC VEIN. Transfer Plan - Time Spent with Patient Time spent with patient: Greater than 30 Minutes Qualifiers - * PATIENT BEING DISCHARGED WITH ANY OF THE FOLLOWING DIAGNOSIS: Stroke Stroke Pt being discharged on Anti-thrombolytic therapy?: Yes Stroke Pt being discharged on Anti-coagulation therapy?: No Reason(s) for not prescribing Anti-coagulation therapy:: Not indicated Stroke Pt being discharged on Statins?: Yes
[2018-05-12 18:20] VITALS: BP 120/59
== END 2018-05-12 18:20 | DRG 64 ==
LOC: ER 16:48 → EH 05-04 02:58 → 3S 05-04 13:32 → 3N 05-09 18:47
PROVIDERS: ADMIT Emergency Medicine; ATTEND Emergency Medicine
PROC: 3E0F73Z Introduction of Anti-inflammatory into Respiratory Tract, Via Natural or Artificial Opening (ICD-10-PCS; principal; 2018-05-04)
PROC: 02HV33Z Insertion of Infusion Device into Superior Vena Cava, Percutaneous Approach (ICD-10-PCS; 2018-05-11)
PROC: B548ZZA Ultrasonography of Superior Vena Cava, Guidance (ICD-10-PCS; 2018-05-11)
PROC: B5181ZA Fluoroscopy of Superior Vena Cava using Low Osmolar Contrast, Guidance (ICD-10-PCS; 2018-05-11)
PROC: 3E02340 Introduction of Influenza Vaccine into Muscle, Percutaneous Approach (ICD-10-PCS; 2018-05-12)
DX: I63.411 Cerebral infarction due to embolism of right middle cerebral artery (principal); I61.3 Nontraumatic intracerebral hemorrhage in brain stem; J69.0 Pneumonitis due to inhalation of food and vomit; R78.81 Bacteremia; G81.91 Hemiplegia, unspecified affecting right dominant side; R29.810 Facial weakness; I10 Essential (primary) hypertension; F17.210 Nicotine dependence, cigarettes, uncomplicated; R13.12 Dysphagia, oropharyngeal phase; Z60.2 Problems related to living alone; Z23 Encounter for immunization; Z79.899 Other long term (current) drug therapy; Z79.891 Long term (current) use of opiate analgesic; Z91.19 Patient's noncompliance with other medical treatment and regimen; Z91.14 Patient's other noncompliance with medication regimen; Z80.9 Family history of malignant neoplasm, unspecified
CPT/HCPCS: 36415; 36569; 70450; 70544; 70551; 71045; 76937; 77001; 80048; 80053; 80061; 80202; 80307; 81001; 82550; 82553; 82803; 82962; 83036; 83735; 84443; 84484; 85025; 85027; 85610; 85730; 87040; 87077; 87186; 90686; 93005; 93010; 93306; 93880; 94640; 99285; J0360; J0696; J1642; J1650; J1652; J3230; J3370; J3490; J7060; S0119